=== PATIENT | female | born 1965 | race Caucasian/White ===

== ENCOUNTER 2019-06-21 19:02 | Emergency (ER) | payer OTHER ==
[~2019-06-21] VITALS: Ht 165.1 cm; Wt 200.9 kg
[~2019-06-21 19:02] MED LIST: FLUC150T PO; HYDR-3164 PO
[2019-06-21 19:21] VITALS: BP 140/71
[2019-06-21] MEDS ORDERED: ORPH100T PO (19:30)
[2019-06-21] MEDS ORDERED: METH4TAB2 PO (19:30)
--- NOTE | 2019-06-21 19:31 | PHYS DOC ---
Past Medical History Past Medical History: Anxiety, Depression, GERD, High Cholesterol Additional Past Medical Histor: kidney stone chronic knee pain Past Surgical History: Other Additional Past Surgical Histo: eye sx Smoking Status: Never Smoker Alcohol Use: None Drug Use: None Adult General Chief Complaint Chief Complaint: LOWER EXT PAIN [facility] HPI Patient is a 53 year old female who presents with right hip pain that radiates down the right leg. The patient states that she has had no trauma. The patient states that it is okay when she is walking and standing but when she reclines is when it hurts. She states her pain right now is 1 out of 10 in severity. Denies additional symptoms. Complete ROS were reviewed and found to be within normal limits, except as documented in the HPI Allergies Allergies Allergies Coded Allergies Type Severity Reaction Last Updated Verified amitriptyline HCl Adverse Reaction Intermediate Unknown 02/04/15 Yes Uncoded Allergies Type Severity Reaction Last Updated Verified red meat Adverse Reaction Mild GI upset 02/04/15 Physical Exam Physical Exam Constitutional: Well developed, well nourished, no acute distress, non-toxic appearance. [] HENT: Normocephalic, atraumatic Back: R lower back tenderness that radiates down the R leg. Neurologic: Alert and oriented X 3 Psychologic: Affect normal, judgement normal, mood normal. [] EKG EKG [] Radiology/Procedures Radiology/Procedures [] Course & Med Decision Making Course & Med Decision Making Pertinent Labs and Imaging studies reviewed. (See chart for details) Patient appears to be having sciatic leg pain. Will prescribe Medrol Dosepak, and prescribe muscle relaxer. Dragon Disclaimer Dragon Disclaimer This electronic medical record was generated, in whole or in part, using a voice recognition dictation system. Departure Departure Impression: Primary Impression: Sciatica Disposition: HOME, SELF-CARE Condition: STABLE Referrals: MARITA JJ MD (PCP) Patient Instructions: Sciatica Additional Instructions: Thank you for visiting [facility]. We appreciate you trusting us with your care. If any additional problems come up don't hesitate to return to visit us. Please follow up with your primary care provider so they can plan additional care if needed and know about the problem that you had. If symptoms worsen come back to the Emergency Department. Any concerning symptoms that start such as chest pain, shortness of air, weakness or numbness on one side of the body, running high fevers or any other concerning symptoms return to the ER. Please fill your medications at any pharmacy and follow the prescription instructions. Scripts Orphenadrine Citrate (ORPHENADRINE CITRATE) 100 Mg Tablet.er 100 MG PO BID PRN for MUSCLE PAIN for 5 Days, #10 TAB.SR Prov: MARITA CHAVEZ APRN 06/21/19 Methylprednisolone (MEDROL) 4 Mg Tab.ds.pk 1 PKG PO UD, #1 PKG Prov: MARITA CHAVEZ APRN 06/21/19 Problem Qualifiers Primary Impression: Sciatica Laterality: right Qualified Codes: M54.31 - Sciatica, right side MARITA CHAVEZ APRN Jun 21, 2019 19:31
== END 2019-06-21 20:16 | disposition home or self-care (01) ==
LOC: ER 19:02
DX: M54.31 Sciatica, right side (principal); R07.81 Pleurodynia; F41.9 Anxiety disorder, unspecified; F32.9 Major depressive disorder, single episode, unspecified; K21.9 Gastro-esophageal reflux disease without esophagitis; E78.00 Pure hypercholesterolemia, unspecified; G89.29 Other chronic pain; Z87.442 Personal history of urinary calculi; Z98.890 Other specified postprocedural states; Z91.018 Allergy to other foods; Z88.8 Allergy status to other drugs, medicaments and biological substances
CPT/HCPCS: 99284

== ENCOUNTER → 2019-08-24 | Outpatient (CLI) | payer OTHER ==
[~2019-08-24] MED LIST changes: +METH4TAB2 PO; +ORPH100T PO
--- NOTE | 2019-08-24 08:23 | RAD ---
ABDOMEN COMPLETE History: Reason: ABDOMINAL PAIN / Spl. Instructions: / History: Comparison: None. Technique: Sonographic examination of the abdomen was performed and multiple grayscale and color Doppler static images were obtained. Findings: Liver demonstrates increased echogenicity. The liver measures 17.5 cm. Portal flow is patent. Common bile duct measures 3 mm in diameter. Cholelithiasis. No gallbladder wall thickening. Positive sonographic Meraz sign. No pericholecystic fluid. Visualized pancreas is not well seen due to overlying bowel gas. The right kidney measures 12.3 x 5.1 x 3.9 cm. No hydronephrosis. The left kidney measures 13.1 x 5.3 x 4.7 cm. No hydronephrosis. The spleen measures 12 cm. Aorta and IVC not well seen due to overlying bowel gas. IMPRESSION: 1. Cholelithiasis with positive sonographic Meraz sign. No gallbladder wall thickening or pericholecystic fluid. HIDA scan can further evaluate gallbladder function as clinically warranted. 2. Hepatomegaly with increased echotexture, may indicate steatosis. Electronically signed by: Yayo Solis DO (08/24/2019 8:20 AM) [facility]
== END ==
LOC: US 06:52
PROVIDERS: ATTEND Family Medicine
DX: K80.20 Calculus of gallbladder without cholecystitis without obstruction (principal); R16.0 Hepatomegaly, not elsewhere classified
CPT/HCPCS: 76700

== ENCOUNTER 2019-10-23 16:14 | Inpatient (IN) | payer OTHER ==
[~2019-10-23] VITALS: Ht 167.6 cm; Wt 206.4 kg
[2019-10-23 16:30] VITALS: BP 122/65
--- NOTE | 2019-10-23 16:35 | NUR ---
Spoke with STEPAN Rolle nursing supervisor drying and softening re: obtaining bariatric bed, stated she would get one to pt later this evening.
[2019-10-23] MEDS ORDERED: ROSU20TA28 PO (16:36)
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
[2019-10-23] MEDS ORDERED: DOCUSATE SODIUM 100 MG CAPSULE. PO PRN (17:30)
[2019-10-23] MEDS ORDERED: ACETAMINOPHEN 325 MG TABLET. PO PRN (17:30)
--- NOTE | 2019-10-23 17:45 | NUR ---
[facility] stated they would fax list. Dr. Simmons on the unit, notified of list to be faxed by pharmacy.
--- NOTE | 2019-10-23 18:19 | NUR ---
Unable to visualize IV site per this RN and STEPAN Dorantes. SariahRn nursing supervisor contact lens stated she would come to attempt.
[2019-10-23] MEDS ORDERED: VANCOMYCIN 2 GM in IV NORMAL SALINE 500ML BAG 500 ML IV ONE (18:30)
[2019-10-23] MEDS ORDERED: HYDROcodone/APAP 5/325MG 1 TAB TABLET PO PRN (18:45)
[2019-10-23 19:30] LABS: ALBUMIN/GLOBULIN RATIO 0.7 (1.0-1.7); C-REACTIVE PROTEIN 55.8 mg/L (0-3.3); CALCIUM 8.8 mg/dL (8.5-10.1); CREATININE 0.8 mg/dL (0.6-1.0); GFR 75.6; POTASSIUM 3.8 mmol/L (3.5-5.1); TOTAL BILIRUBIN 0.5 mg/dL (0.2-1.0); TOTAL PROTEIN 7.4 g/dL (6.4-8.2)
[2019-10-23 19:47] VITALS: BP 120/56
[2019-10-23 20:25] LABS: BASO % 0 % (0-3); EOS # 0.4 x10^3/uL (0.0-0.7); EOS % 5 % (0-3); HEMATOCRIT 25.2 % (36.0-47.0); HEMOGLOBIN 8.2 g/dL (12.0-15.5); LYMPH # 1.5 x10^3/uL (1.0-4.8); LYMPH % 18 % (24-48); MEAN CORPUSCULAR HEMOGLOBIN 28 pg (25-35); MEAN CORPUSCULAR HGB CONC 33 g/dL (31-37); MEAN CORPUSCULAR VOLUME 87 fL (79-100); MONO # 0.6 x10^3/uL (0.0-1.1); MONO % 8 % (0-9); NEUT # 5.7 x10^3/uL (1.8-7.7); NEUT % 69 % (31-73); PLATELET COUNT 412 x10^3/uL (140-400); RED CELL DISTRIBUTION WIDTH 16.4 % (11.5-14.5); WHITE BLOOD COUNT 8.3 x10^3/uL (4.0-11.0)
[2019-10-23] MEDS: VANCOMYCIN PER PHARMACY MC PRN (20:55)
--- NOTE | 2019-10-23 20:59 | NUR ---
Pharmacy Vancomycin Dosing Note S:Consulted to monitor and dose vancomycin started 10/23/19. O:PAULINA CRISTINA is a 53 year old F with Cellulitis Possible abscess . Height: 5 feet, 6 inches Weight: 204.7 kg Hudson Body Weight: 59.30 Adjusted Body Weight: 117.46 Dosing Weight: Actual Other Antibiotics: Cefazolin 2gm IVPB Q8HRS LABS: Last BUN: 8 Last Creatinine: 0.8 Creatinine Clearance: 154 mL/min Last WBC: 8.3 Last Procalcitonin: Tmax (past 24 hours): 98.0 Microbiology: I/O: Drug Levels: Last level: on at Last dose given 10/23/19 at 2004 Vancomycin Dosing: Loading Dose: 2000 mg x1 Dosing Weight: Actual Target Trough: 10-20 A: Based on weight and est. CrCl of 154: P: 1. Vancomycin 2000mg once, followed by Vancomycin 1500 mg IV q8h. 2. Follow up Trough level on 10/24/19 at 1930. 3. Pharmacy will continue to monitor, follow and adjust therapy as needed. Tru Montes De Oca [facility], 10/23/19 2100
[2019-10-23 22:04] VITALS: BP 126/57
[2019-10-23] MEDS: GABAPENTIN 100 MG CAPSULE. PO SCH (22:19)
[2019-10-23] MEDS: ATORVASTATIN CALCIUM 40 MG TABLET. PO SCH (22:19)
[2019-10-23] MEDS: NYSTATIN TOPICAL POWDER 15GM BOTTLE. TP SCH (22:20)
--- NOTE | 2019-10-23 22:55 | RAD ---
Left lower extremity venous duplex study 10/23/2019 Clinical History: Left leg swelling. Technique: Using a combination of real time ultrasound imaging and color-flow and pulse Doppler imaging techniques along with graded compression and augmentation, duplex evaluation of the deep venous system of the the left lower extremity was performed. Multiple images were obtained. Findings: There is no sonographic evidence of deep venous thrombosis involving the visualized deep venous structures of the left lower extremity. Impression: Negative study. Electronically signed by: Keegan Mercado MD (10/23/2019 10:52 PM) [id number]
[2019-10-23] MEDS: HYDROcodone/APAP 7.5/325MG 1 TAB TABLET PO PRN (23:18)
[2019-10-24 03:52] VITALS: BP 114/46
[2019-10-24] MEDS: VANCOMYCIN 1.5 GM in IV NORMAL SALINE 500ML BAG 500 ML IV SCH ×3 (04:23→21:51)
[2019-10-24] MEDS: HYDROcodone/APAP 7.5/325MG 1 TAB TABLET PO PRN ×4 (05:39→21:52)
[2019-10-24 06:15] LABS: BASO % 0 % (0-3); EOS # 0.4 x10^3/uL (0.0-0.7); EOS % 6 % (0-3); HEMATOCRIT 23.7 % (36.0-47.0); HEMOGLOBIN 7.8 g/dL (12.0-15.5); LYMPH # 1.8 x10^3/uL (1.0-4.8); LYMPH % 28 % (24-48); MEAN CORPUSCULAR HEMOGLOBIN 28 pg (25-35); MEAN CORPUSCULAR HGB CONC 33 g/dL (31-37); MEAN CORPUSCULAR VOLUME 87 fL (79-100); MONO # 0.5 x10^3/uL (0.0-1.1); MONO % 8 % (0-9); NEUT # 3.8 x10^3/uL (1.8-7.7); NEUT % 58 % (31-73); PLATELET COUNT 369 x10^3/uL (140-400); RED BLOOD COUNT 2.74 x10^6/uL (3.50-5.40); RED CELL DISTRIBUTION WIDTH 16.1 % (11.5-14.5); WHITE BLOOD COUNT 6.5 x10^3/uL (4.0-11.0)
[2019-10-24 06:17] LABS: CALCIUM 8.2 mg/dL (8.5-10.1); CREATININE 0.7 mg/dL (0.6-1.0); GFR 88.2; POTASSIUM 3.7 mmol/L (3.5-5.1)
[2019-10-24 07:00] VITALS: BP 128/66
--- NOTE | 2019-10-24 08:43 | PDOC ---
Infectious Disease Note Vital Sign Vital Signs Vital Signs Date Time Temp Pulse Resp B/P (MAP) Pulse Ox O2 Delivery O2 Flow Rate FiO2 10/24/19 07:00 97.9 77 16 128/66 (86) 95 Room Air 97.9 Labs Lab Laboratory Tests Test 10/23/19 18:50 10/23/19 19:48 10/24/19 04:15 Sodium Level 140 mmol/L (136-145) 143 mmol/L (136-145) Potassium Level 3.8 mmol/L (3.5-5.1) 3.7 mmol/L (3.5-5.1) Chloride Level 103 mmol/L (98-107) 107 mmol/L (98-107) Carbon Dioxide Level 29 mmol/L (21-32) 29 mmol/L (21-32) Anion Gap 8 (6-14) 7 (6-14) Blood Urea Nitrogen 8 mg/dL (7-20) 7 mg/dL (7-20) Creatinine 0.8 mg/dL (0.6-1.0) 0.7 mg/dL (0.6-1.0) Estimated GFR (Cockcroft-Gault) 75.6 88.2 BUN/Creatinine Ratio 10 (6-20) Glucose Level 118 mg/dL (70-99) 92 mg/dL (70-99) Calcium Level 8.8 mg/dL (8.5-10.1) 8.2 mg/dL (8.5-10.1) Iron Level 23 ug/dL (50-170) Total Iron Binding Capacity 260 ug/dL (250-450) Iron Saturation 9 % (15-34) Total Bilirubin 0.5 mg/dL (0.2-1.0) Aspartate Amino Transf (AST/SGOT) 18 U/L (15-37) Alanine Aminotransferase (ALT/SGPT) 17 U/L (14-59) Alkaline Phosphatase 123 U/L (46-116) C-Reactive Protein, Quantitative 55.8 mg/L (0-3.3) Total Protein 7.4 g/dL (6.4-8.2) Albumin 3.0 g/dL (3.4-5.0) Albumin/Globulin Ratio 0.7 (1.0-1.7) White Blood Count 8.3 x10^3/uL (4.0-11.0) 6.5 x10^3/uL (4.0-11.0) Red Blood Count 2.90 x10^6/uL (3.50-5.40) 2.74 x10^6/uL (3.50-5.40) Hemoglobin 8.2 g/dL (12.0-15.5) 7.8 g/dL (12.0-15.5) Hematocrit 25.2 % (36.0-47.0) 23.7 % (36.0-47.0) Mean Corpuscular Volume 87 fL (79-100) 87 fL (79-100) Mean Corpuscular Hemoglobin 28 pg (25-35) 28 pg (25-35) Mean Corpuscular Hemoglobin Concent 33 g/dL (31-37) 33 g/dL (31-37) Red Cell Distribution Width 16.4 % (11.5-14.5) 16.1 % (11.5-14.5) Platelet Count 412 x10^3/uL (140-400) 369 x10^3/uL (140-400) Neutrophils (%) (Auto) 69 % (31-73) 58 % (31-73) Lymphocytes (%) (Auto) 18 % (24-48) 28 % (24-48) Monocytes (%) (Auto) 8 % (0-9) 8 % (0-9) Eosinophils (%) (Auto) 5 % (0-3) 6 % (0-3) Basophils (%) (Auto) 0 % (0-3) 0 % (0-3) Neutrophils # (Auto) 5.7 x10^3/uL (1.8-7.7) 3.8 x10^3/uL (1.8-7.7) Lymphocytes # (Auto) 1.5 x10^3/uL (1.0-4.8) 1.8 x10^3/uL (1.0-4.8) Monocytes # (Auto) 0.6 x10^3/uL (0.0-1.1) 0.5 x10^3/uL (0.0-1.1) Eosinophils # (Auto) 0.4 x10^3/uL (0.0-0.7) 0.4 x10^3/uL (0.0-0.7) Basophils # (Auto) 0.0 x10^3/uL (0.0-0.2) 0.0 x10^3/uL (0.0-0.2) Objective Assessment pt seen, consult dictated Plan Plan of Care / LEV JASMINE MD Oct 24, 2019 08:43
[2019-10-24] MEDS: NYSTATIN TOPICAL POWDER 15GM BOTTLE. TP SCH ×2 (09:02→21:52)
[2019-10-24] MEDS: GABAPENTIN 100 MG CAPSULE. PO SCH ×3 (09:02→21:51)
--- NOTE | 2019-10-24 09:11 | NUR ---
Spoke with [facility] re: pt's med list. They stated they would have someone fax the list.
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
--- NOTE | 2019-10-24 10:06 | NUR ---
Pt. sitting in chair, speaking with therapy. Very large pool of blood noted to be dripping from pt's L leg wound. Pt. states she has not moved. Abd's, Kerlix and chux placed around leg. Page sent to Dr. Clarke.
--- NOTE | 2019-10-24 10:20 | NUR ---
SW following. 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 Pt on IV vanc, cefazolin, wound care following. PT/OT ordered. SW will continue to follow.
--- NOTE | 2019-10-24 10:25 | NUR ---
Dr. Clarke on the unit and to see pt, notified of large amount of drainage from leg wound.
--- NOTE | 2019-10-24 10:27 | NUR ---
[facility] contacted again re: pt's med list. The pharmacy was sending to the incorrect fax number. Stated they would attempt again.
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
[2019-10-24 11:00] VITALS: BP 136/54
[2019-10-24] MEDS ORDERED: TRIA1TAB3 PO (11:06)
[2019-10-24] MEDS ORDERED: ERGO500027 PO (11:06)
[2019-10-24] MEDS ORDERED: CITA40TA5 PO (11:06)
[2019-10-24] MEDS ORDERED: IBUP800T19 PO (11:06)
[2019-10-24] MEDS ORDERED: SENN1TAB62 PO (11:06)
[2019-10-24] MEDS ORDERED: HYDR-2763 PO ×2 (11:06)
[2019-10-24] MEDS ORDERED: LEVO25TA4 PO (11:06)
[2019-10-24] MEDS ORDERED: FAMO20TA5 PO (11:06)
[2019-10-24] MEDS ORDERED: FLUC150T2 NS (11:06)
[2019-10-24] MEDS ORDERED: OXYC1TAB15 PO (11:06)
[2019-10-24] MEDS ORDERED: NORT25CA PO (11:06)
[2019-10-24] MEDS ORDERED: CRESTOR40 MG PO (11:06)
[2019-10-24] MEDS: PIPERACILLIN/TAZOBACTAM 4.5 GM in IV NORMAL SALINE 100ML 100 ML IV SCH ×2 (12:06→17:37)
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
[2019-10-24] MEDS ORDERED: BISACODYL 5 MG TABLET.DR. PO PRN (12:45)
[2019-10-24] MEDS ORDERED: POLYETHYLENE GLYCOL 3350 17 GM PACKET. PO PRN (12:45)
[2019-10-24] MEDS: FERROUS SULFATE 325 MG TABLET. PO SCH (13:43)
[2019-10-24] MEDS: PANTOPRAZOLE 40 MG TABLET.DR. PO SCH (13:43)
[2019-10-24] MEDS: LACTOBACILLUS RHAMNOSUS GG 1 CAPSULE. PO SCH ×2 (13:43→21:51)
[2019-10-24 15:00] VITALS: BP 130/63
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
[2019-10-24] MEDS ORDERED: CYANOCOBALAMIN (VITAMIN B-12) 1,000 MCG/ML VIAL IM ONE (16:15)
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
[2019-10-24] MEDS: CYANOCOBALAMIN (VITAMIN B-12) 1,000 MCG/ML VIAL IM SCH (17:15)
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
[2019-10-24 19:00] VITALS: BP 129/57
[2019-10-24 20:49] LABS: FECAL OB PT NEGATIVE (NEG)
[2019-10-24 21:04] LABS: VANC TR 19.6 mcg/mL (10.0-20.0)
[2019-10-24] MEDS: VANCOMYCIN PER PHARMACY MC PRN (21:24)
--- NOTE | 2019-10-24 21:25 | NUR ---
Pharmacy Vancomycin Dosing Note S: Consulted to monitor and dose vancomycin started 10/23/19. O: PAULINA CRISTINA is a 53 year old F with Cellulitis, Possible abscess . Other Antibiotics: Cefazolin 2gm IVPB Q8HRS LABS: Last BUN: 7 Last Creatinine: 0.7 Creatinine Clearance: 177 mL/min Last WBC: 6.5 Last Procalcitonin: Tmax (past 24 hours): 99.7 Microbiology: I/O: 200/- 1VOID Drug Levels: Last Trough level: 19.6 on 10/24/19 at 2035 Last dose given 10/24/19 at 1338 Vancomycin Dosing: Dosing Weight: Actual Target Trough: 10-20 A: Based on: Trough,Actual Wt and CrCl P: 1. 10/24/19 Continue Vancomycin 1500 mg IV q8h 2. Follow up Trough level in 5 to 7 days as needed 3. Pharmacy will continue to monitor, follow and adjust therapy as needed. BRANDEN LANGLEY RPH, 10/24/[id number] Signed: 10/24/19 at 2125 by BRANDEN LANGLEY RPH PHA
[2019-10-24] MEDS: ATORVASTATIN CALCIUM 40 MG TABLET. PO SCH (21:51)
[2019-10-24 23:00] VITALS: BP 123/52
[2019-10-25] MEDS: PIPERACILLIN/TAZOBACTAM 4.5 GM in IV NORMAL SALINE 100ML 100 ML IV SCH ×5 (00:10→23:57)
[2019-10-25 02:09] LABS: HEMOGLOBIN A1C 5.5 % (4.8-5.6)
[2019-10-25 03:00] VITALS: BP 135/61
[2019-10-25] MEDS: VANCOMYCIN 1.5 GM in IV NORMAL SALINE 500ML BAG 500 ML IV SCH ×3 (04:37→20:12)
[2019-10-25] MEDS: HYDROcodone/APAP 7.5/325MG 1 TAB TABLET PO PRN ×3 (06:52→22:09)
[2019-10-25 07:00] VITALS: BP_SYST 104; BP_SYST 117; BP_DIAS 46; BP_DIAS 49
[2019-10-25 07:59] LABS: BASO % 0 % (0-3); EOS # 0.4 x10^3/uL (0.0-0.7); EOS % 5 % (0-3); HEMATOCRIT 23.8 % (36.0-47.0); HEMOGLOBIN 7.8 g/dL (12.0-15.5); LYMPH # 1.2 x10^3/uL (1.0-4.8); LYMPH % 15 % (24-48); MEAN CORPUSCULAR HEMOGLOBIN 28 pg (25-35); MEAN CORPUSCULAR HGB CONC 33 g/dL (31-37); MEAN CORPUSCULAR VOLUME 86 fL (79-100); MONO # 0.5 x10^3/uL (0.0-1.1); MONO % 7 % (0-9); NEUT # 5.6 x10^3/uL (1.8-7.7); NEUT % 73 % (31-73); PLATELET COUNT 348 x10^3/uL (140-400); RED BLOOD COUNT 2.79 x10^6/uL (3.50-5.40); RED CELL DISTRIBUTION WIDTH 16.9 % (11.5-14.5); WHITE BLOOD COUNT 7.7 x10^3/uL (4.0-11.0)
[2019-10-25 08:03] LABS: CALCIUM 8.1 mg/dL (8.5-10.1); CREATININE 0.8 mg/dL (0.6-1.0); GFR 75.6; POTASSIUM 3.8 mmol/L (3.5-5.1)
[2019-10-25] MEDS: PANTOPRAZOLE 40 MG TABLET.DR. PO SCH (08:43)
[2019-10-25] MEDS: CYANOCOBALAMIN (VITAMIN B-12) 1,000 MCG/ML VIAL IM SCH (08:43)
[2019-10-25] MEDS: GABAPENTIN 100 MG CAPSULE. PO SCH ×3 (08:43→20:12)
[2019-10-25] MEDS: FERROUS SULFATE 325 MG TABLET. PO SCH (08:43)
[2019-10-25] MEDS: FOLIC ACID 1 MG TABLET. PO SCH (08:43)
[2019-10-25] MEDS: LACTOBACILLUS RHAMNOSUS GG 1 CAPSULE. PO SCH ×2 (08:43→20:12)
[2019-10-25] MEDS: NYSTATIN TOPICAL POWDER 15GM BOTTLE. TP SCH ×2 (08:44→20:12)
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
[2019-10-25] MEDS ORDERED: IOHEXOL 300 MG/ML 100ML VIAL. IV ONE (09:30)
--- NOTE | 2019-10-25 09:48 | NUR ---
SW following. Discussed with RN, PT/OT ordered, IV abx - pending cultures. SW will continue to follow.
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
--- NOTE | 2019-10-25 10:51 | PDOC ---
Date of Service: DATE: 10/25/19 TIME: 10:48 Subjective: Subjective: Sleepy. Had some nausea earlier but tolerating diet. No bleeding except oozing from leg. Objective: Objective: Started on B12 yesterday. Vital Signs: Vital Signs Date Time Temp Pulse Resp B/P (MAP) Pulse Ox O2 Delivery O2 Flow Rate FiO2 10/25/19 08:48 16 Room Air 10/25/19 07:00 97.8 82 117/49 (71) 92 97.8 Labs: Laboratory Tests Test 10/24/19 20:05 10/24/19 20:35 10/25/19 07:15 Stool Occult Blood Negative Vancomycin Level Trough 19.6 mcg/mL Vancomycin Last Dose Date Unk Vancomycin Last Dose Time Unk White Blood Count 7.7 x10^3/uL Red Blood Count 2.79 x10^6/uL Hemoglobin 7.8 g/dL Hematocrit 23.8 % Mean Corpuscular Volume 86 fL Mean Corpuscular Hemoglobin 28 pg Mean Corpuscular Hemoglobin Concent 33 g/dL Red Cell Distribution Width 16.9 % Platelet Count 348 x10^3/uL Neutrophils (%) (Auto) 73 % Lymphocytes (%) (Auto) 15 % Monocytes (%) (Auto) 7 % Eosinophils (%) (Auto) 5 % Basophils (%) (Auto) 0 % Neutrophils # (Auto) 5.6 x10^3/uL Lymphocytes # (Auto) 1.2 x10^3/uL Monocytes # (Auto) 0.5 x10^3/uL Eosinophils # (Auto) 0.4 x10^3/uL Basophils # (Auto) 0.0 x10^3/uL Sodium Level 140 mmol/L Potassium Level 3.8 mmol/L Chloride Level 105 mmol/L Carbon Dioxide Level 27 mmol/L Anion Gap 8 Blood Urea Nitrogen 8 mg/dL Creatinine 0.8 mg/dL Estimated GFR (Cockcroft-Gault) 75.6 Glucose Level 121 mg/dL Calcium Level 8.1 mg/dL Imaging: LE CT pending PE: GEN: NAD LUNGS: CTAB HEART: RRR ABD: NABS, S/ND/NT NEURO/PSYCH: A & O 3 A/P: LLE cellulitis Anemia - iron and B12 deficient BMI 73 -- Continue iron and B12 replacement, cellulitis treatment. Justicifation of Admission Dx: Justifications for Admission: Justification of Admission Dx: Yes Cellulitis: Cellulitis MALCOM MCKINNEY Oct 25, 2019 10:51
[2019-10-25 11:00] VITALS: BP 97/55
--- NOTE | 2019-10-25 13:55 | RAD ---
CT left tibia-fibula with contrast dated 10/25/2019. No comparison available. Clinical data indication: Swelling left calf. Possible cellulitis. TECHNIQUE: Contiguous axial imaging the left tibia-fibula performed following the intravenous demonstration of 75 cc Omnipaque 300. One or more of the following individualized dose reduction techniques were utilized for this examination: 1. Automated exposure control 2. Adjustment of the mA and/or kV according to patient size 3. Use of iterative reconstruction technique. FINDINGS: There is extensive edema within the subcutaneous tissues of the lower calf with associated skin thickening. Pockets of fluid are noted dependently along the anterior and posterior compartment musculature, without enhancement. No soft tissue gas. Fluid extends superiorly to the level of the knee joint. There is also some edema dependently within the subcutaneous tissues of the lower thigh. Moderate tricompartmental degenerative change at the knee joint with lateral patellar subluxation. Mild degenerative change at the ankle joint. No periostitis or bone destruction. No evidence of fracture. IMPRESSION: 1. Consistent edema throughout the subcutaneous tissues of the calf with associated skin thickening. Findings are nonspecific and could be related to given history of cellulitis. Neurogenic or vasogenic causes of edema are also possible. There is no evidence of drainable abscess. 2. No acute bony abnormality. 3. Degenerative changes as described. Electronically signed by: Skyler Ponce MD (10/25/2019 1:52 PM) [facility]
[2019-10-25 15:00] VITALS: BP 138/62
[2019-10-25] MEDS: ONDANSETRON PF 4 MG/2 ML VIAL. IV PRN (17:40)
[2019-10-25 19:00] VITALS: BP 132/69
--- NOTE | 2019-10-25 19:04 | PDOC ---
PROGRESS NOTES Date of Service DATE: 10/25/19 TIME: 19:01 Subjective Subjective I discussed the CT scan findings with her. There is no drainable abscess. She is happy that she will not require surgery. Objective Vital Signs Vital Signs Date Time Temp Pulse Resp B/P (MAP) Pulse Ox O2 Delivery O2 Flow Rate FiO2 10/25/19 18:36 16 Room Air 10/25/19 15:00 98.0 75 138/62 (87) 98 98.0 Physical Exam Dressings intact left calf. Labs Laboratory Tests Test 10/23/19 19:48 10/24/19 04:15 10/24/19 20:05 10/24/19 20:35 White Blood Count 8.3 x10^3/uL (4.0-11.0) 6.5 x10^3/uL (4.0-11.0) Red Blood Count 2.90 x10^6/uL (3.50-5.40) 2.81 x10^6/uL (3.50-5.70) Hemoglobin 8.2 g/dL (12.0-15.5) 7.8 g/dL (12.0-15.5) Hematocrit 25.2 % (36.0-47.0) 23.7 % (36.0-47.0) Mean Corpuscular Volume 87 fL (79-100) 87 fL (79-100) Mean Corpuscular Hemoglobin 28 pg (25-35) 28 pg (25-35) Mean Corpuscular Hemoglobin Concent 33 g/dL (31-37) 33 g/dL (31-37) Red Cell Distribution Width 16.4 % (11.5-14.5) 16.1 % (11.5-14.5) Platelet Count 412 x10^3/uL (140-400) 369 x10^3/uL (140-400) Neutrophils (%) (Auto) 69 % (31-73) 58 % (31-73) Lymphocytes (%) (Auto) 18 % (24-48) 28 % (24-48) Monocytes (%) (Auto) 8 % (0-9) 8 % (0-9) Eosinophils (%) (Auto) 5 % (0-3) 6 % (0-3) Basophils (%) (Auto) 0 % (0-3) 0 % (0-3) Neutrophils # (Auto) 5.7 x10^3/uL (1.8-7.7) 3.8 x10^3/uL (1.8-7.7) Lymphocytes # (Auto) 1.5 x10^3/uL (1.0-4.8) 1.8 x10^3/uL (1.0-4.8) Monocytes # (Auto) 0.6 x10^3/uL (0.0-1.1) 0.5 x10^3/uL (0.0-1.1) Eosinophils # (Auto) 0.4 x10^3/uL (0.0-0.7) 0.4 x10^3/uL (0.0-0.7) Basophils # (Auto) 0.0 x10^3/uL (0.0-0.2) 0.0 x10^3/uL (0.0-0.2) Absolute Reticulocyte Count 0.101 x10^6/uL (0.020-0.120) Percent Reticulocyte Count 3.6 % (0.5-2.3) Immature Reticulocyte Fraction 0.51 (0.20-0.60) Sodium Level 143 mmol/L (136-145) Potassium Level 3.7 mmol/L (3.5-5.1) Chloride Level 107 mmol/L (98-107) Carbon Dioxide Level 29 mmol/L (21-32) Anion Gap 7 (6-14) Blood Urea Nitrogen 7 mg/dL (7-20) Creatinine 0.7 mg/dL (0.6-1.0) Estimated GFR (Cockcroft-Gault) 88.2 Glucose Level 92 mg/dL (70-99) Calcium Level 8.2 mg/dL (8.5-10.1) Iron Level 20 ug/dL (50-170) Total Iron Binding Capacity 206 ug/dL (250-450) Iron Saturation 10 % (15-34) Ferritin 218 ng/mL (8-252) Vitamin B12 Level 197 pg/mL (247-911) Stool Occult Blood Negative (NEG) Vancomycin Level Trough 19.6 mcg/mL (10.0-20.0) Vancomycin Last Dose Date Unk Vancomycin Last Dose Time Unk Test 10/25/19 07:15 White Blood Count 7.7 x10^3/uL (4.0-11.0) Red Blood Count 2.79 x10^6/uL (3.50-5.40) Hemoglobin 7.8 g/dL (12.0-15.5) Hematocrit 23.8 % (36.0-47.0) Mean Corpuscular Volume 86 fL (79-100) Mean Corpuscular Hemoglobin 28 pg (25-35) Mean Corpuscular Hemoglobin Concent 33 g/dL (31-37) Red Cell Distribution Width 16.9 % (11.5-14.5) Platelet Count 348 x10^3/uL (140-400) Neutrophils (%) (Auto) 73 % (31-73) Lymphocytes (%) (Auto) 15 % (24-48) Monocytes (%) (Auto) 7 % (0-9) Eosinophils (%) (Auto) 5 % (0-3) Basophils (%) (Auto) 0 % (0-3) Neutrophils # (Auto) 5.6 x10^3/uL (1.8-7.7) Lymphocytes # (Auto) 1.2 x10^3/uL (1.0-4.8) Monocytes # (Auto) 0.5 x10^3/uL (0.0-1.1) Eosinophils # (Auto) 0.4 x10^3/uL (0.0-0.7) Basophils # (Auto) 0.0 x10^3/uL (0.0-0.2) Sodium Level 140 mmol/L (136-145) Potassium Level 3.8 mmol/L (3.5-5.1) Chloride Level 105 mmol/L (98-107) Carbon Dioxide Level 27 mmol/L (21-32) Anion Gap 8 (6-14) Blood Urea Nitrogen 8 mg/dL (7-20) Creatinine 0.8 mg/dL (0.6-1.0) Estimated GFR (Cockcroft-Gault) 75.6 Glucose Level 121 mg/dL (70-99) Calcium Level 8.1 mg/dL (8.5-10.1) Laboratory Tests Test 10/24/19 20:05 10/24/19 20:35 10/25/19 07:15 Stool Occult Blood Negative (NEG) Vancomycin Level Trough 19.6 mcg/mL (10.0-20.0) Vancomycin Last Dose Date Unk Vancomycin Last Dose Time Unk White Blood Count 7.7 x10^3/uL (4.0-11.0) Red Blood Count 2.79 x10^6/uL (3.50-5.40) Hemoglobin 7.8 g/dL (12.0-15.5) Hematocrit 23.8 % (36.0-47.0) Mean Corpuscular Volume 86 fL (79-100) Mean Corpuscular Hemoglobin 28 pg (25-35) Mean Corpuscular Hemoglobin Concent 33 g/dL (31-37) Red Cell Distribution Width 16.9 % (11.5-14.5) Platelet Count 348 x10^3/uL (140-400) Neutrophils (%) (Auto) 73 % (31-73) Lymphocytes (%) (Auto) 15 % (24-48) Monocytes (%) (Auto) 7 % (0-9) Eosinophils (%) (Auto) 5 % (0-3) Basophils (%) (Auto) 0 % (0-3) Neutrophils # (Auto) 5.6 x10^3/uL (1.8-7.7) Lymphocytes # (Auto) 1.2 x10^3/uL (1.0-4.8) Monocytes # (Auto) 0.5 x10^3/uL (0.0-1.1) Eosinophils # (Auto) 0.4 x10^3/uL (0.0-0.7) Basophils # (Auto) 0.0 x10^3/uL (0.0-0.2) Sodium Level 140 mmol/L (136-145) Potassium Level 3.8 mmol/L (3.5-5.1) Chloride Level 105 mmol/L (98-107) Carbon Dioxide Level 27 mmol/L (21-32) Anion Gap 8 (6-14) Blood Urea Nitrogen 8 mg/dL (7-20) Creatinine 0.8 mg/dL (0.6-1.0) Estimated GFR (Cockcroft-Gault) 75.6 Glucose Level 121 mg/dL (70-99) Calcium Level 8.1 mg/dL (8.5-10.1) Imaging Report reviewed and images independently reviewed. Extensive soft tissue edema but no focal or drainable abscess. The circumference of her leg just above the ankle joint is approximately 22 inches. [facility] [address] [place] [address] IMAGING REPORT Signed PATIENT: PAULINA CRISTINA ACCOUNT: [id number] : 1965 LOCATION: [address] [place] [address] AGE: 53 SEX: F EXAM STATUS: ADM IN ORD. PHYSICIAN: FRANCHESKA VILLALPANDO MD REASON: cellulitis of LEFT calf PROCEDURE: CT LOW EXTREMITY W/CONTRAST LT CT left tibia-fibula with contrast dated 10/25/2019. No comparison available. Clinical data indication: Swelling left calf. Possible cellulitis. TECHNIQUE: Contiguous axial imaging the left tibia-fibula performed following the intravenous demonstration of 75 cc Omnipaque 300. One or more of the following individualized dose reduction techniques were utilized for this examination: 1. Automated exposure control 2. Adjustment of the mA and/or kV according to patient size 3. Use of iterative reconstruction technique. FINDINGS: There is extensive edema within the subcutaneous tissues of the lower calf with associated skin thickening. Pockets of fluid are noted dependently along the anterior and posterior compartment musculature, without enhancement. No soft tissue gas. Fluid extends superiorly to the level of the knee joint. There is also some edema dependently within the subcutaneous tissues of the lower thigh. Moderate tricompartmental degenerative change at the knee joint with lateral patellar subluxation. Mild degenerative change at the ankle joint. No periostitis or bone destruction. No evidence of fracture. IMPRESSION: 1. Consistent edema throughout the subcutaneous tissues of the calf with associated skin thickening. Findings are nonspecific and could be related to given history of cellulitis. Neurogenic or vasogenic causes of edema are also possible. There is no evidence of drainable abscess. 2. No acute bony abnormality. 3. Degenerative changes as described. Electronically signed by: Marita Ponce MD (10/25/2019 1:52 PM) [facility] [place] and SIGNED BY: MARITA PONCE MD DATE: 10/25/19 4502 Assessment Assessment Left leg cellulitis. No drainable abscess. Plan Plan of Care Continue nonoperative care with antibiotics, wound care, elevation, rest. Justicifation of Admission Dx: Justifications for Admission: Justification of Admission Dx: Yes Cellulitis: Cellulitis FRANCHESKA VILLALPANDO MD Oct 25, 2019 19:03
[2019-10-25] MEDS: ATORVASTATIN CALCIUM 40 MG TABLET. PO SCH (20:12)
[2019-10-25 23:00] VITALS: BP 123/58
[2019-10-26] VITALS (7 sets, daily range): BP systolic 115–125; BP diastolic 47–83
[2019-10-26] MEDS: VANCOMYCIN 1.5 GM in IV NORMAL SALINE 500ML BAG 500 ML IV SCH (04:10)
[2019-10-26] MEDS: PANTOPRAZOLE 40 MG TABLET.DR. PO SCH (06:08)
[2019-10-26] MEDS: PIPERACILLIN/TAZOBACTAM 4.5 GM in IV NORMAL SALINE 100ML 100 ML IV SCH ×4 (06:08→23:52)
[2019-10-26] MEDS: HYDROcodone/APAP 7.5/325MG 1 TAB TABLET PO PRN ×5 (06:11→23:53)
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
--- NOTE | 2019-10-26 10:05 | PDOC ---
Date of Service: DATE: 10/26/19 TIME: 10:03 Subjective: Subjective: No GI complaints. No nausea, no diarrhea. Objective: Vital Signs: Vital Signs Date Time Temp Pulse Resp B/P (MAP) Pulse Ox O2 Delivery O2 Flow Rate FiO2 10/26/19 07:23 16 Room Air 10/26/19 07:00 98.3 82 115/47 (69) 91 98.3 Labs: ORDERED: ANAER/AEROB/GS COMMENTS: LEG WOUND GRAM STAIN Final Final GRAM NEGATIVE RODS:MANY GRAM POSITIVE COCCI:RARE SQUAMOUS EPI CELL:RARE PMN (WBCs):FEW Unless otherwise specified, Testing Performed by: [address] [address] For Inquires, the Physician may contact the Microbiology department at [phone] ANAEROBIC-AEROBIC CULTURE Preliminary Preliminary MIXED AEROBIC DEREJE on 10/25/19 at 1443 INCLUDING: MODERATE [PSEUDOMONAS AERUGINOSA] MANY [ENTEROBACTER CLOACAE COMPLEX] MODERATE [STAPHYLOCOCCUS EPIDERMIDIS] MODERATE [CORYNEBACTERIUM AMYCOLATUM] PSEUDOMONAS AERUGINOSA ENTEROBACTER CLOACAE COMPLEX STAPHYLOCOCCUS EPIDERMIDIS CORYNEBACTERIUM AMYCOLATUM BLOOD CULTURE Preliminary NO GROWTH AFTER 2 DAYS PE: GEN: morbidly obese LUNGS: CTAB HEART: RRR ABD: non-tender NEURO/PSYCH: A & O 3 A/P: LLE cellulitis - atbx per ID Anemia - on iron and B12 replacement BMI 73 -- Stable GI-rogers. Justicifation of Admission Dx: Justifications for Admission: Justification of Admission Dx: Yes Cellulitis: Cellulitis MALCOM MCKINNEY Oct 26, 2019 10:05
[2019-10-26] MEDS: FERROUS SULFATE 325 MG TABLET. PO SCH (10:31)
[2019-10-26] MEDS: LACTOBACILLUS RHAMNOSUS GG 1 CAPSULE. PO SCH ×2 (10:31→21:19)
[2019-10-26] MEDS: GABAPENTIN 100 MG CAPSULE. PO SCH ×3 (10:31→21:19)
[2019-10-26] MEDS: FOLIC ACID 1 MG TABLET. PO SCH (10:31)
[2019-10-26] MEDS: NYSTATIN TOPICAL POWDER 15GM BOTTLE. TP SCH ×2 (10:32→21:20)
[2019-10-26] MEDS: CYANOCOBALAMIN (VITAMIN B-12) 1,000 MCG/ML VIAL IM SCH (10:33)
--- NOTE | 2019-10-26 16:02 | NUR ---
Wound care Pt seen with Dr Martins, see consult. Recommend general surgery consult for debridement and vac placement. Packed wound with 1/2" iodoform gauze packing and covered with absorbant pad and kerlix. Recommend to change packing daily and pads PRN for drainage. Copious brown drainage noted with packing. Discussed POC with pt, will follow up on Tuesday.
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
[2019-10-26] MEDS: ATORVASTATIN CALCIUM 40 MG TABLET. PO SCH (21:19)
[2019-10-27 03:00] VITALS: BP 126/57
[2019-10-27] MEDS: PANTOPRAZOLE 40 MG TABLET.DR. PO SCH (06:16)
[2019-10-27] MEDS: PIPERACILLIN/TAZOBACTAM 4.5 GM in IV NORMAL SALINE 100ML 100 ML IV SCH (06:16)
[2019-10-27] MEDS: HYDROcodone/APAP 7.5/325MG 1 TAB TABLET PO PRN ×4 (06:16→22:18)
[2019-10-27 07:59] VITALS: BP 105/82
[2019-10-27] MEDS: GABAPENTIN 100 MG CAPSULE. PO SCH ×3 (08:35→21:07)
[2019-10-27] MEDS: LACTOBACILLUS RHAMNOSUS GG 1 CAPSULE. PO SCH ×2 (08:35→21:07)
[2019-10-27] MEDS: FERROUS SULFATE 325 MG TABLET. PO SCH (08:36)
[2019-10-27] MEDS: CYANOCOBALAMIN (VITAMIN B-12) 1,000 MCG/ML VIAL IM SCH (08:36)
[2019-10-27] MEDS: FOLIC ACID 1 MG TABLET. PO SCH (08:36)
[2019-10-27] MEDS: NYSTATIN TOPICAL POWDER 15GM BOTTLE. TP SCH ×2 (08:37→21:15)
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
[2019-10-27 11:56] VITALS: BP 118/52
[2019-10-27] MEDS: MEROPENEM 500 MG in IV NORMAL SALINE 50ML 50 ML IV SCH ×3 (12:09→23:35)
[2019-10-27 15:59] VITALS: BP 111/58
[2019-10-27 19:00] VITALS: BP 100/61
[2019-10-27] MEDS: ATORVASTATIN CALCIUM 40 MG TABLET. PO SCH (21:07)
[2019-10-27 22:57] VITALS: BP 102/51
[2019-10-27] MEDS ORDERED: diphenhydrAMINE HCL 25 MG CAPSULE PO PRN (23:45)
[2019-10-28 03:50] VITALS: BP 114/56
[2019-10-28] MEDS: MEROPENEM 500 MG in IV NORMAL SALINE 50ML 50 ML IV SCH ×3 (05:50→18:34)
[2019-10-28] MEDS: PANTOPRAZOLE 40 MG TABLET.DR. PO SCH (05:50)
[2019-10-28] MEDS: HYDROcodone/APAP 7.5/325MG 1 TAB TABLET PO PRN ×4 (05:54→21:41)
[2019-10-28 07:00] VITALS: BP 116/50
[2019-10-28] MEDS: LACTOBACILLUS RHAMNOSUS GG 1 CAPSULE. PO SCH ×2 (08:10→21:42)
[2019-10-28] MEDS: FERROUS SULFATE 325 MG TABLET. PO SCH (08:10)
[2019-10-28] MEDS: FOLIC ACID 1 MG TABLET. PO SCH (08:10)
[2019-10-28] MEDS: CYANOCOBALAMIN (VITAMIN B-12) 1,000 MCG/ML VIAL IM SCH (08:10)
[2019-10-28] MEDS: GABAPENTIN 100 MG CAPSULE. PO SCH ×3 (08:11→21:41)
[2019-10-28] MEDS: NYSTATIN TOPICAL POWDER 15GM BOTTLE. TP SCH ×2 (08:12→21:44)
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
[2019-10-28 11:00] VITALS: BP 121/50
[2019-10-28 15:00] VITALS: BP 122/61
[2019-10-28 19:00] VITALS: BP 125/60
[2019-10-28] MEDS: ATORVASTATIN CALCIUM 40 MG TABLET. PO SCH (21:42)
[2019-10-28 23:00] VITALS: BP 135/54
[2019-10-29] MEDS: MEROPENEM 500 MG in IV NORMAL SALINE 50ML 50 ML IV SCH ×4 (00:11→17:51)
[2019-10-29 03:00] VITALS: BP 156/91
[2019-10-29] MEDS: HYDROcodone/APAP 7.5/325MG 1 TAB TABLET PO PRN ×5 (03:15→22:04)
[2019-10-29 07:00] VITALS: BP 128/59
[2019-10-29] MEDS: PANTOPRAZOLE 40 MG TABLET.DR. PO SCH (07:41)
--- NOTE | 2019-10-29 09:36 | PDOC ---
Infectious Disease Note Subjective: Subjective Pt says feels better pain is under control Denies F/C/N/V/D/SOA/cough/rash Vital Signs: Vital Signs Vital Signs Date Time Temp Pulse Resp B/P (MAP) Pulse Ox O2 Delivery O2 Flow Rate FiO2 10/29/19 07:00 98.0 74 18 128/59 (82) 93 Room Air 98.0 Physical Exam: PHYSICAL EXAM GENERAL: Propped up in bed, alert, in NAD HEENT: Oral cavity pink, moist. No thrush NECK: Supple, no JVP, no lymphadenopathy. LUNGS: Clear. HEART: S1, S2 regular. ABDOMEN: Obese, BS present, soft, nontender : No Sagastume EXTREMITIES: Wound on the left lateral leg is bandaged. Not taken down at this time The patient has massive legs with even the pannus is on the knee or the thigh. The right forearm area is very well healed. NEUROLOGIC: Alert, awake and appropriate. No focal neurologic deficit. PIV Medications: Inpatient Meds: Current Medications Medications (Trade) Dose Ordered Sig/Madeline Start Time Stop Time Status Last Admin Dose Admin Acetaminophen (Tylenol) 650 mg PRN Q4HRS PRN 10/23/19 17:30 10/27/19 21:10 650 MG Acetaminophen/ Hydrocodone Bitart (Lortab 5/325) 1 tab PRN Q6HRS PRN 10/23/19 18:45 10/23/19 22:57 DC 10/23/19 19:22 1 TAB Acetaminophen/ Hydrocodone Bitart (Lortab 7.5/325) 1 tab PRN Q4HRS PRN 10/24/19 11:45 10/29/19 03:15 1 TAB Atorvastatin Calcium (Lipitor) 80 mg QHS 10/23/19 23:00 10/28/19 21:42 80 MG Bisacodyl (Dulcolax Tab) 5 mg PRN DAILY PRN 10/24/19 12:45 Cefazolin Sodium/ Dextrose 50 ml @ 100 mls/hr Q8HRS 10/23/19 22:00 10/24/19 08:50 DC 10/24/19 05:41 100 MLS/HR Cyanocobalamin (Vitamin B-12) 1,000 mcg DAILY08 10/24/19 17:15 10/28/19 08:10 1,000 MCG Diphenhydramine HCl (Benadryl) 25 mg PRN Q6HRS PRN 10/27/19 23:45 10/27/19 23:50 25 MG Docusate Sodium (Colace) 100 mg PRN BID PRN 10/23/19 17:30 Enoxaparin Sodium (Lovenox 60mg Syringe) 60 mg Q12HR 10/23/19 21:00 10/28/19 21:43 60 MG Ferrous Sulfate (Feosol) 325 mg DAILYWBKFT 10/24/19 13:00 10/28/19 08:10 325 MG Folic Acid (Folic Acid) 1 mg DAILY 10/25/19 09:00 10/28/19 08:10 1 MG Gabapentin (Neurontin) 100 mg TID 10/23/19 21:00 10/28/19 21:41 100 MG Iohexol (Omnipaque 300 Mg/ml) 75 ml 1X ONCE 10/25/19 09:30 10/25/19 09:31 DC 10/25/19 09:30 75 ML Lactobacillus Rhamnosus (Culturelle) 1 cap BID 10/24/19 13:00 10/28/19 21:42 1 CAP Meropenem 500 mg/ Sodium Chloride 50 ml @ 100 mls/hr Q6HRS 10/27/19 12:00 10/29/19 06:00 100 MLS/HR Nystatin (Nystop) 1 aren BID 10/23/19 21:00 10/28/19 21:44 1 AREN Ondansetron HCl (Zofran) 4 mg PRN Q4HRS PRN 10/23/19 17:30 10/25/19 17:40 4 MG Pantoprazole Sodium (Protonix) 40 mg DAILYAC 10/24/19 13:00 10/29/19 07:41 40 MG Piperacillin Sod/ Tazobactam Sod 4.5 gm/Sodium Chloride 100 ml @ 200 mls/hr Q6HRS 10/24/19 12:00 10/27/19 10:08 DC 10/27/19 06:16 200 MLS/HR Polyethylene Glycol (miraLAX PACKET) 17 gm PRN DAILY PRN 10/24/19 12:45 Vancomycin HCl (Vanco Per Pharmacy) 1 each PRN DAILY PRN 10/23/19 17:30 10/26/19 09:43 DC 10/24/19 21:24 1 EACH Vancomycin HCl (Vancomycin Trough Level) 1 each 1X ONCE 10/24/19 19:30 10/24/19 19:31 DC 10/24/19 20:30 1 EACH Vancomycin HCl 1.5 gm/Sodium Chloride 500 ml @ 250 mls/hr Q8H 10/24/19 04:00 10/26/19 09:38 DC 10/26/19 04:10 250 MLS/HR Vancomycin HCl 2 gm/Sodium Chloride 500 ml @ 250 mls/hr 1X ONCE 10/23/19 18:30 10/23/19 20:29 DC 10/23/19 20:05 250 MLS/HR Labs: Micro RUN DATE: 10/27/19 [facility] *LIVE* PAGE 1 RUN TIME: 1217 Specimen Inquiry PATIENT: PAULINA CRISTINA ACCT: [id number] LOC: [address] [place] [address] U: [id number] AGE/SX: 53/F ROOM: 438 RE10/23/[address]: ROSLYN CARLOS MD : [id number] BED: 1 DIS: STATUS: ADM IN TLOC: SPEC #: [id number] MABLE: 10/23/19 STATUS: SHELBY JOSEPH #: [id number] RECD: 10/23/[address]: ROSLYN CARLOS MD SOURCE: ABSCESS ENTR: 10/23/[address] [facility] [address]: LEV JASMINE MD [facility]: MARITA JJ MD ORDERED: ANAER/AEROB/GS COMMENTS: LEG WOUND Procedure Result GRAM STAIN Final Final GRAM NEGATIVE RODS:MANY GRAM POSITIVE COCCI:RARE SQUAMOUS EPI CELL:RARE PMN (WBCs):FEW Unless otherwise specified, Testing Performed by: [address] [address] For Inquires, the Physician may contact the Microbiology department at [phone] ANAEROBIC-AEROBIC CULTURE Preliminary Preliminary MIXED AEROBIC DEREJE on 10/25/19 at 1443 INCLUDING: MODERATE [PSEUDOMONAS AERUGINOSA] MANY [ENTEROBACTER CLOACAE COMPLEX] MODERATE [STAPHYLOCOCCUS EPIDERMIDIS] MODERATE [CORYNEBACTERIUM AMYCOLATUM] MODERATE ANAEROBIC GRAM NEGATIVE RODS on 10/27/19 at 1213 FINAL ID= [BACTEROIDES OVATUS GROUP] PSEUDOMONAS AERUGINOSA ENTEROBACTER CLOACAE COMPLEX STAPHYLOCOCCUS EPIDERMIDIS CORYNEBACTERIUM AMYCOLATUM UNIDENTIFIED ORGANISM BACTEROIDES OVATUS GROUP ANTIMICROBIAL SUSCEPTIBILITY Preliminary Comment NEG JOSÉ ANTONIO 56 PSEUDOMONAS AERUGINOSA ANTIBIOTIC RESULT INTERPRETATION AMIKACIN <=16 S AZTREONAM <=4 S CEFTAZIDIME 4 S CIPROFLOXACIN <=0.25 S CEFEPIME <=2 S CONTINUED ON NEXT PAGE RUN DATE: 10/27/19 [facility] *LIVE* PAGE 2 RUN TIME: 1217 Specimen Inquiry SPEC: [id number] PATIENT: PAULINA CRISTINA [id number] (Continued) Procedure Result ANTIMICROBIAL SUSCEPTIBILITY Preliminary (continued) CEFTAZIDIME/AVIBACTAM <=4 S GENTAMICIN <=2 S LEVOFLOXACIN <=0.5 S MEROPENEM <=1 S PIPERACILLIN/TAZOBACTAM <=8 S TOBRAMYCIN <=2 S Unless otherwise specified, Testing Performed by: [facility] [address] [place] [address] For Inquires, the Physician may contact the Microbiology department at [phone] END OF REPORT Objective: Assessment: Left leg cellulitis Left leg wound + PSA, Enterobacter cloacae, Staph epi, corynebacterum, bacteroides and unidentified organism Super morbid obesity. Lymphedema. Hypothyroidism. Hyperlipidemia. Plan: Plan of Care Continue meropenem ( 10/26) Continue probiotics Nystatin powder to affected areas Pain management per primary Follow-up cultures/susceptibilities for enterobacter, still pending per d/w micro today.... Supportive care d/w AMAURY FLORES MD Oct 29, 2019 09:36
[2019-10-29] MEDS: FOLIC ACID 1 MG TABLET. PO SCH (09:56)
[2019-10-29] MEDS: LACTOBACILLUS RHAMNOSUS GG 1 CAPSULE. PO SCH ×2 (09:56→20:58)
[2019-10-29] MEDS: GABAPENTIN 100 MG CAPSULE. PO SCH ×3 (09:56→20:58)
[2019-10-29] MEDS: FERROUS SULFATE 325 MG TABLET. PO SCH (09:56)
[2019-10-29] MEDS: NYSTATIN TOPICAL POWDER 15GM BOTTLE. TP SCH ×2 (09:58→20:59)
[2019-10-29] MEDS: CYANOCOBALAMIN (VITAMIN B-12) 1,000 MCG/ML VIAL IM SCH (10:02)
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
--- NOTE | 2019-10-29 10:57 | PDOC ---
Date of Service: DATE: 10/29/19 TIME: 10:55 Subjective: Subjective: On the phone - indicates doing okay. Objective: Objective: 2 stools charted yesterday. Vital Signs: Vital Signs Date Time Temp Pulse Resp B/P (MAP) Pulse Ox O2 Delivery O2 Flow Rate FiO2 10/29/19 10:10 93 Room Air 10/29/19 07:00 98.0 74 18 128/59 (82) 98.0 PE: GEN: NAD, on the phone HEART: RRR ABD: obese EXTREM: LLE cellulitis, lymphedema NEURO/PSYCH: A & O 3 A/P: LLE cellulitis - atbx per ID Anemia - on iron and B12 replacement, Hgb checked 10/24 BMI 73 -- Remains stable GI-rogers. Justicifation of Admission Dx: Justifications for Admission: Justification of Admission Dx: Yes Cellulitis: Cellulitis MALCOM MCKINNEY Oct 29, 2019 10:57
--- NOTE | 2019-10-29 10:59 | NUR ---
SW following. Discussed with RN, pt has surgery consult, COVID-19 pending. Plan for discharge is [facility]. Currently on IV meropenem. BAYRON will continue to follow.
[2019-10-29 11:14] VITALS: BP 127/53
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
[2019-10-29 15:00] VITALS: BP 141/52
--- NOTE | 2019-10-29 16:52 | NUR ---
Wound Care Note Wound Type/Assessment: Patient has a left lateral leg wound. Wound is draining large amount of serous and rust colored fluid. Mouth of wound is small but with probing opens to a large, deep area of undermining. Lower leg is edematous and reddened. Treatment Recommendations/Plan: Packed wound with a small gauze roll. Taped tail securely to the leg. Covered area with and ABD for additional drainage collection. Patient was seen with me by Surgeon, Dr. Beck. Treatment plan is for Dr. Beck to take to surgery tomorrow and de-roof the undermining, copiously irrigate and apply a Veriflow wound vac. Education provided: Patient was educated on the nature of the wound, ongoing plan of care and usage of a wound vac. Offloading surface/device: N/A Recommended Referrals/Tests: N/A Discharge Recommendations for dressings: Patient most likely will be discharged with a wound vac for home use.
[2019-10-29 19:00] VITALS: BP 139/57
[2019-10-29] MEDS: ATORVASTATIN CALCIUM 40 MG TABLET. PO SCH (20:58)
[2019-10-29 23:10] VITALS: BP 129/63
[2019-10-30] VITALS (12 sets, daily range): BP systolic 113–150; BP diastolic 56–75
[2019-10-30] MEDS: MEROPENEM 500 MG in IV NORMAL SALINE 50ML 50 ML IV SCH ×5 (00:14→23:15)
[2019-10-30] MEDS: HYDROcodone/APAP 7.5/325MG 1 TAB TABLET PO PRN ×5 (02:06→23:14)
[2019-10-30] MEDS ORDERED: PROCHLORPERAZINE 10 MG/2 ML VIAL. IV PRN ×2 (07:00→15:00)
[2019-10-30] MEDS ORDERED: IV RINGERS,LACTATED 1000ML 1,000 ML IV SCH ×2 (07:00→14:59)
[2019-10-30] MEDS: PANTOPRAZOLE 40 MG TABLET.DR. PO SCH (07:30)
[2019-10-30] MEDS: FERROUS SULFATE 325 MG TABLET. PO SCH (08:00)
[2019-10-30] MEDS: GABAPENTIN 100 MG CAPSULE. PO SCH ×3 (08:04→20:43)
[2019-10-30] MEDS: FOLIC ACID 1 MG TABLET. PO SCH (08:06)
[2019-10-30] MEDS: NYSTATIN TOPICAL POWDER 15GM BOTTLE. TP SCH ×2 (08:06→20:44)
[2019-10-30] MEDS: LACTOBACILLUS RHAMNOSUS GG 1 CAPSULE. PO SCH ×2 (08:06→20:43)
[2019-10-30] MEDS: CYANOCOBALAMIN (VITAMIN B-12) 1,000 MCG/ML VIAL IM SCH (08:09)
--- NOTE | 2019-10-30 09:34 | PDOC ---
Infectious Disease Note Subjective: Subjective Pt says feels better pain is under control Denies F/C/N/V/D/SOA/cough/rash Vital Signs: Vital Signs Vital Signs Date Time Temp Pulse Resp B/P (MAP) Pulse Ox O2 Delivery O2 Flow Rate FiO2 10/30/19 07:43 97.9 74 18 116/64 (81) 96 Room Air 97.9 Physical Exam: PHYSICAL EXAM GENERAL: Propped up in bed, alert, in NAD HEENT: Oral cavity pink, moist. No thrush NECK: Supple, no JVP, no lymphadenopathy. LUNGS: Clear. HEART: S1, S2 regular. ABDOMEN: Obese, BS present, soft, nontender : No Sagastume EXTREMITIES: Wound on the left lateral leg is bandaged. Not taken down at this time The patient has massive legs with even the pannus is on the knee or the thigh. The right forearm area is very well healed. NEUROLOGIC: Alert, awake and appropriate. No focal neurologic deficit. PIV Medications: Inpatient Meds: Current Medications Medications (Trade) Dose Ordered Sig/Madeline Start Time Stop Time Status Last Admin Dose Admin Acetaminophen (Tylenol) 650 mg PRN Q4HRS PRN 10/23/19 17:30 10/27/19 21:10 650 MG Acetaminophen/ Hydrocodone Bitart (Lortab 5/325) 1 tab PRN Q6HRS PRN 10/23/19 18:45 10/23/19 22:57 DC 10/23/19 19:22 1 TAB Acetaminophen/ Hydrocodone Bitart (Lortab 7.5/325) 1 tab PRN Q4HRS PRN 10/24/19 11:45 10/30/19 06:09 1 TAB Atorvastatin Calcium (Lipitor) 80 mg QHS 10/23/19 23:00 10/29/19 20:58 80 MG Bisacodyl (Dulcolax Tab) 5 mg PRN DAILY PRN 10/24/19 12:45 Cefazolin Sodium/ Dextrose 50 ml @ 100 mls/hr Q8HRS 10/23/19 22:00 10/24/19 08:50 DC 10/24/19 05:41 100 MLS/HR Cyanocobalamin (Vitamin B-12) 1,000 mcg DAILY08 10/24/19 17:15 10/30/19 08:09 1,000 MCG Diphenhydramine HCl (Benadryl) 25 mg PRN Q6HRS PRN 10/27/19 23:45 10/27/19 23:50 25 MG Docusate Sodium (Colace) 100 mg PRN BID PRN 10/23/19 17:30 Enoxaparin Sodium (Lovenox 60mg Syringe) 60 mg Q12HR 10/23/19 21:00 10/29/19 23:00 DC 10/29/19 20:59 60 MG Ferrous Sulfate (Feosol) 325 mg DAILYWBKFT 10/24/19 13:00 10/29/19 09:56 325 MG Folic Acid (Folic Acid) 1 mg DAILY 10/25/19 09:00 10/29/19 09:56 1 MG Gabapentin (Neurontin) 100 mg TID 10/23/19 21:00 10/30/19 08:04 100 MG Iohexol (Omnipaque 300 Mg/ml) 75 ml 1X ONCE 10/25/19 09:30 10/25/19 09:31 DC 10/25/19 09:30 75 ML Lactobacillus Rhamnosus (Culturelle) 1 cap BID 10/24/19 13:00 10/29/19 20:58 1 CAP Meropenem 500 mg/ Sodium Chloride 50 ml @ 100 mls/hr Q6HRS 10/27/19 12:00 10/30/19 06:09 100 MLS/HR Nystatin (Nystop) 1 aren BID 10/23/19 21:00 10/29/19 20:59 1 AREN Ondansetron HCl (Zofran) 4 mg PRN Q4HRS PRN 10/23/19 17:30 10/25/19 17:40 4 MG Pantoprazole Sodium (Protonix) 40 mg DAILYAC 10/24/19 13:00 10/29/19 07:41 40 MG Piperacillin Sod/ Tazobactam Sod 4.5 gm/Sodium Chloride 100 ml @ 200 mls/hr Q6HRS 10/24/19 12:00 10/27/19 10:08 DC 10/27/19 06:16 200 MLS/HR Polyethylene Glycol (miraLAX PACKET) 17 gm PRN DAILY PRN 10/24/19 12:45 Prochlorperazine Edisylate (Compazine) 5 mg PACU PRN PRN 10/30/19 07:00 10/30/19 20:00 Ringer's Solution 1,000 ml @ 30 mls/hr Q24H 10/30/19 07:00 10/30/19 18:59 10/30/19 07:00 30 MLS/HR Vancomycin HCl (Vanco Per Pharmacy) 1 each PRN DAILY PRN 10/23/19 17:30 10/26/19 09:43 DC 10/24/19 21:24 1 EACH Vancomycin HCl (Vancomycin Trough Level) 1 each 1X ONCE 10/24/19 19:30 10/24/19 19:31 DC 10/24/19 20:30 1 EACH Vancomycin HCl 1.5 gm/Sodium Chloride 500 ml @ 250 mls/hr Q8H 10/24/19 04:00 10/26/19 09:38 DC 10/26/19 04:10 250 MLS/HR Vancomycin HCl 2 gm/Sodium Chloride 500 ml @ 250 mls/hr 1X ONCE 10/23/19 18:30 10/23/19 20:29 DC 10/23/19 20:05 250 MLS/HR Labs: Micro RUN DATE: 10/29/19 [facility] LAB *LIVE* PAGE 1 RUN TIME: 2724 Specimen Inquiry PATIENT: PAULINA CRISTINA ACCT: [id number] LOC: [address] [place] [address] U: [id number] AGE/SX: 53/F ROOM: [facility] RE10/23/[address]: ROSLYN CARLOS MD : 1965 BED: 1 DIS: STATUS: ADM IN TLOC: SPEC #: [id number] MABLE: 10/23/19 STATUS: COMP REQ #: [id number] RECD: 10/23/[address]: ROSLYN CARLOS MD SOURCE: ABSCESS ENTR: 10/23/[address]: LEV JASMINE MD [facility]: MARITA JJ MD ORDERED: ANNITA/USHA/RG COMMENTS: LEG WOUND Procedure Result GRAM STAIN Final Final GRAM NEGATIVE RODS:MANY GRAM POSITIVE COCCI:RARE SQUAMOUS EPI CELL:RARE PMN (WBCs):FEW Unless otherwise specified, Testing Performed by: [address] [address] For Inquires, the Physician may contact the Microbiology department at [phone] ANAEROBIC-AEROBIC CULTURE Final Final MIXED AEROBIC DEREJE on 10/25/19 at 1443 INCLUDING: MODERATE [PSEUDOMONAS AERUGINOSA] MANY [ENTEROBACTER CLOACAE COMPLEX] MODERATE [STAPHYLOCOCCUS EPIDERMIDIS] MODERATE [CORYNEBACTERIUM AMYCOLATUM] MODERATE ANAEROBIC GRAM NEGATIVE RODS on 10/27/19 at 1213 FINAL ID= [BACTEROIDES OVATUS GROUP] PSEUDOMONAS AERUGINOSA ENTEROBACTER CLOACAE COMPLEX STAPHYLOCOCCUS EPIDERMIDIS CORYNEBACTERIUM AMYCOLATUM UNIDENTIFIED ORGANISM BACTEROIDES OVATUS GROUP ANTIMICROBIAL SUSCEPTIBILITY Final Comment NEG JOSÉ ANTONIO 56 PSEUDOMONAS AERUGINOSA ANTIBIOTIC RESULT INTERPRETATION AMIKACIN <=16 S AZTREONAM <=4 S CEFTAZIDIME 4 S CIPROFLOXACIN <=0.25 S CEFEPIME <=2 S CONTINUED ON NEXT PAGE - RUN DATE: 10/29/19 [facility] LAB *LIVE* PAGE 2 RUN TIME: 1446 Specimen Inquiry SPEC: [id number] PATIENT: PAULINA CRISTINA [id number] (Continued) Procedure Result ANTIMICROBIAL SUSCEPTIBILITY Final (continued) CEFTAZIDIME/AVIBACTAM <=4 S GENTAMICIN <=2 S LEVOFLOXACIN <=0.5 S MEROPENEM <=1 S PIPERACILLIN/TAZOBACTAM <=8 S TOBRAMYCIN <=2 S Unless otherwise specified, Testing Performed by: [address] [address] For Inquires, the Physician may contact the Microbiology department at [phone] Objective: Assessment: Left leg cellulitis Left leg wound + PSA, Enterobacter cloacae, Staph epi, corynebacterum, bacteroides and unidentified organism Super morbid obesity. Lymphedema. Hypothyroidism. Hyperlipidemia. Plan: Plan of Care Continue meropenem ( 10/26) Continue probiotics Nystatin powder to affected areas Pain management per primary Discussed with micro lab, culture report is final as above Awaiting surgery later today Supportive care d/w AMAURY FLORES MD Oct 30, 2019 09:34
--- NOTE | 2019-10-30 09:53 | NUR ---
SW following. Discussed with RN, pt having surgery today - likely will have a wound vac placed. Plan is for [facility] at discharge. SW will continue to follow.
--- NOTE | 2019-10-30 10:18 | PDOC ---
Date of Service: DATE: 10/30/19 TIME: 10:15 Subjective: Subjective: On the phone again - says she's doing good. Objective: Objective: 2 stools charted. Vital Signs: Vital Signs Date Time Temp Pulse Resp B/P (MAP) Pulse Ox O2 Delivery O2 Flow Rate FiO2 10/30/19 08:00 Room Air 10/30/19 07:43 97.9 74 18 116/64 (43) 96 97.9 Labs: ORDERED: ANNITA/USHA/RG COMMENTS: LEG WOUND Procedure Result GRAM STAIN Final Final GRAM NEGATIVE RODS:MANY GRAM POSITIVE COCCI:RARE SQUAMOUS EPI CELL:RARE PMN (WBCs):FEW Unless otherwise specified, Testing Performed by: [address] [address] For Inquires, the Physician may contact the Microbiology department at [phone] ANAEROBIC-AEROBIC CULTURE Final Final MIXED AEROBIC DEREJE on 10/25/19 at 3788 INCLUDING: MODERATE [PSEUDOMONAS AERUGINOSA] MANY [ENTEROBACTER CLOACAE COMPLEX] MODERATE [STAPHYLOCOCCUS EPIDERMIDIS] MODERATE [CORYNEBACTERIUM AMYCOLATUM] MODERATE ANAEROBIC GRAM NEGATIVE RODS on 10/27/19 at 1717 FINAL ID= [BACTEROIDES OVATUS GROUP] PSEUDOMONAS AERUGINOSA ENTEROBACTER CLOACAE COMPLEX STAPHYLOCOCCUS EPIDERMIDIS CORYNEBACTERIUM AMYCOLATUM UNIDENTIFIED ORGANISM BACTEROIDES OVATUS GROUP ANTIMICROBIAL SUSCEPTIBILITY Final Comment NEG JOSÉ ANTONIO 56 PSEUDOMONAS AERUGINOSA ANTIBIOTIC RESULT INTERPRETATION AMIKACIN <=16 S AZTREONAM <=4 S CEFTAZIDIME 4 S CIPROFLOXACIN <=0.25 S CEFEPIME <=2 S ANTIMICROBIAL SUSCEPTIBILITY Final (continued) CEFTAZIDIME/AVIBACTAM <=4 S GENTAMICIN <=2 S LEVOFLOXACIN <=0.5 S MEROPENEM <=1 S PIPERACILLIN/TAZOBACTAM <=8 S TOBRAMYCIN <=2 S Unless otherwise specified, Testing Performed by: [address] [address] For Inquires, the Physician may contact the Microbiology department at [phone] PE: GEN: NAD, on phone HEART: RRR ABD: obese EXTREMITY: cellulitis, lymphedema NEURO/PSYCH: A & O 3 A/P: LLE cellulitis -to OR today for debridement/washout Anemia - on iron and B12 replacement BMI 73 R/o COVID -- Continue same per GI. Justicifation of Admission Dx: Justifications for Admission: Justification of Admission Dx: Yes Cellulitis: Cellulitis MALCOM MCKINNEY Oct 30, 2019 10:18
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
[2019-10-30] MEDS: DOXYCYCLINE HYCLATE 100 MG in IV DEXTROSE 5% 100ML 100 ML IV SCH ×2 (11:36→20:43)
[2019-10-30] MEDS ORDERED: ONDANSETRON PF 4 MG/2 ML VIAL. ONE (13:04)
[2019-10-30] MEDS ORDERED: LIDOCAINE 2% PF 5 ML VIAL. ONE (13:04)
[2019-10-30] MEDS ORDERED: PROPOFOL 10 MG/ML (20ML) VIAL. IV ONE (13:04)
[2019-10-30] MEDS ORDERED: ROCURONIUM 50 MG/5 ML VIAL. ONE (13:04)
[2019-10-30] MEDS ORDERED: DEXAMETHASONE SOD PHOS 20 MG/5 ML VIAL. ONE (13:04)
[2019-10-30] MEDS ORDERED: BUPIVACAINE-EPI 0.25%-1:200000 MPF 30 ML VIAL. ONE (13:25)
[2019-10-30] MEDS ORDERED: SUCCINYLCHOLINE 200 MG/10 ML VIAL. ONE (13:31)
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
--- NOTE | 2019-10-30 14:40 | NUR ---
Wound/Ostomy Care Wound Type/Assessment: left leg cellulits, hematoma. Assisted with Vac placement in OR. Treatment Recommendations/Plan: Wound pictured and measured. Skin prep to periwound, 3 black foams to wound bed, veraflo wound vac setting at -75mmhg instill 75cc of saline every 2 hours for 5 mins. Discharge Recommendations for dressings: will follow up on Tue for vac change. Addendum: 10/30/19 at 1557 by CAMMY WING RN Wound vac re-assessed in PACU, wound vac setting increased to -100mmhg.
[2019-10-30] MEDS ORDERED: fentaNYL PF VIAL 100 MCG/2 ML VIAL IV PRN (15:00)
[2019-10-30] MEDS ORDERED: fentaNYL PF VIAL 100 MCG/2 ML VIAL ONE (15:08)
[2019-10-30] MEDS ORDERED: MORPHINE SULFATE 2 MG/ML VIAL. ONE (15:15)
[2019-10-30] MEDS ORDERED: HYDROmorphone 2 MG/ML VIAL ONE (15:31)
[2019-10-30] MEDS ORDERED: PROCHLORPERAZINE 10 MG/2 ML VIAL. ONE (15:32)
[2019-10-30] MEDS: fentaNYL PF VIAL 100 MCG/2 ML VIAL IV PRN ×2 (15:38→15:57)
[2019-10-30] MEDS: MORPHINE SULFATE 2 MG/ML VIAL. IV PRN ×2 (15:39→15:58)
[2019-10-30] MEDS: HYDROmorphone 2 MG/ML VIAL IV PRN ×3 (15:40→20:43)
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
[2019-10-30] MEDS: ATORVASTATIN CALCIUM 40 MG TABLET. PO SCH (20:43)
[2019-10-30 22:38] LABS: BASO % 1 % (0-3); EOS % 0 % (0-3); HEMATOCRIT 27.3 % (36.0-47.0); HEMOGLOBIN 8.8 g/dL (12.0-15.5); LYMPH # 0.6 x10^3/uL (1.0-4.8); LYMPH % 8 % (24-48); MEAN CORPUSCULAR HEMOGLOBIN 28 pg (25-35); MEAN CORPUSCULAR HGB CONC 32 g/dL (31-37); MEAN CORPUSCULAR VOLUME 85 fL (79-100); MONO # 0.1 x10^3/uL (0.0-1.1); MONO % 2 % (0-9); NEUT # 6.8 x10^3/uL (1.8-7.7); NEUT % 90 % (31-73); PLATELET COUNT 354 x10^3/uL (140-400); RED CELL DISTRIBUTION WIDTH 17.1 % (11.5-14.5); WHITE BLOOD COUNT 7.5 x10^3/uL (4.0-11.0)
[2019-10-30 22:51] LABS: ALBUMIN 2.3 g/dL (3.4-5.0); ALBUMIN/GLOBULIN RATIO 0.6 (1.0-1.7); CALCIUM 8.3 mg/dL (8.5-10.1); CREATININE 0.8 mg/dL (0.6-1.0); GFR 75.6; POTASSIUM 4.6 mmol/L (3.5-5.1); TOTAL BILIRUBIN 0.4 mg/dL (0.2-1.0); TOTAL PROTEIN 6.2 g/dL (6.4-8.2)
--- NOTE | 2019-10-30 22:58 | RAD ---
Exam: Chest one view INDICATION: PICC placement TECHNIQUE: Frontal view of the chest Comparisons: None FINDINGS: Right-sided PICC with tip in the SVC. Heart is mildly enlarged. Pulmonary vessels are within normal limits. The lung and pleural spaces are clear. IMPRESSION: Right-sided PICC in appropriate position. Electronically signed by: Dorothea Vides MD (10/30/2019 10:55 PM) [id number]
[2019-10-30 23:05] LABS: % LYMPHS 10 % (24-48); % MONOS 4 % (0-10); % SEGS 86 % (35-66); ANISOCYTOSIS SLIGHT; HYPOCHROMIA SLIGHT; PLT ESTIMATE ADEQUATE (ADEQUATE); POLYCHROMASIA SLIGHT
[2019-10-31] MEDS: HYDROmorphone 2 MG/ML VIAL IV PRN ×3 (01:25→22:17)
[2019-10-31 03:00] VITALS: BP 118/55
[2019-10-31 05:33] LABS: CALCIUM 8.3 mg/dL (8.5-10.1); CREATININE 0.8 mg/dL (0.6-1.0); GFR 75.6; POTASSIUM 4.4 mmol/L (3.5-5.1)
[2019-10-31 05:39] LABS: BASO % 0 % (0-3); EOS % 0 % (0-3); HEMATOCRIT 24.3 % (36.0-47.0); HEMOGLOBIN 7.8 g/dL (12.0-15.5); LYMPH # 0.8 x10^3/uL (1.0-4.8); LYMPH % 10 % (24-48); MEAN CORPUSCULAR HEMOGLOBIN 27 pg (25-35); MEAN CORPUSCULAR HGB CONC 32 g/dL (31-37); MEAN CORPUSCULAR VOLUME 85 fL (79-100); MONO # 0.4 x10^3/uL (0.0-1.1); MONO % 4 % (0-9); NEUT % 85 % (31-73); PLATELET COUNT 384 x10^3/uL (140-400); RED BLOOD COUNT 2.86 x10^6/uL (3.50-5.40); RED CELL DISTRIBUTION WIDTH 16.8 % (11.5-14.5); WHITE BLOOD COUNT 8.2 x10^3/uL (4.0-11.0)
[2019-10-31] MEDS: MEROPENEM 500 MG in IV NORMAL SALINE 50ML 50 ML IV SCH ×3 (05:54→17:18)
[2019-10-31] MEDS: HYDROcodone/APAP 7.5/325MG 1 TAB TABLET PO PRN ×3 (05:55→19:04)
[2019-10-31 07:00] VITALS: BP 126/55
[2019-10-31] MEDS: LACTOBACILLUS RHAMNOSUS GG 1 CAPSULE. PO SCH ×2 (09:30→20:23)
[2019-10-31] MEDS: FERROUS SULFATE 325 MG TABLET. PO SCH (09:31)
[2019-10-31] MEDS: CYANOCOBALAMIN (VITAMIN B-12) 1,000 MCG/ML VIAL IM SCH (09:31)
[2019-10-31] MEDS: FOLIC ACID 1 MG TABLET. PO SCH (09:31)
[2019-10-31] MEDS: PANTOPRAZOLE 40 MG TABLET.DR. PO SCH (09:31)
[2019-10-31] MEDS: GABAPENTIN 100 MG CAPSULE. PO SCH ×3 (09:31→20:23)
[2019-10-31] MEDS: NYSTATIN TOPICAL POWDER 15GM BOTTLE. TP SCH ×2 (09:32→20:28)
--- NOTE | 2019-10-31 09:33 | PDOC ---
Infectious Disease Note Subjective: Subjective Pt says feels better Postop site pain is under control this morning Denies F/C/N/V/D/SOA/cough/rash Vital Signs: Vital Signs Vital Signs Date Time Temp Pulse Resp B/P (MAP) Pulse Ox O2 Delivery O2 Flow Rate FiO2 10/31/19 08:01 Room Air 10/31/19 07:00 97.4 81 16 126/55 (78) 95 97.4 10/30/19 16:31 2 Physical Exam: PHYSICAL EXAM GENERAL: Propped up in bed, alert, in NAD HEENT: Oral cavity pink, moist. No thrush NECK: Supple, no JVP, no lymphadenopathy. LUNGS: Clear. HEART: S1, S2 regular. ABDOMEN: Obese, BS present, soft, nontender : No Sagastume EXTREMITIES: Wound on the left lateral leg is bandaged. Not taken down at this time The patient has massive legs with even the pannus is on the knee or the thigh. The right forearm area is very well healed. NEUROLOGIC: Alert, awake and appropriate. No focal neurologic deficit. PIV Medications: Inpatient Meds: Current Medications Medications (Trade) Dose Ordered Sig/Madeline Start Time Stop Time Status Last Admin Dose Admin Acetaminophen (Tylenol) 650 mg PRN Q4HRS PRN 10/23/19 17:30 10/27/19 21:10 650 MG Acetaminophen/ Hydrocodone Bitart (Lortab 5/325) 1 tab PRN Q6HRS PRN 10/23/19 18:45 10/23/19 22:57 DC 10/23/19 19:22 1 TAB Acetaminophen/ Hydrocodone Bitart (Lortab 7.5/325) 1 tab PRN Q4HRS PRN 10/24/19 11:45 10/31/19 05:55 1 TAB Atorvastatin Calcium (Lipitor) 80 mg QHS 10/23/19 23:00 10/30/19 20:43 80 MG Bisacodyl (Dulcolax Tab) 5 mg PRN DAILY PRN 10/24/19 12:45 Bupivacaine HCl/ Epinephrine Bitart (Sensorcaine-Epi 0.25%-1:[id number] Mpf) 30 ml STK-MED ONCE 10/30/19 13:25 10/30/19 13:26 DC Cefazolin Sodium/ Dextrose 50 ml @ 100 mls/hr Q8HRS 10/23/19 22:00 10/24/19 08:50 DC 10/24/19 05:41 100 MLS/HR Cyanocobalamin (Vitamin B-12) 1,000 mcg DAILY08 10/24/19 17:15 10/30/19 08:09 1,000 MCG Dexamethasone Sodium Phosphate (Decadron) 20 mg STK-MED ONCE 10/30/19 13:04 10/30/19 13:04 DC Diphenhydramine HCl (Benadryl) 25 mg PRN Q6HRS PRN 10/27/19 23:45 10/27/19 23:50 25 MG Docusate Sodium (Colace) 100 mg PRN BID PRN 10/23/19 17:30 Doxycycline Hyclate 100 mg/ Dextrose 100 ml @ 50 mls/hr Q12HR 10/30/19 11:00 10/30/19 20:43 50 MLS/HR Enoxaparin Sodium (Lovenox 60mg Syringe) 60 mg Q12HR 10/23/19 21:00 10/29/19 23:00 DC 10/29/19 20:59 60 MG Fentanyl Citrate (Fentanyl 2ml Vial) 100 mcg STK-MED ONCE 10/30/19 15:08 10/30/19 15:08 DC Ferrous Sulfate (Feosol) 325 mg DAILYWBKFT 10/24/19 13:00 10/29/19 09:56 325 MG Folic Acid (Folic Acid) 1 mg DAILY 10/25/19 09:00 10/29/19 09:56 1 MG Gabapentin (Neurontin) 100 mg TID 10/23/19 21:00 10/30/19 20:43 100 MG Hydromorphone HCl (Dilaudid) 1 mg PRN Q4HRS PRN 10/30/19 16:15 10/31/19 01:25 1 MG Iohexol (Omnipaque 300 Mg/ml) 75 ml 1X ONCE 10/25/19 09:30 10/25/19 09:31 DC 10/25/19 09:30 75 ML Lactobacillus Rhamnosus (Culturelle) 1 cap BID 10/24/19 13:00 10/30/19 20:43 1 CAP Lidocaine HCl (Lidocaine Pf 2% Vial) 5 ml STK-MED ONCE 10/30/19 13:04 10/30/19 13:04 DC Meropenem 500 mg/ Sodium Chloride 50 ml @ 100 mls/hr Q6HRS 10/27/19 12:00 10/31/19 05:54 100 MLS/HR Morphine Sulfate (Morphine Sulfate) 2 mg STK-MED ONCE 10/30/19 15:15 10/30/19 15:15 DC Nystatin (Nystop) 1 aren BID 10/23/19 21:00 10/30/19 20:44 1 AREN Ondansetron HCl (Zofran) 4 mg STK-MED ONCE 10/30/19 13:04 10/30/19 13:04 DC Pantoprazole Sodium (Protonix) 40 mg DAILYAC 10/24/19 13:00 10/29/19 07:41 40 MG Piperacillin Sod/ Tazobactam Sod 4.5 gm/Sodium Chloride 100 ml @ 200 mls/hr Q6HRS 10/24/19 12:00 10/27/19 10:08 DC 10/27/19 06:16 200 MLS/HR Polyethylene Glycol (miraLAX PACKET) 17 gm PRN DAILY PRN 10/24/19 12:45 Prochlorperazine Edisylate (Compazine) 10 mg STK-MED ONCE 10/30/19 15:32 10/30/19 15:32 DC Propofol (Diprivan) 200 mg STK-MED ONCE 10/30/19 13:04 10/30/19 13:04 DC Ringer's Solution 1,000 ml @ 30 mls/hr Q24H 10/30/19 14:59 10/31/19 02:58 DC Rocuronium [place] (Zemuron) 50 mg STK-MED ONCE 10/30/19 13:04 10/30/19 13:05 DC Succinylcholine Chloride (Anectine) 200 mg STK-MED ONCE 10/30/19 13:31 10/30/19 13:31 DC Vancomycin HCl (Vanco Per Pharmacy) 1 each PRN DAILY PRN 10/23/19 17:30 10/26/19 09:43 DC 10/24/19 21:24 1 EACH Vancomycin HCl (Vancomycin Trough Level) 1 each 1X ONCE 10/24/19 19:30 10/24/19 19:31 DC 10/24/19 20:30 1 EACH Vancomycin HCl 1.5 gm/Sodium Chloride 500 ml @ 250 mls/hr Q8H 10/24/19 04:00 10/26/19 09:38 DC 10/26/19 04:10 250 MLS/HR Vancomycin HCl 2 gm/Sodium Chloride 500 ml @ 250 mls/hr 1X ONCE 10/23/19 18:30 10/23/19 20:29 DC 10/23/19 20:05 250 MLS/HR Labs: Lab Laboratory Tests Test 10/30/19 10:23 10/30/19 22:25 10/31/19 05:10 SARS-CoV-2 Antigen (Rapid) Negative (NEGATIVE) White Blood Count 7.5 x10^3/uL (4.0-11.0) 8.2 x10^3/uL (4.0-11.0) Red Blood Count 3.20 x10^6/uL (3.50-5.40) 2.86 x10^6/uL (3.50-5.40) Hemoglobin 8.8 g/dL (12.0-15.5) 7.8 g/dL (12.0-15.5) Hematocrit 27.3 % (36.0-47.0) 24.3 % (36.0-47.0) Mean Corpuscular Volume 85 fL (79-100) 85 fL (79-100) Mean Corpuscular Hemoglobin 28 pg (25-35) 27 pg (25-35) Mean Corpuscular Hemoglobin Concent 32 g/dL (31-37) 32 g/dL (31-37) Red Cell Distribution Width 17.1 % (11.5-14.5) 16.8 % (11.5-14.5) Platelet Count 354 x10^3/uL (140-400) 384 x10^3/uL (140-400) Neutrophils (%) (Auto) 90 % (31-73) 85 % (31-73) Lymphocytes (%) (Auto) 8 % (24-48) 10 % (24-48) Monocytes (%) (Auto) 2 % (0-9) 4 % (0-9) Eosinophils (%) (Auto) 0 % (0-3) 0 % (0-3) Basophils (%) (Auto) 1 % (0-3) 0 % (0-3) Neutrophils # (Auto) 6.8 x10^3/uL (1.8-7.7) 7.0 x10^3/uL (1.8-7.7) Lymphocytes # (Auto) 0.6 x10^3/uL (1.0-4.8) 0.8 x10^3/uL (1.0-4.8) Monocytes # (Auto) 0.1 x10^3/uL (0.0-1.1) 0.4 x10^3/uL (0.0-1.1) Eosinophils # (Auto) 0.0 x10^3/uL (0.0-0.7) 0.0 x10^3/uL (0.0-0.7) Basophils # (Auto) 0.0 x10^3/uL (0.0-0.2) 0.0 x10^3/uL (0.0-0.2) Segmented Neutrophils % 86 % (35-66) Lymphocytes % 10 % (24-48) Monocytes % 4 % (0-10) Platelet Estimate Adequate (ADEQUATE) Polychromasia Slight Hypochromasia Slight Anisocytosis Slight Sodium Level 138 mmol/L (136-145) 140 mmol/L (136-145) Potassium Level 4.6 mmol/L (3.5-5.1) 4.4 mmol/L (3.5-5.1) Chloride Level 103 mmol/L (98-107) 104 mmol/L (98-107) Carbon Dioxide Level 31 mmol/L (21-32) 30 mmol/L (21-32) Anion Gap 4 (6-14) 6 (6-14) Blood Urea Nitrogen 8 mg/dL (7-20) 9 mg/dL (7-20) Creatinine 0.8 mg/dL (0.6-1.0) 0.8 mg/dL (0.6-1.0) Estimated GFR (Cockcroft-Gault) 75.6 75.6 BUN/Creatinine Ratio 10 (6-20) Glucose Level 147 mg/dL (70-99) 146 mg/dL (70-99) Calcium Level 8.3 mg/dL (8.5-10.1) 8.3 mg/dL (8.5-10.1) Total Bilirubin 0.4 mg/dL (0.2-1.0) Aspartate Amino Transf (AST/SGOT) 25 U/L (15-37) Alanine Aminotransferase (ALT/SGPT) 19 U/L (14-59) Alkaline Phosphatase 95 U/L (46-116) Total Protein 6.2 g/dL (6.4-8.2) Albumin 2.3 g/dL (3.4-5.0) Albumin/Globulin Ratio 0.6 (1.0-1.7) Micro RUN DATE: 10/29/19 [facility] LAB *LIVE* PAGE 1 RUN TIME: 1447 Specimen Inquiry PATIENT: PAULINA CRISTINA ACCT: [id number] LOC: [address] [place] [address] U: [id number] AGE/SX: 53/F ROOM: 438 RE10/23/[address]: ROSLYN CARLOS MD : [id number] BED: 1 DIS: STATUS: ADM IN TLOC: SPEC #: [id number] MABLE: 10/23/19 STATUS: CLAUDIA REQ #: [id number] RECD: 10/23/[address] [facility] [address]: ROSLYN CARLOS MD SOURCE: ABSCESS ENTR: 10/23/[address] [facility] [address]: LEV JASMINE MD [facility]: MARITA JJ MD ORDERED: ANAER/AEROB/GS COMMENTS: LEG WOUND Procedure Result GRAM STAIN Final Final GRAM NEGATIVE RODS:MANY GRAM POSITIVE COCCI:RARE SQUAMOUS EPI CELL:RARE PMN (WBCs):FEW Unless otherwise specified, Testing Performed by: [place] [address] For Inquires, the Physician may contact the Microbiology department at [phone] ANAEROBIC-AEROBIC CULTURE Final Final MIXED AEROBIC DEREJE on 10/25/19 at 1443 INCLUDING: MODERATE [PSEUDOMONAS AERUGINOSA] MANY [ENTEROBACTER CLOACAE COMPLEX] MODERATE [STAPHYLOCOCCUS EPIDERMIDIS] MODERATE [CORYNEBACTERIUM AMYCOLATUM] MODERATE ANAEROBIC GRAM NEGATIVE RODS on 10/27/19 at 1213 FINAL ID= [BACTEROIDES OVATUS GROUP] PSEUDOMONAS AERUGINOSA ENTEROBACTER CLOACAE COMPLEX STAPHYLOCOCCUS EPIDERMIDIS CORYNEBACTERIUM AMYCOLATUM UNIDENTIFIED ORGANISM BACTEROIDES OVATUS GROUP ANTIMICROBIAL SUSCEPTIBILITY Final Comment NEG JOSÉ ANTONIO 56 PSEUDOMONAS AERUGINOSA ANTIBIOTIC RESULT INTERPRETATION AMIKACIN <=16 S AZTREONAM <=4 S CEFTAZIDIME 4 S CIPROFLOXACIN <=0.25 S CEFEPIME <=2 S CONTINUED ON NEXT PAGE RUN DATE: 10/29/19 [facility] *LIVE* PAGE 2 RUN TIME: 1447 Specimen Inquiry SPEC: [id number] PATIENT: PAULINA CRISTINA [id number] (Continued) --- --------- Procedure Result ANTIMICROBIAL SUSCEPTIBILITY Final (continued) CEFTAZIDIME/AVIBACTAM <=4 S GENTAMICIN <=2 S LEVOFLOXACIN <=0.5 S MEROPENEM <=1 S PIPERACILLIN/TAZOBACTAM <=8 S TOBRAMYCIN <=2 S Unless otherwise specified, Testing Performed by: [facility] [address] [place] [address] For Inquires, the Physician may contact the Microbiology department at [phone] Objective: Assessment: Left leg wound + PSA, Enterobacter cloacae, Staph epi, corynebacterum, bacteroides and unidentified organism Status post incision and debridement with placement of wound VAC October 30, 2019 Left leg cellulitis improving Super morbid obesity. Lymphedema. Hypothyroidism. Hyperlipidemia. Plan: Plan of Care Continue meropenem ( 10/26) Continue probiotics Nystatin powder to affected areas Pain management per primary Discussed with micro lab, culture report is final as above Wound /VAC care as direct Supportive care d/w AMAURY FLORES MD Oct 31, 2019 09:33
[2019-10-31] MEDS: DOXYCYCLINE HYCLATE 100 MG in IV DEXTROSE 5% 100ML 100 ML IV SCH ×2 (09:38→20:23)
--- NOTE | 2019-10-31 10:14 | NUR ---
SW following. Discussed with RN, pt from home, pt had surgery 10/29. PT/OT to work with pt today. Previously recommending home health, will wait to determine if recommendation is the same. Pt on IV abx, cultures pending. [facility] will continue to follow. Addendum: 10/31/19 at 1326 by ELTON VERMA Pt wanting to go to [facility]. PT now recommending SNU, wound vac, IV abx. [facility] faxed referral to [facility] (delonte OT note). [facility] will continue to follow.
--- NOTE | 2019-10-31 10:17 | PDOC ---
Date of Service: DATE: 10/31/19 TIME: 10:15 Subjective: Subjective: No GI complaints. Objective: Vital Signs: Vital Signs Date Time Temp Pulse Resp B/P (MAP) Pulse Ox O2 Delivery O2 Flow Rate FiO2 10/31/19 08:01 Room Air 10/31/19 07:00 97.4 81 16 126/55 (78) 95 97.4 10/30/19 16:31 2 Labs: Laboratory Tests Test 10/30/19 10:23 10/30/19 22:25 10/31/19 05:10 SARS-CoV-2 Antigen (Rapid) Negative White Blood Count 7.5 x10^3/uL 8.2 x10^3/uL Red Blood Count 3.20 x10^6/uL 2.86 x10^6/uL Hemoglobin 8.8 g/dL 7.8 g/dL Hematocrit 27.3 % 24.3 % Mean Corpuscular Volume 85 fL 85 fL Mean Corpuscular Hemoglobin 28 pg 27 pg Mean Corpuscular Hemoglobin Concent 32 g/dL 32 g/dL Red Cell Distribution Width 17.1 % 16.8 % Platelet Count 354 x10^3/uL 384 x10^3/uL Neutrophils (%) (Auto) 90 % 85 % Lymphocytes (%) (Auto) 8 % 10 % Monocytes (%) (Auto) 2 % 4 % Eosinophils (%) (Auto) 0 % 0 % Basophils (%) (Auto) 1 % 0 % Neutrophils # (Auto) 6.8 x10^3/uL 7.0 x10^3/uL Lymphocytes # (Auto) 0.6 x10^3/uL 0.8 x10^3/uL Monocytes # (Auto) 0.1 x10^3/uL 0.4 x10^3/uL Eosinophils # (Auto) 0.0 x10^3/uL 0.0 x10^3/uL Basophils # (Auto) 0.0 x10^3/uL 0.0 x10^3/uL Segmented Neutrophils % 86 % Lymphocytes % 10 % Monocytes % 4 % Platelet Estimate Adequate Polychromasia Slight Hypochromasia Slight Anisocytosis Slight Sodium Level 138 mmol/L 140 mmol/L Potassium Level 4.6 mmol/L 4.4 mmol/L Chloride Level 103 mmol/L 104 mmol/L Carbon Dioxide Level 31 mmol/L 30 mmol/L Anion Gap 4 6 Blood Urea Nitrogen 8 mg/dL 9 mg/dL Creatinine 0.8 mg/dL 0.8 mg/dL Estimated GFR (Cockcroft-Gault) 75.6 75.6 BUN/Creatinine Ratio 10 Glucose Level 147 mg/dL 146 mg/dL Calcium Level 8.3 mg/dL 8.3 mg/dL Total Bilirubin 0.4 mg/dL Aspartate Amino Transf (AST/SGOT) 25 U/L Alanine Aminotransferase (ALT/SGPT) 19 U/L Alkaline Phosphatase 95 U/L Total Protein 6.2 g/dL Albumin 2.3 g/dL Albumin/Globulin Ratio 0.6 Imaging: CXR 10/29 IMPRESSION: Right-sided PICC in appropriate position. PE: GEN: NAD LUNGS: CTAB HEART: RRR ABD: obese NEURO/PSYCH: A & O 3 A/P: S/p LLE wound debridement w/ placement of wound VAC 10/30/19 Anemia - on iron and B12 replacement BMI 73 -- Continue same per GI. Justicifation of Admission Dx: Justifications for Admission: Justification of Admission Dx: Yes Cellulitis: Cellulitis MALCOM MCKINNEY Oct 31, 2019 10:17
[2019-10-31 11:00] VITALS: BP 127/52
--- NOTE | 2019-10-31 12:14 | NUR ---
WV cannister full with 500cc fluid, Cannister changed. STEPAN Jaimes WCN at bedside.
--- NOTE | 2019-10-31 13:20 | PDOC ---
SURGICAL PROGRESS NOTE DATE: 10/31/19 TIME: 13:19 Subjective Patient doing well this morning pain better control of them from last night. Vital Signs Vital Signs Date Time Temp Pulse Resp B/P (MAP) Pulse Ox O2 Delivery O2 Flow Rate FiO2 10/31/19 13:11 Room Air 10/31/19 11:00 98.1 81 16 127/52 (77) 94 98.1 10/30/19 16:31 2 I&O Intake and Output 10/31/19 07:00 Intake Total 1590 ml Output Total 376 ml Balance 1214 ml Intake Oral 440 ml IV Total 1150 ml Output Urine Total 300 ml Urine/Stool Mix 1 ml Estimated Blood Loss 75 ml PATIENT HAS A HERNANDEZ: No General: Alert, Oriented X3, Cooperative, mild distress Extremities: Other (Wound VAC in place left lower extremity minimal blood loss) Labs Laboratory Tests Test 10/30/19 10:23 10/30/19 22:25 10/31/19 05:10 SARS-CoV-2 Antigen (Rapid) Negative (NEGATIVE) White Blood Count 7.5 x10^3/uL (4.0-11.0) 8.2 x10^3/uL (4.0-11.0) Red Blood Count 3.20 x10^6/uL (3.50-5.40) 2.86 x10^6/uL (3.50-5.40) Hemoglobin 8.8 g/dL (12.0-15.5) 7.8 g/dL (12.0-15.5) Hematocrit 27.3 % (36.0-47.0) 24.3 % (36.0-47.0) Mean Corpuscular Volume 85 fL (79-100) 85 fL (79-100) Mean Corpuscular Hemoglobin 28 pg (25-35) 27 pg (25-35) Mean Corpuscular Hemoglobin Concent 32 g/dL (31-37) 32 g/dL (31-37) Red Cell Distribution Width 17.1 % (11.5-14.5) 16.8 % (11.5-14.5) Platelet Count 354 x10^3/uL (140-400) 384 x10^3/uL (140-400) Neutrophils (%) (Auto) 90 % (31-73) 85 % (31-73) Lymphocytes (%) (Auto) 8 % (24-48) 10 % (24-48) Monocytes (%) (Auto) 2 % (0-9) 4 % (0-9) Eosinophils (%) (Auto) 0 % (0-3) 0 % (0-3) Basophils (%) (Auto) 1 % (0-3) 0 % (0-3) Neutrophils # (Auto) 6.8 x10^3/uL (1.8-7.7) 7.0 x10^3/uL (1.8-7.7) Lymphocytes # (Auto) 0.6 x10^3/uL (1.0-4.8) 0.8 x10^3/uL (1.0-4.8) Monocytes # (Auto) 0.1 x10^3/uL (0.0-1.1) 0.4 x10^3/uL (0.0-1.1) Eosinophils # (Auto) 0.0 x10^3/uL (0.0-0.7) 0.0 x10^3/uL (0.0-0.7) Basophils # (Auto) 0.0 x10^3/uL (0.0-0.2) 0.0 x10^3/uL (0.0-0.2) Segmented Neutrophils % 86 % (35-66) Lymphocytes % 10 % (24-48) Monocytes % 4 % (0-10) Platelet Estimate Adequate (ADEQUATE) Polychromasia Slight Hypochromasia Slight Anisocytosis Slight Sodium Level 138 mmol/L (136-145) 140 mmol/L (136-145) Potassium Level 4.6 mmol/L (3.5-5.1) 4.4 mmol/L (3.5-5.1) Chloride Level 103 mmol/L (98-107) 104 mmol/L (98-107) Carbon Dioxide Level 31 mmol/L (21-32) 30 mmol/L (21-32) Anion Gap 4 (6-14) 6 (6-14) Blood Urea Nitrogen 8 mg/dL (7-20) 9 mg/dL (7-20) Creatinine 0.8 mg/dL (0.6-1.0) 0.8 mg/dL (0.6-1.0) Estimated GFR (Cockcroft-Gault) 75.6 75.6 BUN/Creatinine Ratio 10 (6-20) Glucose Level 147 mg/dL (70-99) 146 mg/dL (70-99) Calcium Level 8.3 mg/dL (8.5-10.1) 8.3 mg/dL (8.5-10.1) Total Bilirubin 0.4 mg/dL (0.2-1.0) Aspartate Amino Transf (AST/SGOT) 25 U/L (15-37) Alanine Aminotransferase (ALT/SGPT) 19 U/L (14-59) Alkaline Phosphatase 95 U/L (46-116) Total Protein 6.2 g/dL (6.4-8.2) Albumin 2.3 g/dL (3.4-5.0) Albumin/Globulin Ratio 0.6 (1.0-1.7) Laboratory Tests Test 10/30/19 22:25 10/31/19 05:10 White Blood Count 7.5 x10^3/uL (4.0-11.0) 8.2 x10^3/uL (4.0-11.0) Red Blood Count 3.20 x10^6/uL (3.50-5.40) 2.86 x10^6/uL (3.50-5.40) Hemoglobin 8.8 g/dL (12.0-15.5) 7.8 g/dL (12.0-15.5) Hematocrit 27.3 % (36.0-47.0) 24.3 % (36.0-47.0) Mean Corpuscular Volume 85 fL (79-100) 85 fL (79-100) Mean Corpuscular Hemoglobin 28 pg (25-35) 27 pg (25-35) Mean Corpuscular Hemoglobin Concent 32 g/dL (31-37) 32 g/dL (31-37) Red Cell Distribution Width 17.1 % (11.5-14.5) 16.8 % (11.5-14.5) Platelet Count 354 x10^3/uL (140-400) 384 x10^3/uL (140-400) Neutrophils (%) (Auto) 90 % (31-73) 85 % (31-73) Lymphocytes (%) (Auto) 8 % (24-48) 10 % (24-48) Monocytes (%) (Auto) 2 % (0-9) 4 % (0-9) Eosinophils (%) (Auto) 0 % (0-3) 0 % (0-3) Basophils (%) (Auto) 1 % (0-3) 0 % (0-3) Neutrophils # (Auto) 6.8 x10^3/uL (1.8-7.7) 7.0 x10^3/uL (1.8-7.7) Lymphocytes # (Auto) 0.6 x10^3/uL (1.0-4.8) 0.8 x10^3/uL (1.0-4.8) Monocytes # (Auto) 0.1 x10^3/uL (0.0-1.1) 0.4 x10^3/uL (0.0-1.1) Eosinophils # (Auto) 0.0 x10^3/uL (0.0-0.7) 0.0 x10^3/uL (0.0-0.7) Basophils # (Auto) 0.0 x10^3/uL (0.0-0.2) 0.0 x10^3/uL (0.0-0.2) Segmented Neutrophils % 86 % (35-66) Lymphocytes % 10 % (24-48) Monocytes % 4 % (0-10) Platelet Estimate Adequate (ADEQUATE) Polychromasia Slight Hypochromasia Slight Anisocytosis Slight Sodium Level 138 mmol/L (136-145) 140 mmol/L (136-145) Potassium Level 4.6 mmol/L (3.5-5.1) 4.4 mmol/L (3.5-5.1) Chloride Level 103 mmol/L (98-107) 104 mmol/L (98-107) Carbon Dioxide Level 31 mmol/L (21-32) 30 mmol/L (21-32) Anion Gap 4 (6-14) 6 (6-14) Blood Urea Nitrogen 8 mg/dL (7-20) 9 mg/dL (7-20) Creatinine 0.8 mg/dL (0.6-1.0) 0.8 mg/dL (0.6-1.0) Estimated GFR (Cockcroft-Gault) 75.6 75.6 BUN/Creatinine Ratio 10 (6-20) Glucose Level 147 mg/dL (70-99) 146 mg/dL (70-99) Calcium Level 8.3 mg/dL (8.5-10.1) 8.3 mg/dL (8.5-10.1) Total Bilirubin 0.4 mg/dL (0.2-1.0) Aspartate Amino Transf (AST/SGOT) 25 U/L (15-37) Alanine Aminotransferase (ALT/SGPT) 19 U/L (14-59) Alkaline Phosphatase 95 U/L (46-116) Total Protein 6.2 g/dL (6.4-8.2) Albumin 2.3 g/dL (3.4-5.0) Albumin/Globulin Ratio 0.6 (1.0-1.7) Assessment/Plan Status post debridement of left lower extremity wound VAC placement Continue local wound care Justicifation of Admission Dx: Justifications for Admission: Justification of Admission Dx: Yes Cellulitis: Cellulitis BLAINE MONTIEL MD Oct 31, 2019 13:20
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
--- NOTE | 2019-10-31 13:52 | NUR ---
This SW asked to notarize a limited power of insurance defense attorney. SW spoke with pt who is a/o x4 and able to make needs known. Pt stated she wants to sign the limited POA for HC for her insurance defense attorney Zachary Murray to access her safety deposit box. [facility] notarized document with pt, pt's witness and pt's insurance defense attorney Zachary ([phone]). [facility]RON Sara following this pt.
[2019-10-31 15:09] VITALS: BP 100/51
[2019-10-31 19:00] VITALS: BP 103/55
[2019-10-31] MEDS: ATORVASTATIN CALCIUM 40 MG TABLET. PO SCH (20:24)
[2019-10-31 23:00] VITALS: BP 105/44
[2019-11-01] MEDS: MEROPENEM 500 MG in IV NORMAL SALINE 50ML 50 ML IV SCH ×4 (00:02→17:46)
[2019-11-01 03:00] VITALS: BP 127/64
[2019-11-01] MEDS: PANTOPRAZOLE 40 MG TABLET.DR. PO SCH (04:05)
[2019-11-01] MEDS: HYDROcodone/APAP 7.5/325MG 1 TAB TABLET PO PRN ×4 (04:05→19:14)
[2019-11-01] MEDS: HYDROmorphone 2 MG/ML VIAL IV PRN ×4 (05:52→21:27)
[2019-11-01 07:00] VITALS: BP 135/59
[2019-11-01] MEDS: LACTOBACILLUS RHAMNOSUS GG 1 CAPSULE. PO SCH ×2 (09:19→21:24)
[2019-11-01] MEDS: FOLIC ACID 1 MG TABLET. PO SCH (09:19)
[2019-11-01] MEDS: DOXYCYCLINE HYCLATE 100 MG in IV DEXTROSE 5% 100ML 100 ML IV SCH ×2 (09:19→21:24)
[2019-11-01] MEDS: FERROUS SULFATE 325 MG TABLET. PO SCH (09:19)
[2019-11-01] MEDS: VITAMIN B12,B9,B6 COMPLEX 1 TABLET. PO SCH (09:19)
[2019-11-01] MEDS: GABAPENTIN 100 MG CAPSULE. PO SCH ×3 (09:19→21:25)
[2019-11-01] MEDS: NYSTATIN TOPICAL POWDER 15GM BOTTLE. TP SCH ×2 (09:20→22:07)
--- NOTE | 2019-11-01 09:38 | PDOC ---
[facility] [employer]CH[employer] 11/01/19 0938: SURGICAL PROGRESS NOTE DATE: 11/01/19 TIME: 09:38 Subjective vac is painful on the phone Vital Signs Vital Signs Date Time Temp Pulse Resp B/P (MAP) Pulse Ox O2 Delivery O2 Flow Rate FiO2 11/01/19 09:20 Room Air 11/01/19 07:00 98.4 70 18 135/59 (84) 98 98.4 11/01/19 06:22 2.0 I&O Intake and Output 11/01/19 07:00 Intake Total 940 ml Output Total 401 ml Balance 539 ml Intake Oral 940 ml Output Urine Total 400 ml Urine/Stool Mix 1 ml General: Alert, Oriented X3, Cooperative Extremities: Other (vac in place) Labs Laboratory Tests Test 10/30/19 10:23 10/30/19 22:25 10/31/19 05:10 SARS-CoV-2 Antigen (Rapid) Negative (NEGATIVE) White Blood Count 7.5 x10^3/uL (4.0-11.0) 8.2 x10^3/uL (4.0-11.0) Red Blood Count 3.20 x10^6/uL (3.50-5.40) 2.86 x10^6/uL (3.50-5.40) Hemoglobin 8.8 g/dL (12.0-15.5) 7.8 g/dL (12.0-15.5) Hematocrit 27.3 % (36.0-47.0) 24.3 % (36.0-47.0) Mean Corpuscular Volume 85 fL (79-100) 85 fL (79-100) Mean Corpuscular Hemoglobin 28 pg (25-35) 27 pg (25-35) Mean Corpuscular Hemoglobin Concent 32 g/dL (31-37) 32 g/dL (31-37) Red Cell Distribution Width 17.1 % (11.5-14.5) 16.8 % (11.5-14.5) Platelet Count 354 x10^3/uL (140-400) 384 x10^3/uL (140-400) Neutrophils (%) (Auto) 90 % (31-73) 85 % (31-73) Lymphocytes (%) (Auto) 8 % (24-48) 10 % (24-48) Monocytes (%) (Auto) 2 % (0-9) 4 % (0-9) Eosinophils (%) (Auto) 0 % (0-3) 0 % (0-3) Basophils (%) (Auto) 1 % (0-3) 0 % (0-3) Neutrophils # (Auto) 6.8 x10^3/uL (1.8-7.7) 7.0 x10^3/uL (1.8-7.7) Lymphocytes # (Auto) 0.6 x10^3/uL (1.0-4.8) 0.8 x10^3/uL (1.0-4.8) Monocytes # (Auto) 0.1 x10^3/uL (0.0-1.1) 0.4 x10^3/uL (0.0-1.1) Eosinophils # (Auto) 0.0 x10^3/uL (0.0-0.7) 0.0 x10^3/uL (0.0-0.7) Basophils # (Auto) 0.0 x10^3/uL (0.0-0.2) 0.0 x10^3/uL (0.0-0.2) Segmented Neutrophils % 86 % (35-66) Lymphocytes % 10 % (24-48) Monocytes % 4 % (0-10) Platelet Estimate Adequate (ADEQUATE) Polychromasia Slight Hypochromasia Slight Anisocytosis Slight Sodium Level 138 mmol/L (136-145) 140 mmol/L (136-145) Potassium Level 4.6 mmol/L (3.5-5.1) 4.4 mmol/L (3.5-5.1) Chloride Level 103 mmol/L (98-107) 104 mmol/L (98-107) Carbon Dioxide Level 31 mmol/L (21-32) 30 mmol/L (21-32) Anion Gap 4 (6-14) 6 (6-14) Blood Urea Nitrogen 8 mg/dL (7-20) 9 mg/dL (7-20) Creatinine 0.8 mg/dL (0.6-1.0) 0.8 mg/dL (0.6-1.0) Estimated GFR (Cockcroft-Gault) 75.6 75.6 BUN/Creatinine Ratio 10 (6-20) Glucose Level 147 mg/dL (70-99) 146 mg/dL (70-99) Calcium Level 8.3 mg/dL (8.5-10.1) 8.3 mg/dL (8.5-10.1) Total Bilirubin 0.4 mg/dL (0.2-1.0) Aspartate Amino Transf (AST/SGOT) 25 U/L (15-37) Alanine Aminotransferase (ALT/SGPT) 19 U/L (14-59) Alkaline Phosphatase 95 U/L (46-116) Total Protein 6.2 g/dL (6.4-8.2) Albumin 2.3 g/dL (3.4-5.0) Albumin/Globulin Ratio 0.6 (1.0-1.7) Assessment/Plan continue wound care Justicifation of Admission Dx: Justifications for Admission: Justification of Admission Dx: Yes Cellulitis: Cellulitis BLAINE MONTIEL MD 11/01/19 1739: SURGICAL PROGRESS NOTE Assessment/Plan Agree with Ila's assessment and plan OG ART APRN Nov 01, 2019 09:38 BLAINE MONTIEL MD Nov 01, 2019 17:39
--- NOTE | 2019-11-01 10:07 | NUR ---
SW following. Discussed with RN, [facility] checked with [facility] this morning RE acceptance - [facility] reported they never received the faxed referral. Graciela from [facility] can collect packet, as potential problem with fax machine. Awaiting acceptance decision. [facility] will continue to follow. Addendum: 11/01/19 at 1239 by ELTON VERMA Pt accepted at [facility], pending insurance auth. [facility] will continue to follow. RN notified.
--- NOTE | 2019-11-01 10:25 | PDOC ---
Date of Service: DATE: 11/01/19 TIME: 10:24 Subjective: Subjective: Leg pain. No GI complaints. Many questions about anemia treatment as outpt. Objective: Vital Signs: Vital Signs Date Time Temp Pulse Resp B/P (MAP) Pulse Ox O2 Delivery O2 Flow Rate FiO2 11/01/19 09:20 Room Air 11/01/19 07:00 98.4 70 18 135/59 (84) 98 98.4 11/01/19 06:22 2.0 PE: GEN: NAD LUNGS: CTAB HEART: RRR ABD: obese EXTREM: LLE wound vac NEURO/PSYCH: A & O 3 A/P: S/p LLE wound debridement w/ wound vac Anemia - on iron and B12 replacement BMI 73 -- No labs today, recheck Hgb. Justicifation of Admission Dx: Justifications for Admission: Justification of Admission Dx: Yes Cellulitis: Cellulitis MALCOM MCKINNEY Nov 01, 2019 10:25
[2019-11-01 11:00] VITALS: BP 128/60
--- NOTE | 2019-11-01 11:39 | PDOC ---
Infectious Disease Note Subjective: Subjective Pt continues to have Postop site pain, but is under control this morning Denies F/C/N/V/D/SOA/cough/rash Vital Signs: Vital Signs Vital Signs Date Time Temp Pulse Resp B/P (MAP) Pulse Ox O2 Delivery O2 Flow Rate FiO2 11/01/19 11:00 98.8 78 16 128/60 (82) 96 Room Air 98.8 11/01/19 06:22 2.0 Physical Exam: PHYSICAL EXAM GENERAL: Propped up in bed, alert, in NAD HEENT: Oral cavity pink, moist. No thrush NECK: Supple, no JVP, no lymphadenopathy. LUNGS: Clear. HEART: S1, S2 regular. ABDOMEN: Obese, BS present, soft, nontender : No Sagastume EXTREMITIES: Wound on the left lateral leg is bandaged. Not taken down at this time The patient has massive legs with even the pannus is on the knee or the thigh. The right forearm area is very well healed. NEUROLOGIC: Alert, awake and appropriate. No focal neurologic deficit. PIV Medications: Inpatient Meds: Current Medications Medications (Trade) Dose Ordered Sig/Madeline Start Time Stop Time Status Last Admin Dose Admin Acetaminophen (Tylenol) 650 mg PRN Q4HRS PRN 10/23/19 17:30 10/27/19 21:10 650 MG Acetaminophen/ Hydrocodone Bitart (Lortab 5/325) 1 tab PRN Q6HRS PRN 10/23/19 18:45 10/23/19 22:57 DC 10/23/19 19:22 1 TAB Acetaminophen/ Hydrocodone Bitart (Lortab 7.5/325) 1 tab PRN Q4HRS PRN 10/24/19 11:45 11/01/19 09:20 1 TAB Atorvastatin Calcium (Lipitor) 80 mg QHS 10/23/19 23:00 10/31/19 20:24 80 MG Bisacodyl (Dulcolax Tab) 5 mg PRN DAILY PRN 10/24/19 12:45 Bupivacaine HCl/ Epinephrine Bitart (Sensorcaine-Epi 0.25%-1:568517 Mpf) 30 ml STK-MED ONCE 10/30/19 13:25 10/30/19 13:26 DC Cefazolin Sodium/ Dextrose 50 ml @ 100 mls/hr Q8HRS 10/23/19 22:00 10/24/19 08:50 DC 10/24/19 05:41 100 MLS/HR Cyanocobalamin (Vitamin B-12) 1,000 mcg DAILY08 10/24/19 17:15 10/31/19 13:45 DC 10/31/19 09:31 1,000 MCG Dexamethasone Sodium Phosphate (Decadron) 20 mg STK-MED ONCE 10/30/19 13:04 10/30/19 13:04 DC Diphenhydramine HCl (Benadryl) 25 mg PRN Q6HRS PRN 10/27/19 23:45 10/27/19 23:50 25 MG Docusate Sodium (Colace) 100 mg PRN BID PRN 10/23/19 17:30 Doxycycline Hyclate 100 mg/ Dextrose 100 ml @ 50 mls/hr Q12HR 10/30/19 11:00 11/01/19 09:19 50 MLS/HR Enoxaparin Sodium (Lovenox 60mg Syringe) 60 mg Q12HR 10/23/19 21:00 10/29/19 23:00 DC 10/29/19 20:59 60 MG Fentanyl Citrate (Fentanyl 2ml Vial) 100 mcg STK-MED ONCE 10/30/19 15:08 10/30/19 15:08 DC Ferrous Sulfate (Feosol) 325 mg DAILYWBKFT 10/24/19 13:00 11/01/19 09:19 325 MG Folic Acid (Folic Acid) 1 mg DAILY 10/25/19 09:00 11/01/19 09:19 1 MG Gabapentin (Neurontin) 100 mg TID 10/23/19 21:00 11/01/19 09:19 100 MG Hydromorphone HCl (Dilaudid) 1 mg PRN Q4HRS PRN 10/30/19 16:15 11/01/19 10:46 1 MG Iohexol (Omnipaque 300 Mg/ml) 75 ml 1X ONCE 10/25/19 09:30 10/25/19 09:31 DC 10/25/19 09:30 75 ML Lactobacillus Rhamnosus (Culturelle) 1 cap BID 10/24/19 13:00 11/01/19 09:19 1 CAP Lidocaine HCl (Lidocaine Pf 2% Vial) 5 ml STK-MED ONCE 10/30/19 13:04 10/30/19 13:04 DC Meropenem 500 mg/ Sodium Chloride 50 ml @ 100 mls/hr Q6HRS 10/27/19 12:00 11/01/19 05:39 100 MLS/HR Morphine Sulfate (Morphine Sulfate) 2 mg STK-MED ONCE 10/30/19 15:15 10/30/19 15:15 DC Nystatin (Nystop) 1 aren BID 10/23/19 21:00 11/01/19 09:20 1 AREN Ondansetron HCl (Zofran) 4 mg STK-MED ONCE 10/30/19 13:04 10/30/19 13:04 DC Pantoprazole Sodium (Protonix) 40 mg DAILYAC 10/24/19 13:00 11/01/19 04:05 40 MG Piperacillin Sod/ Tazobactam Sod 4.5 gm/Sodium Chloride 100 ml @ 200 mls/hr Q6HRS 10/24/19 12:00 10/27/19 10:08 DC 10/27/19 06:16 200 MLS/HR Polyethylene Glycol (miraLAX PACKET) 17 gm PRN DAILY PRN 10/24/19 12:45 Prochlorperazine Edisylate (Compazine) 10 mg STK-MED ONCE 10/30/19 15:32 10/30/19 15:32 DC Propofol (Diprivan) 200 mg STK-MED ONCE 10/30/19 13:04 10/30/19 13:04 DC Ringer's Solution 1,000 ml @ 30 mls/hr Q24H 10/30/19 14:59 10/31/19 02:58 DC Rocuronium Walnut (Zemuron) 50 mg STK-MED ONCE 10/30/19 13:04 10/30/19 13:05 DC Succinylcholine Chloride (Anectine) 200 mg STK-MED ONCE 10/30/19 13:31 10/30/19 13:31 DC Vancomycin HCl (Vanco Per Pharmacy) 1 each PRN DAILY PRN 10/23/19 17:30 10/26/19 09:43 DC 10/24/19 21:24 1 EACH Vancomycin HCl (Vancomycin Trough Level) 1 each 1X ONCE 10/24/19 19:30 10/24/19 19:31 DC 10/24/19 20:30 1 EACH Vancomycin HCl 1.5 gm/Sodium Chloride 500 ml @ 250 mls/hr Q8H 10/24/19 04:00 10/26/19 09:38 DC 10/26/19 04:10 250 MLS/HR Vancomycin HCl 2 gm/Sodium Chloride 500 ml @ 250 mls/hr 1X ONCE 10/23/19 18:30 10/23/19 20:29 DC 10/23/19 20:05 250 MLS/HR Vitamin B Complex (Folbic Tablet) 1 tab DAILY 11/01/19 09:00 11/01/19 09:19 1 TAB Labs: Micro RUN DATE: 10/29/19 [facility] *LIVE* PAGE 1 RUN TIME: 1447 Specimen Inquiry PATIENT: PAULINA CRISTINA ACCT: [id number] LOC: [address] [place] [address] U: [id number] AGE/SX: 53/F ROOM: 438 RE10/23/[address]: ROSLYN CARLOS MD : 1965 BED: 1 DIS: STATUS: ADM IN TLOC: SPEC #: [id number] MABLE: 10/23/19 STATUS: [facility] #: [id number] RECD: 10/23/[address] [facility] [address]: ROSLYN CARLOS MD SOURCE: ABSCESS ENTR: 10/23/[address] [facility] [address]: LEV JASMINE MD [facility]: MARITA JJ MD ORDERED: ANAER/AEROB/GS COMMENTS: LEG WOUND Procedure Result - GRAM STAIN Final Final GRAM NEGATIVE RODS:MANY GRAM POSITIVE COCCI:RARE SQUAMOUS EPI CELL:RARE PMN (WBCs):FEW Unless otherwise specified, Testing Performed by: [address] [address] For Inquires, the Physician may contact the Microbiology department at [phone] ANAEROBIC-AEROBIC CULTURE Final Final MIXED AEROBIC DEREJE on 10/25/19 at 144 INCLUDING: MODERATE [PSEUDOMONAS AERUGINOSA] MANY [ENTEROBACTER CLOACAE COMPLEX] MODERATE [STAPHYLOCOCCUS EPIDERMIDIS] MODERATE [CORYNEBACTERIUM AMYCOLATUM] MODERATE ANAEROBIC GRAM NEGATIVE RODS on 10/27/19 at 1213 FINAL ID= [BACTEROIDES OVATUS GROUP] PSEUDOMONAS AERUGINOSA ENTEROBACTER CLOACAE COMPLEX STAPHYLOCOCCUS EPIDERMIDIS CORYNEBACTERIUM AMYCOLATUM UNIDENTIFIED ORGANISM BACTEROIDES OVATUS GROUP ANTIMICROBIAL SUSCEPTIBILITY Final Comment NEG JOSÉ ANTONIO 56 PSEUDOMONAS AERUGINOSA ANTIBIOTIC RESULT INTERPRETATION AMIKACIN <=16 S AZTREONAM <=4 S CEFTAZIDIME 4 S CIPROFLOXACIN <=0.25 S CEFEPIME <=2 S CONTINUED ON NEXT PAGE RUN DATE: 10/29/19 [facility] *LIVE* PAGE 2 RUN TIME: 1447 Specimen Inquiry SPEC: [id number] PATIENT: PAULINA CRISTINA [id number] (Continued) Procedure Result ANTIMICROBIAL SUSCEPTIBILITY Final (continued) CEFTAZIDIME/AVIBACTAM <=4 S GENTAMICIN <=2 S LEVOFLOXACIN <=0.5 S MEROPENEM <=1 S PIPERACILLIN/TAZOBACTAM <=8 S TOBRAMYCIN <=2 S Unless otherwise specified, Testing Performed by: [facility] [address] [place] [address] For Inquires, the Physician may contact the Microbiology department at [phone] Objective: Assessment: Left leg wound + PSA, Enterobacter cloacae, Staph epi, corynebacterum, bacteroides and unidentified organism Status post incision and debridement with placement of wound VAC October 30, 2019 Left leg cellulitis improving Super morbid obesity. Lymphedema. Hypothyroidism. Hyperlipidemia. Plan: Plan of Care Continue meropenem ( 10/26) Continue probiotics Nystatin powder to affected areas Pain management per primary Discussed with micro lab, culture report is final as above Wound /VAC care as directed, plan is to evaluate wound tomorrow before discharge Supportive care d/w AMAURY FLORES MD Nov 01, 2019 11:39
--- NOTE | 2019-11-01 11:39 | NUR ---
Labs drawn from picc line and sent to lab. Mcmanus changed to MAXINE.
[2019-11-01 11:45] LABS: HEMATOCRIT 24.7 % (36.0-47.0); HEMOGLOBIN 7.8 g/dL (12.0-15.5)
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
[2019-11-01 15:00] VITALS: BP 118/45
[2019-11-01 19:00] VITALS: BP 113/39
[2019-11-01] MEDS: ATORVASTATIN CALCIUM 40 MG TABLET. PO SCH (21:24)
[2019-11-01 23:09] VITALS: BP 102/40
[2019-11-02] MEDS: MEROPENEM 500 MG in IV NORMAL SALINE 50ML 50 ML IV SCH ×3 (00:13→12:05)
[2019-11-02] MEDS: HYDROmorphone 2 MG/ML VIAL IV PRN ×3 (02:15→16:10)
[2019-11-02 03:00] VITALS: BP 114/52
[2019-11-02] MEDS: HYDROcodone/APAP 7.5/325MG 1 TAB TABLET PO PRN ×3 (05:12→17:27)
[2019-11-02 07:15] VITALS: BP 106/45
[2019-11-02] MEDS: FOLIC ACID 1 MG TABLET. PO SCH (09:40)
[2019-11-02] MEDS: LACTOBACILLUS RHAMNOSUS GG 1 CAPSULE. PO SCH (09:40)
[2019-11-02] MEDS: PANTOPRAZOLE 40 MG TABLET.DR. PO SCH (09:40)
[2019-11-02] MEDS: VITAMIN B12,B9,B6 COMPLEX 1 TABLET. PO SCH (09:40)
[2019-11-02] MEDS: FERROUS SULFATE 325 MG TABLET. PO SCH (09:40)
[2019-11-02] MEDS: GABAPENTIN 100 MG CAPSULE. PO SCH ×2 (09:40→14:59)
[2019-11-02] MEDS: DOXYCYCLINE HYCLATE 100 MG in IV DEXTROSE 5% 100ML 100 ML IV SCH (09:41)
[2019-11-02] MEDS: NYSTATIN TOPICAL POWDER 15GM BOTTLE. TP SCH (09:43)
--- NOTE | 2019-11-02 09:44 | NUR ---
[facility] following. Discussed with RN, and Theodore charge entry clerk, pt will need to come to [facility] for wound vac changes due to extensity of wounds. [facility] sent message to [facility] to determine if this is okay with them. [facility] received insurance auth this morning, awaiting confirmation of IV abx and wound vac changes. [facility] will continue to follow. RN notified. Addendum: 11/02/19 at 1537 by ELTON VERMA [facility] and Theodore with wound care came to an agreement/ understanding regarding patient needs. Pt will come to wound clinic at [facility] once a week and wound care will be done at [facility] once a week. IV abx switched to oral cipro. Discharge paperwork and scripts faxed to [facility], transportation arranged for 1729 by [facility]. RN notified. [facility] attempted to meet with pt, pt busy with wound care. [facility] to attempt again prior to 1729. Addendum: 11/02/19 at 1626 by ELTON VERMA SW met with pt, advised of transportation time. Pt in agreement. Pt signed choice of vendor form. RN notified. No further SW needs.
[2019-11-02] MEDS ORDERED: HYDROmorphone 2 MG/ML VIAL IVP ONE ×2 (09:45→15:00)
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
[2019-11-02] MEDS: ONDANSETRON PF 4 MG/2 ML VIAL. IV PRN (10:21)
[2019-11-02 10:51] VITALS: BP 106/64
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
--- NOTE | 2019-11-02 13:05 | RAD ---
INDICATION: Reason: recent PICC, now arm swollen, eval DVT / Spl. Instructions: / History: COMPARISON: None. TECHNIQUE: Grayscale, color and doppler ultrasound images were obtained of the right upper extremity venous vasculature. RIGHT: No thrombus identified in the internal jugular, subclavian, axillary, brachial, basilic, cephalic, radial or ulnar veins. PICC line is seen. IMPRESSION: 1. No thrombus identified in deep venous system of right upper extremity. Electronically signed by: Mike Reyes MD (11/02/2019 1:02 PM) [id number]
[2019-11-02] MEDS ORDERED: HYDR-3164 PO (14:48)
[2019-11-02] MEDS ORDERED: GABA-585 PO (14:48)
[2019-11-02] MEDS ORDERED: FERR325T72 PO (14:48)
[2019-11-02] MEDS ORDERED: CYAN1TAB19 PO (14:48)
--- NOTE | 2019-11-02 14:50 | SNU/HH DC ---
DISCHARGE ORDERS DISCHARGE INFORMATION: DISCHARGE DATE: Nov 02, 2019 FINAL DIAGNOSIS leg cellulitis and abcess, open wound morbid obesity, BMI 73 weakness htn anxiety CONDITION ON DISCHARGE: Stable CODE STATUS: Code Status: Full LONG-TERM: SNF STAY <30 DAYS: Yes POST DISCHARGE ORDERS: ACTIVITY ORDERS: Activity as tolerated WEIGHT BEARING STATUS: As tolerated DIET AFTER DISCHARGE: ADA FOLLOW-UP: PHYSICIAN FOLLOW-UP: wound care at [facility] 2x.week TREATMENT/EQUIPMENT ORDERS: Physical Therapy For: Evalulation/Treatment DISCHARGE MEDICATIONS: Home Meds Active Scripts Apixaban (ELIQUIS) 5 Mg Tablet, 5 MG PO BID for prevent DVT, #30 TAB Prov:MIREILLE HOPE MD 11/02/19 Hydrocodone Bit/Acetaminophen (HYDROCODONE-APAP 7.5-325 ) 1 Tab Tablet, 1 TAB PO PRN Q4HRS PRN for PAIN, #45 TAB Prov:MIREILLE HOPE MD 11/02/19 Ciprofloxacin Hcl (CIPRO) 500 Mg Tablet, 1 TAB PO BID for wound infection for 7 Days, #14 TAB 0 Refills Prov:MIREILLE HOPE MD 11/02/19 Morphine Sulfate Er (MS CONTIN) 15 Mg Tablet.er, 1 TAB PO HS for pain MDD 2 Tablet(s) for 15 Days, #15 TAB 0 Refills Prov:MIREILLE HOPE MD 11/02/19 Ferrous Sulfate (FEOSOL) 325 Mg Tablet, 325 MG PO DAILYWBKFT for anemia, #30 TAB Prov:MIREILLE HOPE MD 11/02/19 Cyanocobalamin/Fa/Pyridoxine (FOLBIC TABLET) 1 Each Tablet, 1 TAB PO DAILY for vitamin, #30 TAB Prov:MIREILLE HOPE MD 11/02/19 Gabapentin (GABAPENTIN ) 100 Mg Capsule, 200 MG PO TID for pain, #90 CAP Prov:MIREILLE HOPE MD 11/02/19 Orphenadrine Citrate (ORPHENADRINE CITRATE) 100 Mg Tablet.er, 100 MG PO BID PRN for MUSCLE PAIN for 5 Days, #10 TAB.SR Prov:MARITA CHAVEZ APRN 06/21/19 Fluconazole (DIFLUCAN) 150 Mg Tablet, 1 TAB PO ONCE, #2 TAB 0 Refills Please take one tablet today, and repeat one tablet in 48 hours if symptoms persist. Prov:ERNESTINA BENTON DO 03/04/16 Reported Medications Sennosides/Docusate Sodium (SENNA PLUS TABLET) 1 Each Tablet, 1 TAB PO DAILY for constipation for 20 Days, #20 TAB 0 Refills 10/24/19 Ergocalciferol (Vitamin D2) (Vitamin D2) 1,250 Mcg Capsule, 1250 MCG PO WEEKLY for vitamin, CAP 10/24/19 Famotidine (FAMOTIDINE) 20 Mg Tablet, 20 MG PO BID for gerd, TAB 10/24/19 Rosuvastatin Calcium (CRESTOR) 40 Mg Tablet, 20 MG PO HS for FOR CHOLESTEROL, #30 TAB 0 Refills 10/24/19 Levothyroxine Sodium (LEVOTHYROXINE SODIUM) 25 Mcg Tablet, 1 TAB PO DAILY for thyroid 10/24/19 Ibuprofen (Ibuprofen) 800 Mg Tablet, 1 TAB PO PRN Q8HRS PRN for PAIN 10/24/19 Fluconazole (FLUCONAZOLE) 150 Mg Tablet, 2 SPRAYS NS DAILY for allergies 10/24/19 Nortriptyline Hcl (NORTRIPTYLINE HCL) 25 Mg Capsule, 1 CAP PO DAILY for depression 10/24/19 Citalopram Hydrobromide (CITALOPRAM HBR) 40 Mg Tablet, 1 TAB PO DAILY for depression 10/24/19 Triamterene/Hydrochlorothiazid (TRIAMTERENE-HCTZ 37.5-25 MG TB) 1 Each Tablet, 1 TAB PO DAILY for bp 10/24/19 Rosuvastatin Calcium (Rosuvastatin Calcium) 20 Mg Tablet, 20 MG PO QHS for HLD for 30 Days, #30 2 Refills 10/23/19 Discontinued Reported Medications Hydrocodone/Acetaminophen (Hydrocodone-Acetamin 7.5-325) 1 Each Tablet, 1 EACH PO PRN Q4-6HRS PRN for PAIN, TAB 10/24/19 Oxycodone/Apap 5-325 (PERCOCET 5-325 MG TABLET ) 1 Each Tablet, 1 TAB PO PRN Q4HRS PRN for PAIN, TAB 0 Refills 10/24/19 Hydrocodone/Acetaminophen (Hydrocodone-Acetamin 7.5-325) 1 Each Tablet, 1-2 TAB PO Q6HRS for pain 10/24/19 Discontinued Scripts Hydrocodone/Apap 5-325 (NORCO 5-325 TABLET) 1 Each Tablet, 1 EACH PO Q4HRS PRN for PAIN, #30 TAB Prov:MIREILLE HOPE MD 11/02/19 Methylprednisolone (MEDROL) 4 Mg Tab.ds.pk, 1 PKG PO UD, #1 PKG Prov:MARITA CHAVEZ APRN 06/21/19 MIREILLE HOPE MD Nov 02, 2019 14:50
[2019-11-02] MEDS ORDERED: MORP15TA80 PO (14:57)
[2019-11-02] MEDS ORDERED: IRON SUCROSE COMPLEX 200 MG in IV NORMAL SALINE 100ML 100 ML IV ONE (15:00)
[2019-11-02] MEDS ORDERED: CIPR500T94 PO (15:01)
[2019-11-02] MEDS ORDERED: HYDR-2765 PO (15:03)
[2019-11-02] MEDS ORDERED: APIX5TAB PO (15:08)
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
[2019-11-02 15:15] VITALS: BP 122/60
--- NOTE | 2019-11-02 15:29 | NUR ---
Wound Care Wound care follow up for wound vac change and assessment for discharge. Cleansed, pictured and measured wound and reapplied wound vac with 5 pieces of black foam at 125 mmHg continuous pressure. Pt is discharging to [facility] today, Will leave with vac in place and Michael from [facility] will pickle maker vac from [facility] and return it to us. Pt will continue to follow with Wound clinic after discharge.
--- NOTE | 2019-11-02 17:08 | NUR ---
D/c photos of R armpit, R breast, r and L pannis taken and placed in chart.
--- NOTE | 2019-11-02 18:33 | NUR ---
Pt. discharged to [facility] via per transportation. LLE wound vac CDI.
== END 2019-11-02 19:13 | DRG 571 ==
LOC: 4 NORTH 16:14
PROVIDERS: ADMIT Internal Medicine; ATTEND Internal Medicine
PROC: 02HV33Z Insertion of Infusion Device into Superior Vena Cava, Percutaneous Approach (ICD-10-PCS; 2019-10-23)
PROC: 0JBR0ZZ Excision of Left Foot Subcutaneous Tissue and Fascia, Open Approach (ICD-10-PCS; principal; 2019-10-30 13:15)
DX: L02.416 Cutaneous abscess of left lower limb (principal); Z68.45 Body mass index [BMI] 70 or greater, adult; L03.116 Cellulitis of left lower limb; D51.0 Vitamin B12 deficiency anemia due to intrinsic factor deficiency; E03.9 Hypothyroidism, unspecified; E66.01 Morbid (severe) obesity due to excess calories; E78.5 Hyperlipidemia, unspecified; F32.9 Major depressive disorder, single episode, unspecified; F41.9 Anxiety disorder, unspecified; G89.29 Other chronic pain; I89.0 Lymphedema, not elsewhere classified; K21.9 Gastro-esophageal reflux disease without esophagitis; K80.20 Calculus of gallbladder without cholecystitis without obstruction; L30.4 Erythema intertrigo; S80.12XA Contusion of left lower leg, initial encounter; V89.2XXA Person injured in unspecified motor-vehicle accident, traffic, initial encounter; Y92.410 Unspecified street and highway as the place of occurrence of the external cause; Z20.828 Contact with and (suspected) exposure to other viral communicable diseases; Z80.7 Family history of other malignant neoplasms of lymphoid, hematopoietic and related tissues; M19.90 Unspecified osteoarthritis, unspecified site
CPT/HCPCS: 36415; 36569; 71045; 73701; 80048; 80053; 80202; 82274; 82607; 82728; 83036; 83540; 83550; 85007; 85014; 85018; 85025; 85045; 86140; 87040; 87071; 87075; 87076; 87077; 87186; 87426; 93971; J0330; J0690; J0780; J1100; J1170; J1650; J2185; J2270; J2405; J2543; J2704; J3010; J3370; J3420; J3490; J7040; J7060; J7120; Q9967; 97110-GO; 97116-GP; 97140-GO; 97530-GP; 97535-GO; A4461; G0378; Q0163; U0003-CS

== ENCOUNTER 2019-12-03 07:27 | Inpatient (IN) | payer OTHER ==
[~2019-12-03] VITALS: Ht 167.6 cm; Wt 203.3 kg
[~2019-12-03 07:27] MED LIST changes: +APIX5TAB PO; +CIPR500T94 PO; +CITA40TA5 PO; +CRESTOR40 MG PO; +CYAN1TAB19 PO; +ERGO500027 PO; +FAMO20TA5 PO; +FERR325T72 PO; +FLUC150T2 NS; +GABA-585 PO; +HYDR-2763 PO; +HYDR-2765 PO; +IBUP800T19 PO; +LEVO25TA4 PO; +MORP15TA80 PO; +NORT25CA PO; +OXYC1TAB15 PO; +ROSU20TA28 PO; +SENN1TAB62 PO; +TRIA1TAB3 PO
[2019-12-03 08:30] LABS: BASO # 0.1 x10^3/uL (0.0-0.2); BASO % 1 % (0-3); EOS # 0.3 x10^3/uL (0.0-0.7); EOS % 3 % (0-3); HEMATOCRIT 21.5 % (36.0-47.0); LYMPH # 1.3 x10^3/uL (1.0-4.8); LYMPH % 11 % (24-48); MEAN CORPUSCULAR HEMOGLOBIN 26 pg (25-35); MEAN CORPUSCULAR HGB CONC 32 g/dL (31-37); MEAN CORPUSCULAR VOLUME 81 fL (79-100); MONO # 0.9 x10^3/uL (0.0-1.1); MONO % 8 % (0-9); NEUT # 9.4 x10^3/uL (1.8-7.7); NEUT % 78 % (31-73); PLATELET COUNT 581 x10^3/uL (140-400); RED BLOOD COUNT 2.68 x10^6/uL (3.50-5.40); RED CELL DISTRIBUTION WIDTH 18.4 % (11.5-14.5); WHITE BLOOD COUNT 12.1 x10^3/uL (4.0-11.0)
[2019-12-03] MEDS ORDERED: cefTRIAXone IV Push 1 GM VIAL. IVP ONE (08:30)
[2019-12-03 08:40] LABS: HEMOGLOBIN 6.8 g/dL (12.0-15.5)
[2019-12-03 08:41] LABS: CALCIUM 8.9 mg/dL (8.5-10.1); GFR 58.2; POTASSIUM 4.1 mmol/L (3.5-5.1)
[2019-12-03 08:48] LABS: ALBUMIN 1.9 g/dL (3.4-5.0); ALBUMIN/GLOBULIN RATIO 0.4 (1.0-1.7); TOTAL BILIRUBIN 0.4 mg/dL (0.2-1.0); TOTAL PROTEIN 7.2 g/dL (6.4-8.2)
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
[2019-12-03 11:48] VITALS: BP 103/51
[2019-12-03 12:06] VITALS: BP 103/50
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
--- NOTE | 2019-12-03 13:15 | PDOC2 ---
CONSULT Date of Consult Date of Consult DATE: 12/03/19 TIME: 13:14 Reason for Consult Reason for Consult: leg wound Referring Physician Referring Physician: er Identification/Chief Complaint Chief Complaint odor and bleeding leg wound Source Source: Chart review, Patient History of Present Illness Reason for Visit: Known from previous admission with LLE wound, required debridement. Wound vac was placed. Has been following with wound care. Vac last changed on , was to fu with Dr Ham this week Noted bleeding and odor from area with vac in place Past Medical History Past Medical History lymphedema , morbid obesity Cardiovascular: No pertinent hx Pulmonary: No pertinent hx Past Surgical History Past Surgical History: Other (debridement LLE) Family History Family History: High Cholestrol, Hypertension Social History ALCOHOL: none Drugs: None Current Problem List Problem List Problems Medical Problems: (1) Wound infection Status: Acute Current Medications Current Medications Current Medications Ceftriaxone Sodium (Rocephin) 1 gm 1X ONCE IVP Last administered on 12/03/19at 09:05; Start 12/03/19 at 08:30; Stop 12/03/19 at 08:31; Status DC Active Scripts Active Eliquis (Apixaban) 5 Mg Tablet 5 Mg PO BID Hydrocodone-Apap 7.5-325 (Hydrocodone Bit/Acetaminophen) 1 Tab Tablet 1 Tab PO PRN Q4HRS PRN Cipro (Ciprofloxacin Hcl) 500 Mg Tablet 1 Tab PO BID 7 Days Ms Contin (Morphine Sulfate) 15 Mg Tablet.er 1 Tab PO HS MDD 2 Tablet(s) 15 Days Feosol (Ferrous Sulfate) 325 Mg Tablet 325 Mg PO DAILYWBKFT Folbic Tablet (Cyanocobalamin/Fa/Pyridoxine) 1 Each Tablet 1 Tab PO DAILY Gabapentin (Gabapentin) 100 Mg Capsule 200 Mg PO TID Orphenadrine Citrate 100 Mg Tablet.er 100 Mg PO BID PRN 5 Days Diflucan (Fluconazole) 150 Mg Tablet 1 Tab PO ONCE Please take one tablet today, and repeat one tablet in 48 hours if symptoms persist. Reported Senna Plus Tablet (Sennosides/Docusate Sodium) 1 Each Tablet 1 Tab PO DAILY 20 Days Vitamin D2 (Ergocalciferol (Vitamin D2)) 1,250 Mcg Capsule 1,250 Mcg PO WEEKLY Famotidine 20 Mg Tablet 20 Mg PO BID Crestor (Rosuvastatin Calcium) 40 Mg Tablet 20 Mg PO HS Levothyroxine Sodium 25 Mcg Tablet 1 Tab PO DAILY Ibuprofen 800 Mg Tablet 1 Tab PO PRN Q8HRS PRN Fluconazole 150 Mg Tablet 2 Sprays NS DAILY Nortriptyline Hcl 25 Mg Capsule 1 Cap PO DAILY Citalopram Hbr (Citalopram Hydrobromide) 40 Mg Tablet 1 Tab PO DAILY Triamterene-Hctz 37.5-25 Mg Tb (Triamterene/Hydrochlorothiazid) 1 Each Tablet 1 Tab PO DAILY Rosuvastatin Calcium 20 Mg Tablet 20 Mg PO QHS 30 Days Allergies Allergies: Coded Allergies: I S O L A T I O N *CONTACT* (Verified Allergy, Unknown, 11/28/19) mrsa amitriptyline HCl (Verified Adverse Reaction, Intermediate, 10/30/19) FEELS SPACY WHEN TAKES Uncoded Allergies: red meat (Adverse Reaction, Mild, GI upset, 02/04/15) ROS General: YES: Fatigue, Other (no fevers ) PSYCHOLOGICAL ROS: No: Anxiety, Depression Eyes: No Blurry vision, No Double vision HEENT: No: Heacaches, Sore Throat Hematological and Lymphatic: YES: Bleeding Problems; No: Blood Clots Respiratory: No: Cough, Shortness of breath Cardiovascular: No Chest Pain, No Palpitations Gastrointestinal: No Nausea, No Vomiting Genitourinary: No Dysuria, No Hematuria Musculoskeletal: Yes Joint Pain, Yes Muscle Pain Neurological: Yes Impaired Coord/balance; No Confusion Skin: Yes Other (see hpi) Physical Exam General: Alert, Oriented X3, Cooperative HEENT: PERRLA, Mucous membr. moist/pink Lungs: Clear to auscultation, Normal air movement Heart: Regular rate, Normal S1, Normal S2 Abdomen: Soft, No tenderness Extremities: Other (wound to LLE with necrotic tissue surrounding edge of wound, some eschar noted in wound bed ) Neuro: Normal speech, Sensation intact Vitals VITALS Vital Signs Date Time Temp Pulse Resp B/P (MAP) Pulse Ox O2 Delivery O2 Flow Rate FiO2 12/03/19 12:06 97.9 83 20 103/50 97.9 12/03/19 07:33 95 Room Air Labs Labs Laboratory Tests Test 12/03/19 07:43 12/03/19 10:27 White Blood Count 12.1 x10^3/uL (4.0-11.0) Red Blood Count 2.68 x10^6/uL (3.50-5.40) Hemoglobin 6.8 g/dL (12.0-15.5) Hematocrit 21.5 % (36.0-47.0) Mean Corpuscular Volume 81 fL (79-100) Mean Corpuscular Hemoglobin 26 pg (25-35) Mean Corpuscular Hemoglobin Concent 32 g/dL (31-37) Red Cell Distribution Width 18.4 % (11.5-14.5) Platelet Count 581 x10^3/uL (140-400) Neutrophils (%) (Auto) 78 % (31-73) Lymphocytes (%) (Auto) 11 % (24-48) Monocytes (%) (Auto) 8 % (0-9) Eosinophils (%) (Auto) 3 % (0-3) Basophils (%) (Auto) 1 % (0-3) Neutrophils # (Auto) 9.4 x10^3/uL (1.8-7.7) Lymphocytes # (Auto) 1.3 x10^3/uL (1.0-4.8) Monocytes # (Auto) 0.9 x10^3/uL (0.0-1.1) Eosinophils # (Auto) 0.3 x10^3/uL (0.0-0.7) Basophils # (Auto) 0.1 x10^3/uL (0.0-0.2) Sodium Level 134 mmol/L (136-145) Potassium Level 4.1 mmol/L (3.5-5.1) Chloride Level 100 mmol/L (98-107) Carbon Dioxide Level 26 mmol/L (21-32) Anion Gap 8 (6-14) Blood Urea Nitrogen 13 mg/dL (7-20) Creatinine 1.0 mg/dL (0.6-1.0) Estimated GFR (Cockcroft-Gault) 58.2 BUN/Creatinine Ratio 13 (6-20) Glucose Level 141 mg/dL (70-99) Lactic Acid Level 2.1 mmol/L (0.4-2.0) 1.1 mmol/L (0.4-2.0) Calcium Level 8.9 mg/dL (8.5-10.1) Total Bilirubin 0.4 mg/dL (0.2-1.0) Aspartate Amino Transf (AST/SGOT) 23 U/L (15-37) Alanine Aminotransferase (ALT/SGPT) 22 U/L (14-59) Alkaline Phosphatase 172 U/L (46-116) Total Protein 7.2 g/dL (6.4-8.2) Albumin 1.9 g/dL (3.4-5.0) Albumin/Globulin Ratio 0.4 (1.0-1.7) Laboratory Tests Test 12/03/19 07:43 12/03/19 10:27 White Blood Count 12.1 x10^3/uL (4.0-11.0) Red Blood Count 2.68 x10^6/uL (3.50-5.40) Hemoglobin 6.8 g/dL (12.0-15.5) Hematocrit 21.5 % (36.0-47.0) Mean Corpuscular Volume 81 fL (79-100) Mean Corpuscular Hemoglobin 26 pg (25-35) Mean Corpuscular Hemoglobin Concent 32 g/dL (31-37) Red Cell Distribution Width 18.4 % (11.5-14.5) Platelet Count 581 x10^3/uL (140-400) Neutrophils (%) (Auto) 78 % (31-73) Lymphocytes (%) (Auto) 11 % (24-48) Monocytes (%) (Auto) 8 % (0-9) Eosinophils (%) (Auto) 3 % (0-3) Basophils (%) (Auto) 1 % (0-3) Neutrophils # (Auto) 9.4 x10^3/uL (1.8-7.7) Lymphocytes # (Auto) 1.3 x10^3/uL (1.0-4.8) Monocytes # (Auto) 0.9 x10^3/uL (0.0-1.1) Eosinophils # (Auto) 0.3 x10^3/uL (0.0-0.7) Basophils # (Auto) 0.1 x10^3/uL (0.0-0.2) Sodium Level 134 mmol/L (136-145) Potassium Level 4.1 mmol/L (3.5-5.1) Chloride Level 100 mmol/L (98-107) Carbon Dioxide Level 26 mmol/L (21-32) Anion Gap 8 (6-14) Blood Urea Nitrogen 13 mg/dL (7-20) Creatinine 1.0 mg/dL (0.6-1.0) Estimated GFR (Cockcroft-Gault) 58.2 BUN/Creatinine Ratio 13 (6-20) Glucose Level 141 mg/dL (70-99) Lactic Acid Level 2.1 mmol/L (0.4-2.0) 1.1 mmol/L (0.4-2.0) Calcium Level 8.9 mg/dL (8.5-10.1) Total Bilirubin 0.4 mg/dL (0.2-1.0) Aspartate Amino Transf (AST/SGOT) 23 U/L (15-37) Alanine Aminotransferase (ALT/SGPT) 22 U/L (14-59) Alkaline Phosphatase 172 U/L (46-116) Total Protein 7.2 g/dL (6.4-8.2) Albumin 1.9 g/dL (3.4-5.0) Albumin/Globulin Ratio 0.4 (1.0-1.7) Assessment/Plan Assessment/Plan LLE--will do wet to dry today, will have Dr Jitendra view tomorrow, may need additional debridement blood for anemia abx per OG [employer] Dec 03, 2019 13:15
[2019-12-03] MEDS ORDERED: MORPHINE SULFATE 10 MG/ML VIAL. IV ONE (13:45)
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
[2019-12-03 15:00] VITALS: BP 104/34
[2019-12-03] MEDS ORDERED: FERR325T14 PO (16:09)
[2019-12-03] MEDS ORDERED: ASCO500C PO (16:09)
[2019-12-03] MEDS ORDERED: CALC200T3 PO (16:09)
[2019-12-03] MEDS ORDERED: CLIN300C8 PO (16:11)
[2019-12-03] MEDS ORDERED: CAPS42.514 TP (16:11)
--- NOTE | 2019-12-03 16:35 | PDOC ---
Infectious Disease Note Vital Sign Vital Signs Vital Signs Date Time Temp Pulse Resp B/P (MAP) Pulse Ox O2 Delivery O2 Flow Rate FiO2 12/03/19 15:00 97.8 88 19 104/34 (57) 99 Room Air 97.8 Labs Lab Laboratory Tests Test 12/03/19 07:43 12/03/19 10:27 White Blood Count 12.1 x10^3/uL (4.0-11.0) Red Blood Count 2.68 x10^6/uL (3.50-5.40) Hemoglobin 6.8 g/dL (12.0-15.5) Hematocrit 21.5 % (36.0-47.0) Mean Corpuscular Volume 81 fL (79-100) Mean Corpuscular Hemoglobin 26 pg (25-35) Mean Corpuscular Hemoglobin Concent 32 g/dL (31-37) Red Cell Distribution Width 18.4 % (11.5-14.5) Platelet Count 581 x10^3/uL (140-400) Neutrophils (%) (Auto) 78 % (31-73) Lymphocytes (%) (Auto) 11 % (24-48) Monocytes (%) (Auto) 8 % (0-9) Eosinophils (%) (Auto) 3 % (0-3) Basophils (%) (Auto) 1 % (0-3) Neutrophils # (Auto) 9.4 x10^3/uL (1.8-7.7) Lymphocytes # (Auto) 1.3 x10^3/uL (1.0-4.8) Monocytes # (Auto) 0.9 x10^3/uL (0.0-1.1) Eosinophils # (Auto) 0.3 x10^3/uL (0.0-0.7) Basophils # (Auto) 0.1 x10^3/uL (0.0-0.2) Sodium Level 134 mmol/L (136-145) Potassium Level 4.1 mmol/L (3.5-5.1) Chloride Level 100 mmol/L (98-107) Carbon Dioxide Level 26 mmol/L (21-32) Anion Gap 8 (6-14) Blood Urea Nitrogen 13 mg/dL (7-20) Creatinine 1.0 mg/dL (0.6-1.0) Estimated GFR (Cockcroft-Gault) 58.2 BUN/Creatinine Ratio 13 (6-20) Glucose Level 141 mg/dL (70-99) Lactic Acid Level 2.1 mmol/L (0.4-2.0) 1.1 mmol/L (0.4-2.0) Calcium Level 8.9 mg/dL (8.5-10.1) Total Bilirubin 0.4 mg/dL (0.2-1.0) Aspartate Amino Transf (AST/SGOT) 23 U/L (15-37) Alanine Aminotransferase (ALT/SGPT) 22 U/L (14-59) Alkaline Phosphatase 172 U/L (46-116) Total Protein 7.2 g/dL (6.4-8.2) Albumin 1.9 g/dL (3.4-5.0) Albumin/Globulin Ratio 0.4 (1.0-1.7) Objective Assessment pt seen, consult dictated Plan Plan of Care / LEV JASMINE MD Dec 03, 2019 16:35
[2019-12-03] MEDS ORDERED: CALCIUM CARBONATE 500 MG TAB.CHEW PO PRN (16:45)
[2019-12-03] MEDS: MORPHINE SULFATE 4 MG/ML VIAL. IV PRN ×2 (17:26→21:31)
[2019-12-03] MEDS: FERROUS SULFATE 325 MG TABLET. PO SCH (17:26)
[2019-12-03] MEDS: GABAPENTIN 100 MG CAPSULE. PO SCH ×2 (17:26→21:31)
[2019-12-03] MEDS: HYDROcodone/APAP 7.5/325MG 1 TAB TABLET PO PRN ×2 (17:38→23:41)
[2019-12-03 19:00] VITALS: BP 95/44
[2019-12-03] MEDS: tiZANidine 4 MG TABLET. PO PRN (19:56)
[2019-12-03] MEDS: PIPERACILLIN/TAZOBACTAM 4.5 GM in IV NORMAL SALINE 100ML 100 ML IV SCH (19:56)
[2019-12-03] MEDS: ATORVASTATIN CALCIUM 40 MG TABLET. PO SCH (21:31)
[2019-12-03] MEDS: FAMOTIDINE 20 MG TABLET. PO SCH (21:31)
[2019-12-03] MEDS: ASCORBIC ACID 500 MG TABLET PO SCH (21:32)
[2019-12-03] MEDS: MORPHINE ER 15 MG TABLET.ER PO SCH (21:32)
[2019-12-03] MEDS: APIXABAN 5 MG TABLET. PO SCH (21:32)
[2019-12-03] MEDS: CAPSAICIN 0.025% TOPICAL CREAM 60GM TUBE. TP SCH (21:33)
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
[2019-12-03 23:00] VITALS: BP 97/38
[2019-12-04] VITALS (11 sets, daily range): BP systolic 98–137; BP diastolic 40–72
[2019-12-04] MEDS: PIPERACILLIN/TAZOBACTAM 4.5 GM in IV NORMAL SALINE 100ML 100 ML IV SCH ×4 (01:01→18:11)
[2019-12-04] MEDS: MORPHINE SULFATE 4 MG/ML VIAL. IV PRN ×4 (01:52→19:38)
[2019-12-04] MEDS: TRIAMTERENE/HCTZ 37.5/25MG TABLET. PO SCH (09:00)
[2019-12-04] MEDS: CAPSAICIN 0.025% TOPICAL CREAM 60GM TUBE. TP SCH ×3 (09:00→20:19)
[2019-12-04] MEDS: APIXABAN 5 MG TABLET. PO SCH ×2 (09:00→15:52)
--- NOTE | 2019-12-04 10:03 | PDOC ---
SURGICAL PROGRESS NOTE DATE: 12/04/19 TIME: 09:52 Subjective resting leg pain Vital Signs Vital Signs Date Time Temp Pulse Resp B/P (MAP) Pulse Ox O2 Delivery O2 Flow Rate FiO2 12/04/19 07:00 97.9 83 19 98/46 (63) 94 Room Air 97.9 I&O Intake and Output 12/04/19 07:00 Intake Total 1450 ml Output Total 0 ml Balance 1450 ml Intake Oral 300 ml IV Total 500 ml Blood Product IV Normal Saline Flush 650 ml Output Urine Total 0 ml # Voids 2 General: Alert, Oriented X3, Cooperative Extremities: Other (wound wrapped, some drainage noted ) Labs Laboratory Tests Test 12/03/19 07:43 12/03/19 10:27 White Blood Count 12.1 x10^3/uL (4.0-11.0) Red Blood Count 2.68 x10^6/uL (3.50-5.40) Hemoglobin 6.8 g/dL (12.0-15.5) Hematocrit 21.5 % (36.0-47.0) Mean Corpuscular Volume 81 fL (79-100) Mean Corpuscular Hemoglobin 26 pg (25-35) Mean Corpuscular Hemoglobin Concent 32 g/dL (31-37) Red Cell Distribution Width 18.4 % (11.5-14.5) Platelet Count 581 x10^3/uL (140-400) Neutrophils (%) (Auto) 78 % (31-73) Lymphocytes (%) (Auto) 11 % (24-48) Monocytes (%) (Auto) 8 % (0-9) Eosinophils (%) (Auto) 3 % (0-3) Basophils (%) (Auto) 1 % (0-3) Neutrophils # (Auto) 9.4 x10^3/uL (1.8-7.7) Lymphocytes # (Auto) 1.3 x10^3/uL (1.0-4.8) Monocytes # (Auto) 0.9 x10^3/uL (0.0-1.1) Eosinophils # (Auto) 0.3 x10^3/uL (0.0-0.7) Basophils # (Auto) 0.1 x10^3/uL (0.0-0.2) Sodium Level 134 mmol/L (136-145) Potassium Level 4.1 mmol/L (3.5-5.1) Chloride Level 100 mmol/L (98-107) Carbon Dioxide Level 26 mmol/L (21-32) Anion Gap 8 (6-14) Blood Urea Nitrogen 13 mg/dL (7-20) Creatinine 1.0 mg/dL (0.6-1.0) Estimated GFR (Cockcroft-Gault) 58.2 BUN/Creatinine Ratio 13 (6-20) Glucose Level 141 mg/dL (70-99) Lactic Acid Level 2.1 mmol/L (0.4-2.0) 1.1 mmol/L (0.4-2.0) Calcium Level 8.9 mg/dL (8.5-10.1) Total Bilirubin 0.4 mg/dL (0.2-1.0) Aspartate Amino Transf (AST/SGOT) 23 U/L (15-37) Alanine Aminotransferase (ALT/SGPT) 22 U/L (14-59) Alkaline Phosphatase 172 U/L (46-116) Total Protein 7.2 g/dL (6.4-8.2) Albumin 1.9 g/dL (3.4-5.0) Albumin/Globulin Ratio 0.4 (1.0-1.7) Laboratory Tests Test 12/03/19 10:27 Lactic Acid Level 1.1 mmol/L (0.4-2.0) Problem List Problems Medical Problems: (1) Wound infection Status: Acute Assessment/Plan will have Dr Ham review poor wound healing with co morbidities Justicifation of Admission Dx: Justifications for Admission: Justification of Admission Dx: Yes Cellulitis: Cellulitis OG ART CORRECTIONS SPECIALIST Dec 04, 2019 10:03
[2019-12-04 10:14] LABS: BASO % 0 % (0-3); EOS # 0.3 x10^3/uL (0.0-0.7); EOS % 3 % (0-3); LYMPH # 1.4 x10^3/uL (1.0-4.8); LYMPH % 14 % (24-48); MEAN CORPUSCULAR HEMOGLOBIN 26 pg (25-35); MEAN CORPUSCULAR HGB CONC 32 g/dL (31-37); MEAN CORPUSCULAR VOLUME 82 fL (79-100); MONO # 0.9 x10^3/uL (0.0-1.1); MONO % 9 % (0-9); NEUT # 7.7 x10^3/uL (1.8-7.7); NEUT % 74 % (31-73); PLATELET COUNT 530 x10^3/uL (140-400); RED BLOOD COUNT 2.55 x10^6/uL (3.50-5.40); RED CELL DISTRIBUTION WIDTH 19.1 % (11.5-14.5); WHITE BLOOD COUNT 10.3 x10^3/uL (4.0-11.0)
[2019-12-04 10:19] LABS: HEMATOCRIT 20.8 % (36.0-47.0); HEMOGLOBIN 6.7 g/dL (12.0-15.5)
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
[2019-12-04] MEDS: FAMOTIDINE 20 MG TABLET. PO SCH ×2 (11:56→20:19)
[2019-12-04] MEDS: GABAPENTIN 100 MG CAPSULE. PO SCH ×3 (11:56→20:20)
[2019-12-04] MEDS: SENNOSIDES/DOCUSATE 8.6/50MG TABLET. PO SCH (11:56)
[2019-12-04] MEDS: VITAMIN B12,B9,B6 COMPLEX 1 TABLET. PO SCH (11:57)
[2019-12-04] MEDS: CITALOPRAM 20 MG TABLET. PO SCH (11:57)
[2019-12-04] MEDS: NORTRIPTYLINE 25 MG CAPSULE PO SCH (11:57)
[2019-12-04] MEDS: LEVOTHYROXINE 25 MCG TABLET. PO SCH (11:57)
[2019-12-04] MEDS: ASCORBIC ACID 500 MG TABLET PO SCH ×2 (11:57→20:21)
[2019-12-04] MEDS: FERROUS SULFATE 325 MG TABLET. PO SCH ×2 (11:57→18:10)
[2019-12-04] MEDS: HYDROcodone/APAP 7.5/325MG 1 TAB TABLET PO PRN ×2 (11:58→18:10)
[2019-12-04] MEDS: tiZANidine 4 MG TABLET. PO PRN ×2 (12:08→19:38)
[2019-12-04] MEDS ORDERED: ANTI-COAG MONITOR BY PHARMACY. MC PRN (12:15)
--- NOTE | 2019-12-04 15:16 | PDOC ---
PROGRESS NOTES Date of Service: DATE: 12/04/19 TIME: 15:13 Chief Complaint Chief Complaint Leg wound History of Present Illness History of Present Illness Patient evaluated bedside. She is anxious for procedure tomorrow. Admits to left lower extremity pain, controlled with medication. Discussed hemoglobin levels and need for transfusion. Discussed with RN. Vitals Vitals Vital Signs Date Time Temp Pulse Resp B/P (MAP) Pulse Ox O2 Delivery O2 Flow Rate FiO2 12/04/19 14:50 97.8 83 19 99/48 (65) 93 Room Air 97.8 Physical Exam Physical Exam GENERAL: Alert, oriented female, not in distress. VITAL SIGNS: Stable and afebrile. HEENT: NAD. NECK: Supple, no JVP. No lymphadenopathy. LUNGS: Clear. HEART: S1 and S2 regular. ABDOMEN: Soft, nontender, no organomegaly. EXTREMITIES: No edema or cyanosis. SKIN: Unremarkable except left leg has erythema. The patient does have a large deep wound with about 70% of the tissue is healthy red granulation, but about 20-30% of the necrotic tissue with foul smell to it. There is no current active bleeding right now and the surrounding area is erythema, may have been chronic with stasis dermatitis. NEUROLOGIC: The patient is alert, awake, and appropriate. No focal neurologic deficit. General: Alert, Oriented X3, Cooperative Heart: Regular rate, Normal S1, Normal S2 Lungs: Clear Abdomen: Soft, No tenderness Extremities: Other (wound wrapped, some drainage noted ) Skin: No significant lesion Labs LABS Laboratory Tests Test 12/04/19 08:55 White Blood Count 10.3 x10^3/uL (4.0-11.0) Red Blood Count 2.55 x10^6/uL (3.50-5.40) Hemoglobin 6.7 g/dL (12.0-15.5) Hematocrit 20.8 % (36.0-47.0) Mean Corpuscular Volume 82 fL (79-100) Mean Corpuscular Hemoglobin 26 pg (25-35) Mean Corpuscular Hemoglobin Concent 32 g/dL (31-37) Red Cell Distribution Width 19.1 % (11.5-14.5) Platelet Count 530 x10^3/uL (140-400) Neutrophils (%) (Auto) 74 % (31-73) Lymphocytes (%) (Auto) 14 % (24-48) Monocytes (%) (Auto) 9 % (0-9) Eosinophils (%) (Auto) 3 % (0-3) Basophils (%) (Auto) 0 % (0-3) Neutrophils # (Auto) 7.7 x10^3/uL (1.8-7.7) Lymphocytes # (Auto) 1.4 x10^3/uL (1.0-4.8) Monocytes # (Auto) 0.9 x10^3/uL (0.0-1.1) Eosinophils # (Auto) 0.3 x10^3/uL (0.0-0.7) Basophils # (Auto) 0.0 x10^3/uL (0.0-0.2) Assessment and Plan Assessmemt and Plan Problems Medical Problems: (1) Wound infection Status: Acute Comment Review of Relevant I have reviewed the following items alejandro (where applicable) has been applied. Labs Laboratory Tests Test 12/03/19 07:43 12/03/19 10:27 12/04/19 08:55 White Blood Count 12.1 x10^3/uL (4.0-11.0) 10.3 x10^3/uL (4.0-11.0) Red Blood Count 2.68 x10^6/uL (3.50-5.40) 2.55 x10^6/uL (3.50-5.40) Hemoglobin 6.8 g/dL (12.0-15.5) 6.7 g/dL (12.0-15.5) Hematocrit 21.5 % (36.0-47.0) 20.8 % (36.0-47.0) Mean Corpuscular Volume 81 fL (79-100) 82 fL (79-100) Mean Corpuscular Hemoglobin 26 pg (25-35) 26 pg (25-35) Mean Corpuscular Hemoglobin Concent 32 g/dL (31-37) 32 g/dL (31-37) Red Cell Distribution Width 18.4 % (11.5-14.5) 19.1 % (11.5-14.5) Platelet Count 581 x10^3/uL (140-400) 530 x10^3/uL (140-400) Neutrophils (%) (Auto) 78 % (31-73) 74 % (31-73) Lymphocytes (%) (Auto) 11 % (24-48) 14 % (24-48) Monocytes (%) (Auto) 8 % (0-9) 9 % (0-9) Eosinophils (%) (Auto) 3 % (0-3) 3 % (0-3) Basophils (%) (Auto) 1 % (0-3) 0 % (0-3) Neutrophils # (Auto) 9.4 x10^3/uL (1.8-7.7) 7.7 x10^3/uL (1.8-7.7) Lymphocytes # (Auto) 1.3 x10^3/uL (1.0-4.8) 1.4 x10^3/uL (1.0-4.8) Monocytes # (Auto) 0.9 x10^3/uL (0.0-1.1) 0.9 x10^3/uL (0.0-1.1) Eosinophils # (Auto) 0.3 x10^3/uL (0.0-0.7) 0.3 x10^3/uL (0.0-0.7) Basophils # (Auto) 0.1 x10^3/uL (0.0-0.2) 0.0 x10^3/uL (0.0-0.2) Sodium Level 134 mmol/L (136-145) Potassium Level 4.1 mmol/L (3.5-5.1) Chloride Level 100 mmol/L (98-107) Carbon Dioxide Level 26 mmol/L (21-32) Anion Gap 8 (6-14) Blood Urea Nitrogen 13 mg/dL (7-20) Creatinine 1.0 mg/dL (0.6-1.0) Estimated GFR (Cockcroft-Gault) 58.2 BUN/Creatinine Ratio 13 (6-20) Glucose Level 141 mg/dL (70-99) Lactic Acid Level 2.1 mmol/L (0.4-2.0) 1.1 mmol/L (0.4-2.0) Calcium Level 8.9 mg/dL (8.5-10.1) Total Bilirubin 0.4 mg/dL (0.2-1.0) Aspartate Amino Transf (AST/SGOT) 23 U/L (15-37) Alanine Aminotransferase (ALT/SGPT) 22 U/L (14-59) Alkaline Phosphatase 172 U/L (46-116) Total Protein 7.2 g/dL (6.4-8.2) Albumin 1.9 g/dL (3.4-5.0) Albumin/Globulin Ratio 0.4 (1.0-1.7) Laboratory Tests Test 12/04/19 08:55 White Blood Count 10.3 x10^3/uL (4.0-11.0) Red Blood Count 2.55 x10^6/uL (3.50-5.40) Hemoglobin 6.7 g/dL (12.0-15.5) Hematocrit 20.8 % (36.0-47.0) Mean Corpuscular Volume 82 fL (79-100) Mean Corpuscular Hemoglobin 26 pg (25-35) Mean Corpuscular Hemoglobin Concent 32 g/dL (31-37) Red Cell Distribution Width 19.1 % (11.5-14.5) Platelet Count 530 x10^3/uL (140-400) Neutrophils (%) (Auto) 74 % (31-73) Lymphocytes (%) (Auto) 14 % (24-48) Monocytes (%) (Auto) 9 % (0-9) Eosinophils (%) (Auto) 3 % (0-3) Basophils (%) (Auto) 0 % (0-3) Neutrophils # (Auto) 7.7 x10^3/uL (1.8-7.7) Lymphocytes # (Auto) 1.4 x10^3/uL (1.0-4.8) Monocytes # (Auto) 0.9 x10^3/uL (0.0-1.1) Eosinophils # (Auto) 0.3 x10^3/uL (0.0-0.7) Basophils # (Auto) 0.0 x10^3/uL (0.0-0.2) Microbiology 12/03/19 Blood Culture - Preliminary, Resulted NO GROWTH AFTER 1 DAY Medications Current Medications Ceftriaxone Sodium (Rocephin) 1 gm 1X ONCE IVP Last administered on 12/03/19at 09:05; Start 12/03/19 at 08:30; Stop 12/03/19 at 08:31; Status DC Morphine Sulfate (Morphine Sulfate) 5 mg 1X ONCE IV Last administered on 12/03/19 13:51; Start 12/03/19 at 13:45; Stop 12/03/19 at 13:46; Status DC Piperacillin Sod/ Tazobactam Sod 4.5 gm/Sodium Chloride 100 ml @ 200 mls/hr Q6HRS IV Last administered on 12/04/19 11:56; Start 12/03/19 at 18:00 Linezolid/Dextrose 300 ml @ 300 mls/hr Q12HR IV Last administered on 12/04/19at 08:31; Start 12/03/19 at 18:00 Apixaban (Eliquis) 5 mg BID PO Last administered on 12/03/19 21:32; Start at 21:00 Calcium Carbonate/ Glycine (Tums) 200 mg PRN Q6HRS PRN PO HEARTBURN / GAS; Start 12/03/19 at 16:45 Vitamin B Complex (Folbic Tablet) 1 tab DAILY PO Last administered on 12/04/19 11:57; Start 12/04/19 at 09:00 Ergocalciferol (Vitamin D2) 50,000 unit WEEKLY PO ; Start 12/10/19 at 09:00 Famotidine (Pepcid) 20 mg BID PO Last administered on 12/04/19 11:56; Start at 21:00 Ferrous Sulfate (Feosol) 325 mg BIDWMEALS PO Last administered on 12/04/19 11:57; Start 12/03/19 at 17:00 Gabapentin (Neurontin) 200 mg TID PO Last administered on 12/04/19at 15:10; Start 12/03/19 at 17:00 Acetaminophen/ Hydrocodone Bitart (Lortab 7.5/325) 1 tab PRN Q4HRS PRN PO MODERATE TO SEVERE PAIN Last administered on 12/04/19 11:58; Start 12/03/19 at 16:45 Levothyroxine Sodium (Synthroid) 25 mcg DAILY06 PO Last administered on 12/04/19 11:57; Start 12/04/19 at 06:00 Morphine Sulfate (Ms Contin) 15 mg HS PO Last administered on 12/03/19at 21:32; Start 12/03/19 at 21:00 Nortriptyline HCl (Pamelor) 25 mg DAILY PO Last administered on 12/04/19at 11:57; Start 12/04/19 at 09:00 Senna/Docusate Sodium (Senna Plus) 1 tab DAILY PO Last administered on 12/04/19at 11:56; Start 12/04/19 at 09:00 Triamterene/HCTZ (Maxzide 37.5/ 25mg) 1 tab DAILY PO ; Start 12/04/19 at 09:00 Ascorbic Acid (Vitamin C) 500 mg BID PO Last administered on 12/04/19at 11:57; Start 12/03/19 at 21:00 Capsaicin (Zostrix) 1 aren TID TP Last administered on 12/03/19at 21:33; Start 12/03/19 at 21:00 Citalopram Hydrobromide (CeleXA) 40 mg DAILY PO Last administered on 12/04/19at 11:57; Start 12/04/19 at 09:00 Tizanidine HCl (Zanaflex) 1 mg PRN Q8HRS PRN PO MUSCLE SPASMS Last administered on 12/04/19at 12:08; Start 12/03/19 at 17:45 Atorvastatin Calcium (Lipitor) 80 mg QHS PO Last administered on 12/03/19at 21:31; Start 12/03/19 at 21:00 Morphine Sulfate (Morphine Sulfate) 4 mg PRN Q4HRS PRN IV MODERATE TO SEVERE PAIN Last administered on 12/04/19at 15:11; Start 12/03/19 at 17:15 Ringer's Solution 1,000 ml @ 30 mls/hr Q24H IV ; Start 12/05/19 at 07:00; Stop 12/05/19 at 18:59 Lidocaine HCl (Xylocaine-Mpf 1% 2ml Vial) 2 ml PRN 1X PRN ID PRIOR TO IV START; Start 12/05/19 at 07:00; Stop 12/06/19 at 06:59 Prochlorperazine Edisylate (Compazine) 5 mg PACU PRN PRN IV NAUSEA, MRX1; Start 12/05/19 at 07:00; Stop 12/06/19 at 06:59 Info (Anti-Coagulation Monitoring By Pharmacy) 1 each PRN DAILY PRN MC SEE COMMENTS Last administered on 12/04/19at 12:14; Start 12/04/19 at 12:15 Active Scripts Active Eliquis (Apixaban) 5 Mg Tablet 5 Mg PO BID Hydrocodone-Apap 7.5-325 (Hydrocodone Bit/Acetaminophen) 1 Tab Tablet 1 Tab PO PRN Q4HRS PRN Ms Contin (Morphine Sulfate) 15 Mg Tablet.er 1 Tab PO HS MDD 2 Tablet(s) 15 Days Folbic Tablet (Cyanocobalamin/Fa/Pyridoxine) 1 Each Tablet 1 Tab PO DAILY Gabapentin (Gabapentin) 100 Mg Capsule 200 Mg PO TID Orphenadrine Citrate 100 Mg Tablet.er 100 Mg PO BID PRN 5 Days Reported Capsaicin 42.5 Gm Cream..g. 42.5 Gm TP TID Clindamycin Hcl 300 Mg Capsule 300 Mg PO QID Tums (Calcium Carbonate) 200 Mg Tab.chew 200 Mg PO PRN Q6HRS PRN Vitamin C (Ascorbic Acid) 500 Mg Capsule.er 1 Cap PO BID 30 Days Ferrous Sulfate 325 Mg Tablet 1 Tab PO BID Senna Plus Tablet (Sennosides/Docusate Sodium) 1 Each Tablet 1 Tab PO DAILY 20 Days Vitamin D2 (Ergocalciferol (Vitamin D2)) 1,250 Mcg Capsule 1,250 Mcg PO WEEKLY Famotidine 20 Mg Tablet 20 Mg PO BID Crestor (Rosuvastatin Calcium) 40 Mg Tablet 20 Mg PO HS Levothyroxine Sodium 25 Mcg Tablet 1 Tab PO DAILY Nortriptyline Hcl 25 Mg Capsule 1 Cap PO DAILY Citalopram Hbr (Citalopram Hydrobromide) 40 Mg Tablet 1 Tab PO DAILY Triamterene-Hctz 37.5-25 Mg Tb (Triamterene/Hydrochlorothiazid) 1 Each Tablet 1 Tab PO DAILY Rosuvastatin Calcium 20 Mg Tablet 20 Mg PO QHS 30 Days Vitals/I & O Vital Sign - Last 24 Hours 12/03/19 12/03/19 12/03/19 12/03/19 16:00 19:00 20:10 21:31 Temp 98.4 98.4 Pulse 89 Resp 22 20 B/P (MAP) 95/44 (61) Pulse Ox 93 O2 Delivery Room Air Room Air Room Air Room Air 12/03/19 12/03/19 12/03/19 12/03/19 21:32 22:01 23:00 23:41 Temp 98.9 98.9 Pulse 80 Resp 18 B/P (MAP) 97/38 (57) Pulse Ox 97 93 O2 Delivery Room Air Nasal Cannula Room Air Room Air 12/04/19 12/04/19 12/04/19 12/04/19 00:41 01:52 02:52 07:00 Temp 98.5 97.9 98.5 97.9 Pulse 83 83 Resp 19 B/P (MAP) 106/40 (62) 98/46 (63) Pulse Ox 93 94 O2 Delivery Room Air Room Air Room Air Room Air 12/04/19 12/04/19 12/04/19 08:00 10:44 14:50 Temp 97.8 97.8 97.8 97.8 Pulse 80 83 Resp 19 B/P (MAP) 101/42 (61) 99/48 (65) Pulse Ox 94 93 O2 Delivery Room Air Room Air Room Air Intake and Output 12/03/19 12/03/19 12/04/19 15:00 23:00 07:00 Intake Total 650 ml 700 ml 100 ml Output Total 0 ml Balance 650 ml 700 ml 100 ml Justicifation of Admission Dx: Justifications for Admission: Justification of Admission Dx: Yes Cellulitis: Cellulitis GERARDO ESPARZA MD Dec 04, 2019 15:16
--- NOTE | 2019-12-04 16:37 | NUR ---
SW following. Spoke with RN and reviewed chart. Pt from home with Emily AGUIRRE. Pt was admitted at [facility] last month and discharged home with . Pt currently on room air as well as IV Zosyn and IV pain medication. Pt is being followed by wound care and will likely require a wound vac. Coordinated care with Mitzi from [facility]. [place] following.
[2019-12-04] MEDS: MORPHINE ER 15 MG TABLET.ER PO SCH (20:20)
[2019-12-04] MEDS: ATORVASTATIN CALCIUM 40 MG TABLET. PO SCH (20:21)
[2019-12-05] VITALS (12 sets, daily range): BP systolic 96–125; BP diastolic 48–76
[2019-12-05] MEDS: PIPERACILLIN/TAZOBACTAM 4.5 GM in IV NORMAL SALINE 100ML 100 ML IV SCH ×5 (00:23→23:58)
[2019-12-05 06:19] LABS: CALCIUM 7.8 mg/dL (8.5-10.1); CREATININE 0.8 mg/dL (0.6-1.0); GFR 75.3; POTASSIUM 4.5 mmol/L (3.5-5.1)
[2019-12-05] MEDS ORDERED: PROCHLORPERAZINE 10 MG/2 ML VIAL. IV PRN (07:00)
[2019-12-05] MEDS ORDERED: LIDOCAINE 1% PF 2 ML VIAL. ID PRN (07:00)
[2019-12-05] MEDS ORDERED: IV RINGERS,LACTATED 1000ML 1,000 ML IV SCH (07:00)
[2019-12-05] MEDS: MORPHINE SULFATE 4 MG/ML VIAL. IV PRN (07:20)
[2019-12-05 07:31] LABS: BASO # 0.1 x10^3/uL (0.0-0.2); BASO % 1 % (0-3); EOS # 0.3 x10^3/uL (0.0-0.7); EOS % 3 % (0-3); HEMATOCRIT 22.6 % (36.0-47.0); HEMOGLOBIN 7.2 g/dL (12.0-15.5); LYMPH # 1.1 x10^3/uL (1.0-4.8); LYMPH % 10 % (24-48); MEAN CORPUSCULAR HEMOGLOBIN 26 pg (25-35); MEAN CORPUSCULAR HGB CONC 32 g/dL (31-37); MEAN CORPUSCULAR VOLUME 82 fL (79-100); MONO # 0.9 x10^3/uL (0.0-1.1); MONO % 9 % (0-9); NEUT # 8.4 x10^3/uL (1.8-7.7); NEUT % 78 % (31-73); PLATELET COUNT 545 x10^3/uL (140-400); RED BLOOD COUNT 2.77 x10^6/uL (3.50-5.40); WHITE BLOOD COUNT 10.8 x10^3/uL (4.0-11.0)
[2019-12-05] MEDS: CAPSAICIN 0.025% TOPICAL CREAM 60GM TUBE. TP SCH ×3 (09:00→20:43)
[2019-12-05] MEDS: APIXABAN 5 MG TABLET. PO SCH ×2 (09:00→20:43)
[2019-12-05] MEDS: GABAPENTIN 100 MG CAPSULE. PO SCH ×3 (09:00→20:42)
[2019-12-05] MEDS: SENNOSIDES/DOCUSATE 8.6/50MG TABLET. PO SCH (09:00)
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
[2019-12-05] MEDS ORDERED: fentaNYL PF VIAL 100 MCG/2 ML VIAL ONE ×2 (09:59→11:18)
[2019-12-05] MEDS ORDERED: BUPIVACAINE-EPI 0.5%-1:200000 MPF 30 ML VIAL. ONE (10:02)
[2019-12-05] MEDS ORDERED: IV NORMAL SALINE 1000ML BAG 1,000 ML IV SCH (10:30)
[2019-12-05] MEDS ORDERED: PROPOFOL 10 MG/ML (20ML) VIAL. IV ONE (10:38)
[2019-12-05] MEDS ORDERED: SEVOFLURANE 31 TO 60 MINUTES. IH ONE (10:38)
[2019-12-05] MEDS ORDERED: KETOROLAC 30 MG/ML VIAL. ONE (10:38)
[2019-12-05] MEDS ORDERED: DEXAMETHASONE SOD PHOS 4 MG/ML VIAL ONE (10:38)
[2019-12-05] MEDS ORDERED: ONDANSETRON PF 4 MG/2 ML VIAL. ONE (10:38)
[2019-12-05] MEDS ORDERED: LIDOCAINE 2% PF 5 ML VIAL. ONE (10:38)
--- NOTE | 2019-12-05 11:04 | PDOC4 ---
Operative Note Operative Note Date: 2019 at 1102 Preoperative diagnosis: Left lower extremity wound with abscess Postoperative diagnosis: Same Procedure: Debridement of wound sharp and placement of wound VAC Surgeon: Jitendra Specimen: None Dictation: Patient is a 54-year-old female morbidly obese who had an abscess cellulitis of her left lower extremity approximately a month ago had undergone debridement and wound VAC placement she comes back today with foul-smelling wo und elevated white count concern for infection of the wound. Procedure of wound debridement and placement of wound VAC was explained to the patient detail risk- benefit were also discussed occluding bleeding infection alternatives to this procedure also discussed with patient who seemed to understand and gave both verbal and written consent to have the procedure performed. Patient was taken to the operating room placed in the supine position general anesthesia was initiated once patient was sleeping intubated her leg was prepped and draped usual sterile fashion using Betadine scrub and solution. Was noted that there was a fairly large area of necrotic subcutaneous tissue on the inferior aspect of the wound this was debrided sharply using electrocautery right hemostasis there was an area on the inferior portion of the wound which appeared to be a abscess that tunneled to the deeper portion of the wound this was fully excised through the skin and subcutaneous tissue to completely unroofed this pocket of fluid which was suctioned clean and debridement of the deep subcutaneous tissue also was completed electrocautery was used to provide hemostasis once this was done the wound was irrigated and packed until the wound care team came to the room and placed wound VAC. Patient was awakened extubated operating room taken to recovery in stable condition all sponge instrument needle counts listed as correct estimated blood loss 50 mL. BLAINE OMNTIEL MD Dec 05, 2019 11:04
[2019-12-05] MEDS ORDERED: SEVOFLURANE 61 TO 120 MINUTES. IH ONE (11:10)
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
[2019-12-05] MEDS: TRIAMTERENE/HCTZ 37.5/25MG TABLET. PO SCH (12:54)
[2019-12-05] MEDS: NORTRIPTYLINE 25 MG CAPSULE PO SCH (12:54)
[2019-12-05] MEDS: VITAMIN B12,B9,B6 COMPLEX 1 TABLET. PO SCH (12:54)
[2019-12-05] MEDS: FAMOTIDINE 20 MG TABLET. PO SCH ×2 (12:54→20:42)
[2019-12-05] MEDS: FERROUS SULFATE 325 MG TABLET. PO SCH ×2 (12:54→17:40)
[2019-12-05] MEDS: ASCORBIC ACID 500 MG TABLET PO SCH ×2 (12:55→20:42)
[2019-12-05] MEDS: LEVOTHYROXINE 25 MCG TABLET. PO SCH (12:55)
[2019-12-05] MEDS: CITALOPRAM 20 MG TABLET. PO SCH (12:55)
--- NOTE | 2019-12-05 14:12 | NUR ---
SW following. Spoke with RN and reviewed chart. Spoke with pt who decline SNU and will discharge home with resumption of HH from [facility] at discharge. Coordinated care with Mitzi from [facility] today. Spoke with Dr. Casey and cultures are pending. Pt currently on IV abx but might discharge or oral abx. Pt to have IND today and wound vac. Pt will likely discharge on Tuesday, 12/06 per wound care. SW following.
[2019-12-05] MEDS: HYDROcodone/APAP 7.5/325MG 1 TAB TABLET PO PRN ×2 (15:07→23:22)
--- NOTE | 2019-12-05 16:08 | NUR ---
Wound/Ostomy Care Wound Type/Assessment: Patient seen in OR for wound vac placement after surgical debridement with Dr. Ham of left lateral lower leg wound. Orders for Veraflo vac placement. See wound assessment. Patient is well known to us from the wound clinic. The wound is measured and photographed. Skin prepped for vac placement, an ostomy ring applied to the татьяна-wound, 5 pieces of vac foam placed to wound with the tunnels at 1200, 1800, and 2000 packed along with the undermining from [id number]. The vac is tracked to the anterior leg, with the vac settings placed at 26mL instilled for 5 minutes every 4 hours. Treatment Recommendations/Plan: Veraflo vac Education provided: Patient sedated in OR. Offloading surface/device: N/A Recommended Referrals/Tests: N/A Discharge Recommendations for dressings: Continue current treatment and discharge with home vac therapy and patient will follow up with us in the wound clinic.
[2019-12-05] MEDS: MORPHINE ER 15 MG TABLET.ER PO SCH (20:43)
[2019-12-05] MEDS: LACTOBACILLUS RHAMNOSUS GG 1 CAPSULE. PO SCH (20:43)
[2019-12-05] MEDS: ATORVASTATIN CALCIUM 40 MG TABLET. PO SCH (20:44)
[2019-12-06] VITALS (11 sets, daily range): BP systolic 107–118; BP diastolic 44–67
[2019-12-06] MEDS: HYDROcodone/APAP 7.5/325MG 1 TAB TABLET PO PRN ×2 (03:20→14:42)
[2019-12-06 06:23] LABS: BASO % 0 % (0-3); EOS % 0 % (0-3); HEMATOCRIT 21.9 % (36.0-47.0); LYMPH # 0.9 x10^3/uL (1.0-4.8); LYMPH % 9 % (24-48); MEAN CORPUSCULAR HEMOGLOBIN 26 pg (25-35); MEAN CORPUSCULAR HGB CONC 32 g/dL (31-37); MEAN CORPUSCULAR VOLUME 83 fL (79-100); MONO # 0.8 x10^3/uL (0.0-1.1); MONO % 7 % (0-9); NEUT # 9.2 x10^3/uL (1.8-7.7); NEUT % 84 % (31-73); PLATELET COUNT 534 x10^3/uL (140-400); RED BLOOD COUNT 2.65 x10^6/uL (3.50-5.40); RED CELL DISTRIBUTION WIDTH 18.7 % (11.5-14.5)
[2019-12-06] MEDS: PIPERACILLIN/TAZOBACTAM 4.5 GM in IV NORMAL SALINE 100ML 100 ML IV SCH ×4 (06:24→23:50)
[2019-12-06] MEDS: LEVOTHYROXINE 25 MCG TABLET. PO SCH (06:24)
[2019-12-06 06:46] LABS: CALCIUM 7.7 mg/dL (8.5-10.1); CREATININE 0.9 mg/dL (0.6-1.0); GFR 65.8; HEMOGLOBIN 6.9 g/dL (12.0-15.5); POTASSIUM 4.5 mmol/L (3.5-5.1)
[2019-12-06] MEDS: TRIAMTERENE/HCTZ 37.5/25MG TABLET. PO SCH (08:31)
[2019-12-06] MEDS: NORTRIPTYLINE 25 MG CAPSULE PO SCH (08:31)
[2019-12-06] MEDS: VITAMIN B12,B9,B6 COMPLEX 1 TABLET. PO SCH (08:31)
[2019-12-06] MEDS: SENNOSIDES/DOCUSATE 8.6/50MG TABLET. PO SCH (08:31)
[2019-12-06] MEDS: GABAPENTIN 100 MG CAPSULE. PO SCH ×3 (08:32→21:06)
[2019-12-06] MEDS: LACTOBACILLUS RHAMNOSUS GG 1 CAPSULE. PO SCH ×2 (08:32→21:06)
[2019-12-06] MEDS: CITALOPRAM 20 MG TABLET. PO SCH (08:32)
[2019-12-06] MEDS: ASCORBIC ACID 500 MG TABLET PO SCH ×2 (08:32→21:07)
[2019-12-06] MEDS: FERROUS SULFATE 325 MG TABLET. PO SCH ×2 (08:32→18:03)
[2019-12-06] MEDS: FAMOTIDINE 20 MG TABLET. PO SCH ×2 (08:32→21:06)
[2019-12-06] MEDS: CAPSAICIN 0.025% TOPICAL CREAM 60GM TUBE. TP SCH ×3 (08:34→22:13)
--- NOTE | 2019-12-06 08:44 | PDOC ---
SURGICAL PROGRESS NOTE DATE: 12/06/19 TIME: 08:44 Subjective resting wanting to go home Vital Signs Vital Signs Date Time Temp Pulse Resp B/P (MAP) Pulse Ox O2 Delivery O2 Flow Rate FiO2 12/06/19 07:37 Room Air 12/06/19 07:00 97.5 68 19 117/55 (75) 98 97.5 12/05/19 20:43 3.0 I&O Intake and Output 12/06/19 07:00 Intake Total 700 ml Output Total 50 ml Balance 650 ml IV Total 700 ml Output Urine Total 0 ml Estimated Blood Loss 50 ml # Voids 2 # Bowel Movements 2 General: Alert, Oriented X3, Cooperative Skin: Other (vac in place) Labs Laboratory Tests Test 12/04/19 08:55 12/04/19 14:45 12/05/19 04:32 12/05/19 07:15 White Blood Count 10.3 x10^3/uL (4.0-11.0) 10.8 x10^3/uL (4.0-11.0) Red Blood Count 2.55 x10^6/uL (3.50-5.40) 2.77 x10^6/uL (3.50-5.40) Hemoglobin 6.7 g/dL (12.0-15.5) 7.2 g/dL (12.0-15.5) Hematocrit 20.8 % (36.0-47.0) 22.6 % (36.0-47.0) Mean Corpuscular Volume 82 fL (79-100) 82 fL (79-100) Mean Corpuscular Hemoglobin 26 pg (25-35) 26 pg (25-35) Mean Corpuscular Hemoglobin Concent 32 g/dL (31-37) 32 g/dL (31-37) Red Cell Distribution Width 19.1 % (11.5-14.5) 19.0 % (11.5-14.5) Platelet Count 530 x10^3/uL (140-400) 545 x10^3/uL (140-400) Neutrophils (%) (Auto) 74 % (31-73) 78 % (31-73) Lymphocytes (%) (Auto) 14 % (24-48) 10 % (24-48) Monocytes (%) (Auto) 9 % (0-9) 9 % (0-9) Eosinophils (%) (Auto) 3 % (0-3) 3 % (0-3) Basophils (%) (Auto) 0 % (0-3) 1 % (0-3) Neutrophils # (Auto) 7.7 x10^3/uL (1.8-7.7) 8.4 x10^3/uL (1.8-7.7) Lymphocytes # (Auto) 1.4 x10^3/uL (1.0-4.8) 1.1 x10^3/uL (1.0-4.8) Monocytes # (Auto) 0.9 x10^3/uL (0.0-1.1) 0.9 x10^3/uL (0.0-1.1) Eosinophils # (Auto) 0.3 x10^3/uL (0.0-0.7) 0.3 x10^3/uL (0.0-0.7) Basophils # (Auto) 0.0 x10^3/uL (0.0-0.2) 0.1 x10^3/uL (0.0-0.2) Coronavirus (PCR) Not detected (Not Detected) SARS-CoV-2 Antigen (Rapid) Negative (NEGATIVE) Sodium Level 133 mmol/L (136-145) Potassium Level 4.5 mmol/L (3.5-5.1) Chloride Level 99 mmol/L (98-107) Carbon Dioxide Level 24 mmol/L (21-32) Anion Gap 10 (6-14) Blood Urea Nitrogen 9 mg/dL (7-20) Creatinine 0.8 mg/dL (0.6-1.0) Estimated GFR (Cockcroft-Gault) 75.3 Glucose Level 95 mg/dL (70-99) Calcium Level 7.8 mg/dL (8.5-10.1) Test 12/06/19 04:00 White Blood Count 11.0 x10^3/uL (4.0-11.0) Red Blood Count 2.65 x10^6/uL (3.50-5.40) Hemoglobin 6.9 g/dL (12.0-15.5) Hematocrit 21.9 % (36.0-47.0) Mean Corpuscular Volume 83 fL (79-100) Mean Corpuscular Hemoglobin 26 pg (25-35) Mean Corpuscular Hemoglobin Concent 32 g/dL (31-37) Red Cell Distribution Width 18.7 % (11.5-14.5) Platelet Count 534 x10^3/uL (140-400) Neutrophils (%) (Auto) 84 % (31-73) Lymphocytes (%) (Auto) 9 % (24-48) Monocytes (%) (Auto) 7 % (0-9) Eosinophils (%) (Auto) 0 % (0-3) Basophils (%) (Auto) 0 % (0-3) Neutrophils # (Auto) 9.2 x10^3/uL (1.8-7.7) Lymphocytes # (Auto) 0.9 x10^3/uL (1.0-4.8) Monocytes # (Auto) 0.8 x10^3/uL (0.0-1.1) Eosinophils # (Auto) 0.0 x10^3/uL (0.0-0.7) Basophils # (Auto) 0.0 x10^3/uL (0.0-0.2) Sodium Level 137 mmol/L (136-145) Potassium Level 4.5 mmol/L (3.5-5.1) Chloride Level 102 mmol/L (98-107) Carbon Dioxide Level 26 mmol/L (21-32) Anion Gap 9 (6-14) Blood Urea Nitrogen 11 mg/dL (7-20) Creatinine 0.9 mg/dL (0.6-1.0) Estimated GFR (Cockcroft-Gault) 65.8 Glucose Level 145 mg/dL (70-99) Calcium Level 7.7 mg/dL (8.5-10.1) Laboratory Tests Test 12/06/19 04:00 White Blood Count 11.0 x10^3/uL (4.0-11.0) Red Blood Count 2.65 x10^6/uL (3.50-5.40) Hemoglobin 6.9 g/dL (12.0-15.5) Hematocrit 21.9 % (36.0-47.0) Mean Corpuscular Volume 83 fL (79-100) Mean Corpuscular Hemoglobin 26 pg (25-35) Mean Corpuscular Hemoglobin Concent 32 g/dL (31-37) Red Cell Distribution Width 18.7 % (11.5-14.5) Platelet Count 534 x10^3/uL (140-400) Neutrophils (%) (Auto) 84 % (31-73) Lymphocytes (%) (Auto) 9 % (24-48) Monocytes (%) (Auto) 7 % (0-9) Eosinophils (%) (Auto) 0 % (0-3) Basophils (%) (Auto) 0 % (0-3) Neutrophils # (Auto) 9.2 x10^3/uL (1.8-7.7) Lymphocytes # (Auto) 0.9 x10^3/uL (1.0-4.8) Monocytes # (Auto) 0.8 x10^3/uL (0.0-1.1) Eosinophils # (Auto) 0.0 x10^3/uL (0.0-0.7) Basophils # (Auto) 0.0 x10^3/uL (0.0-0.2) Sodium Level 137 mmol/L (136-145) Potassium Level 4.5 mmol/L (3.5-5.1) Chloride Level 102 mmol/L (98-107) Carbon Dioxide Level 26 mmol/L (21-32) Anion Gap 9 (6-14) Blood Urea Nitrogen 11 mg/dL (7-20) Creatinine 0.9 mg/dL (0.6-1.0) Estimated GFR (Cockcroft-Gault) 65.8 Glucose Level 145 mg/dL (70-99) Calcium Level 7.7 mg/dL (8.5-10.1) Problem List Problems Medical Problems: (1) Wound infection Status: Acute Assessment/Plan continue wound care will be available as needed Justicifation of Admission Dx: Justifications for Admission: Justification of Admission Dx: Yes Cellulitis: Cellulitis 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
[2019-12-06] MEDS: APIXABAN 5 MG TABLET. PO SCH ×2 (09:07→21:07)
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
--- NOTE | 2019-12-06 13:03 | PDOC ---
[employer] PROGRESS NOTE Date of Service DOS: DATE: 12/06/19 TIME: 13:00 Chief Complaint Chief Complaint Leg wound History of Present Illness History of Present Illness 12/06/2019 Pt seen and examined. OSIEL RN and CM. Pt notes improvement with wound vac in place. 12/05/2019 Patient seen and examined Discussed with case management Discussed with RN Patient is scheduled for incision and drainage of the left lower extremity today She is also going get a wound VAC The plan is to continue Rocephin and Zyvox and get her to senior living possibly Vitals/I&O Vitals/I&O: Vital Signs Date Time Temp Pulse Resp B/P (MAP) Pulse Ox O2 Delivery O2 Flow Rate FiO2 12/06/19 11:50 97.6 69 17 118/58 97.6 12/06/19 10:42 96 Room Air 12/05/19 20:43 3.0 I & O 12/05/19 12/05/19 12/06/19 15:00 23:00 07:00 Intake Total 700 ml Output Total 50 ml 0 ml Balance 650 ml 0 ml Physical Exam General: Alert, Oriented X3, Cooperative Heart: Regular rate, Normal S1, Normal S2 Lungs: Clear Abdomen: Soft, No tenderness Extremities: Other (Lower extremity swelling noted. ) Skin: Other (Wound vac in place to lateral LLE. No erythema. ) Labs Labs: Laboratory Tests Test 12/06/19 04:00 White Blood Count 11.0 x10^3/uL (4.0-11.0) Red Blood Count 2.65 x10^6/uL (3.50-5.40) Hemoglobin 6.9 g/dL (12.0-15.5) Hematocrit 21.9 % (36.0-47.0) Mean Corpuscular Volume 83 fL (79-100) Mean Corpuscular Hemoglobin 26 pg (25-35) Mean Corpuscular Hemoglobin Concent 32 g/dL (31-37) Red Cell Distribution Width 18.7 % (11.5-14.5) Platelet Count 534 x10^3/uL (140-400) Neutrophils (%) (Auto) 84 % (31-73) Lymphocytes (%) (Auto) 9 % (24-48) Monocytes (%) (Auto) 7 % (0-9) Eosinophils (%) (Auto) 0 % (0-3) Basophils (%) (Auto) 0 % (0-3) Neutrophils # (Auto) 9.2 x10^3/uL (1.8-7.7) Lymphocytes # (Auto) 0.9 x10^3/uL (1.0-4.8) Monocytes # (Auto) 0.8 x10^3/uL (0.0-1.1) Eosinophils # (Auto) 0.0 x10^3/uL (0.0-0.7) Basophils # (Auto) 0.0 x10^3/uL (0.0-0.2) Sodium Level 137 mmol/L (136-145) Potassium Level 4.5 mmol/L (3.5-5.1) Chloride Level 102 mmol/L (98-107) Carbon Dioxide Level 26 mmol/L (21-32) Anion Gap 9 (6-14) Blood Urea Nitrogen 11 mg/dL (7-20) Creatinine 0.9 mg/dL (0.6-1.0) Estimated GFR (Cockcroft-Gault) 65.8 Glucose Level 145 mg/dL (70-99) Calcium Level 7.7 mg/dL (8.5-10.1) Assessment and Plan Assessmemt and Plan Problems Medical Problems: (1) Wound infection Status: Acute Assessment: Wound to left lower extremity. Morbid obesity. Hx MRSA. Plan: IV Abx. Wound Care. Home meds. DVT prophalysis. PT OT Transfusion. DC pending. Comment Review of Relevant I have reviewed the following items alejandro (where applicable) has been applied. Medications: Current Medications Medications (Trade) Dose Ordered Sig/Madeline Route PRN Reason Start Time Stop Time Status Last Admin Dose Admin Lactobacillus Rhamnosus (Culturelle) 1 cap BID PO 12/05/19 21:00 12/06/19 08:32 Justifications for Admission Other Justification CONRADO SMITH III DO Dec 06, 2019 13:03
--- NOTE | 2019-12-06 16:28 | NUR ---
BAYRON barrett. Spoke with RN and reviewed chart. Spoke with Dr. Casey and the plan is for pt to discharge on oral abx. Pt will have HH from [facility] on discharge. Update to [facility] with [facility]. Addendum: 12/07/19 at 0932 by REINA VERMA Pt transferred to Hilary Ruiz LMSW to follow.
[2019-12-06] MEDS: ATORVASTATIN CALCIUM 40 MG TABLET. PO SCH (21:06)
[2019-12-06] MEDS: MORPHINE ER 15 MG TABLET.ER PO SCH (21:07)
[2019-12-06] MEDS: MORPHINE SULFATE 4 MG/ML VIAL. IV PRN (23:47)
[2019-12-07 03:02] VITALS: BP 104/60
[2019-12-07] MEDS: MORPHINE SULFATE 4 MG/ML VIAL. IV PRN (04:50)
[2019-12-07] MEDS: LEVOTHYROXINE 25 MCG TABLET. PO SCH (05:35)
[2019-12-07] MEDS: PIPERACILLIN/TAZOBACTAM 4.5 GM in IV NORMAL SALINE 100ML 100 ML IV SCH ×2 (05:35→10:21)
[2019-12-07] MEDS: HYDROcodone/APAP 7.5/325MG 1 TAB TABLET PO PRN ×2 (05:40→12:16)
[2019-12-07 06:45] LABS: BASO # 0.1 x10^3/uL (0.0-0.2); BASO % 1 % (0-3); EOS # 0.4 x10^3/uL (0.0-0.7); EOS % 4 % (0-3); HEMATOCRIT 23.5 % (36.0-47.0); HEMOGLOBIN 7.4 g/dL (12.0-15.5); LYMPH # 1.7 x10^3/uL (1.0-4.8); LYMPH % 18 % (24-48); MEAN CORPUSCULAR HEMOGLOBIN 26 pg (25-35); MEAN CORPUSCULAR HGB CONC 31 g/dL (31-37); MEAN CORPUSCULAR VOLUME 84 fL (79-100); MONO # 0.6 x10^3/uL (0.0-1.1); MONO % 7 % (0-9); NEUT # 6.8 x10^3/uL (1.8-7.7); NEUT % 72 % (31-73); PLATELET COUNT 541 x10^3/uL (140-400); RED BLOOD COUNT 2.79 x10^6/uL (3.50-5.40); RED CELL DISTRIBUTION WIDTH 18.9 % (11.5-14.5); WHITE BLOOD COUNT 9.5 x10^3/uL (4.0-11.0)
[2019-12-07 06:48] LABS: CALCIUM 7.7 mg/dL (8.5-10.1); CREATININE 0.8 mg/dL (0.6-1.0); GFR 75.3; POTASSIUM 4.1 mmol/L (3.5-5.1)
[2019-12-07 07:00] VITALS: BP 105/47
[2019-12-07] MEDS: APIXABAN 5 MG TABLET. PO SCH (08:06)
[2019-12-07] MEDS: FAMOTIDINE 20 MG TABLET. PO SCH (08:06)
[2019-12-07] MEDS: GABAPENTIN 100 MG CAPSULE. PO SCH ×2 (08:06→12:15)
[2019-12-07] MEDS: ASCORBIC ACID 500 MG TABLET PO SCH (08:06)
[2019-12-07] MEDS: LACTOBACILLUS RHAMNOSUS GG 1 CAPSULE. PO SCH (08:06)
[2019-12-07] MEDS: FERROUS SULFATE 325 MG TABLET. PO SCH (08:06)
[2019-12-07] MEDS: VITAMIN B12,B9,B6 COMPLEX 1 TABLET. PO SCH (08:06)
[2019-12-07] MEDS: CITALOPRAM 20 MG TABLET. PO SCH (08:06)
[2019-12-07] MEDS: TRIAMTERENE/HCTZ 37.5/25MG TABLET. PO SCH (08:06)
[2019-12-07] MEDS: SENNOSIDES/DOCUSATE 8.6/50MG TABLET. PO SCH (08:06)
[2019-12-07] MEDS: NORTRIPTYLINE 25 MG CAPSULE PO SCH (08:06)
[2019-12-07] MEDS: CAPSAICIN 0.025% TOPICAL CREAM 60GM TUBE. TP SCH ×2 (08:08→12:16)
--- NOTE | 2019-12-07 09:55 | NUR ---
SW following. Discussed with RN, pt transferred from . Plan is for pt to discharge home with [facility]. Wound care to see pt today to swap wound vac. Dr. Capps anticipating discharge home today. SW will continue to follow.
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
[2019-12-07 11:00] VITALS: BP 100/58
--- NOTE | 2019-12-07 11:31 | PDOC ---
[employer] PROGRESS NOTE Date of Service DOS: DATE: 12/07/19 TIME: 11:28 Chief Complaint Chief Complaint Leg wound History of Present Illness History of Present Illness 12/07/2019 Patient seen, NAD. Discussed with RN. Discussed with case management. 12/06/2019 Pt seen and examined. OSIEL RN and CM. Pt notes improvement with wound vac in place. 12/05/2019 Patient seen and examined Discussed with case management Discussed with RN Patient is scheduled for incision and drainage of the left lower extremity today She is also going get a wound VAC The plan is to continue Rocephin and Zyvox and get her to residential possibly Vitals/I&O Vitals/I&O: Vital Signs Date Time Temp Pulse Resp B/P (MAP) Pulse Ox O2 Delivery O2 Flow Rate FiO2 12/07/19 11:00 97.9 89 16 100/58 (72) 95 Room Air 97.9 I & O 12/06/19 12/06/19 12/07/19 15:00 23:00 07:00 Intake Total 1325 ml 300 ml 240 ml Balance 1325 ml 300 ml 240 ml Physical Exam Physical Exam: GENERAL: Alert, oriented female, not in distress. VITAL SIGNS: Stable and afebrile. HEENT: NAD. NECK: Supple, no JVP. No lymphadenopathy. LUNGS: Clear. HEART: S1 and S2 regular. ABDOMEN: Soft, nontender, no organomegaly. EXTREMITIES: No edema or cyanosis. SKIN: Unremarkable except left leg has erythema. The patient does have a large deep wound with about 70% of the tissue is healthy red granulation, but about 20-30% of the necrotic tissue with foul smell to it. There is no current active bleeding right now and the surrounding area is erythema, may have been chronic with stasis dermatitis. NEUROLOGIC: The patient is alert, awake, and appropriate. No focal neurologic deficit. General: Alert, Oriented X3, Cooperative Heart: Regular rate, Normal S1, Normal S2 Lungs: Clear Abdomen: Soft, No tenderness Extremities: Other (Lower extremity swelling noted. ) Skin: Other (Wound vac in place to lateral LLE. No erythema. ) Labs Labs: Laboratory Tests Test 12/07/19 05:20 White Blood Count 9.5 x10^3/uL (4.0-11.0) Red Blood Count 2.79 x10^6/uL (3.50-5.40) Hemoglobin 7.4 g/dL (12.0-15.5) Hematocrit 23.5 % (36.0-47.0) Mean Corpuscular Volume 84 fL (79-100) Mean Corpuscular Hemoglobin 26 pg (25-35) Mean Corpuscular Hemoglobin Concent 31 g/dL (31-37) Red Cell Distribution Width 18.9 % (11.5-14.5) Platelet Count 541 x10^3/uL (140-400) Neutrophils (%) (Auto) 72 % (31-73) Lymphocytes (%) (Auto) 18 % (24-48) Monocytes (%) (Auto) 7 % (0-9) Eosinophils (%) (Auto) 4 % (0-3) Basophils (%) (Auto) 1 % (0-3) Neutrophils # (Auto) 6.8 x10^3/uL (1.8-7.7) Lymphocytes # (Auto) 1.7 x10^3/uL (1.0-4.8) Monocytes # (Auto) 0.6 x10^3/uL (0.0-1.1) Eosinophils # (Auto) 0.4 x10^3/uL (0.0-0.7) Basophils # (Auto) 0.1 x10^3/uL (0.0-0.2) Sodium Level 137 mmol/L (136-145) Potassium Level 4.1 mmol/L (3.5-5.1) Chloride Level 103 mmol/L (98-107) Carbon Dioxide Level 27 mmol/L (21-32) Anion Gap 7 (6-14) Blood Urea Nitrogen 16 mg/dL (7-20) Creatinine 0.8 mg/dL (0.6-1.0) Estimated GFR (Cockcroft-Gault) 75.3 Glucose Level 94 mg/dL (70-99) Calcium Level 7.7 mg/dL (8.5-10.1) Review of Systems Review of Systems: Denies SOB. Denies N/V. Assessment and Plan Assessmemt and Plan Problems Medical Problems: (1) Wound infection Status: Acute Assessment: 1) LLE wound 2) Morbid obesity 3) Hx MRSA Plan: Continue IV Abx. Continue wound Care. Continue Home meds. DVT prophalysis. PT, OT. D/C today with home health. Comment Review of Relevant I have reviewed the following items alejandro (where applicable) has been applied. Justifications for Admission Other Justification CONRADO SMITH III DO Dec 07, 2019 11:31
[2019-12-07] MEDS ORDERED: LACT1CAP19 PO (11:48)
--- NOTE | 2019-12-07 11:50 | SNU/HH DC ---
DISCHARGE WITH HOME HEALTH DISCHARGE INFORMATION: Final Diagnosis: Problems Medical Problems: (1) Wound infection Status: Acute Condition on Discharge: Stable CODE STATUS: Code Status: Full HOME HEALTH: Face to Face: I certify this patient is under my care and that I, or a nurse practitioner or physician's clinical trials assistant working with me, had a face to face encounter that meets the physician face to face encounter requirements with this patient on []. Medical Complications: Other (Recent leg wound with wound VAC) Snf For: Assess & Educate Safety RN For Eval/Treatment: Yes Physical Therapy For: Evalulation/Treatment Occupational Therapy For: Evaluation/Treatment Home Health Aide For: Self-care [employer]ING [employer] LEADER For: Community Resources Pt Meets Homebound Status: Unsteady balance w/ amb, POST DISCHARGE ORDERS: DIET AFTER DISCHARGE: Cardiac CERTIFICATION STATEMENT: Certification Statement: Certification Statement: Based on the above finding, I certify that this patient is confined to the home and needs intermittent nursing home care, physical therapy and/or speech therapy, or continues to need occupational therapy.~ This patient is under my care, and I have initiated the establishment of the plan of care.~ This patient will be followed by myself or a community physician who will periodically review the plan of care. Home Meds Active Scripts Lactobacillus Rhamnosus Gg (CULTURELLE) 1 Each Cap.sprink, 1 CAP PO BID for . for 30 Days, #60 CAP Prov:CONRADO SMITH III DO 12/07/19 Apixaban (ELIQUIS) 5 Mg Tablet, 5 MG PO BID for prevent DVT, #30 TAB Prov:MIREILLE HOPE MD 11/02/19 Hydrocodone Bit/Acetaminophen (HYDROCODONE-APAP 7.5-325 ) 1 Tab Tablet, 1 TAB PO PRN Q4HRS PRN for PAIN, #45 TAB Prov:MIREILLE HOPE MD 11/02/19 Morphine Sulfate Er (MS CONTIN) 15 Mg Tablet.er, 1 TAB PO HS for pain MDD 2 Tablet(s) for 15 Days, #15 TAB 0 Refills Prov:MIREILLE HOPE MD 11/02/19 Cyanocobalamin/Fa/Pyridoxine (FOLBIC TABLET) 1 Each Tablet, 1 TAB PO DAILY for vitamin, #30 TAB Prov:MIREILLE HOPE MD 11/02/19 Gabapentin (GABAPENTIN ) 100 Mg Capsule, 200 MG PO TID for pain, #90 CAP Prov:MIREILLE HOPE MD 11/02/19 Orphenadrine Citrate (ORPHENADRINE CITRATE) 100 Mg Tablet.er, 100 MG PO BID PRN for MUSCLE PAIN for 5 Days, #10 TAB.SR Prov:MARITA CHAVEZ APRN 06/21/19 Reported Medications Capsaicin (CAPSAICIN) 42.5 Gm Cream..g., 42.5 GM TP TID for wound, EACH 12/03/19 Calcium Carbonate (TUMS) 200 Mg Tab.chew, 200 MG PO PRN Q6HRS PRN for HEARTBURN / GAS, TAB.CHEW 12/03/19 Ascorbic Acid (VITAMIN C) 500 Mg Capsule.er, 1 CAP PO BID for supplement for 30 Days, #60 CAP 0 Refills 12/03/19 Ferrous Sulfate (FERROUS SULFATE) 325 Mg Tablet, 1 TAB PO BID for anemia, #60 TAB 3 Refills 12/03/19 Sennosides/Docusate Sodium (SENNA PLUS TABLET) 1 Each Tablet, 1 TAB PO DAILY for constipation for 20 Days, #20 TAB 0 Refills 10/24/19 Ergocalciferol (Vitamin D2) (Vitamin D2) 1,250 Mcg Capsule, 1250 MCG PO WEEKLY for vitamin, CAP 10/24/19 Famotidine (FAMOTIDINE) 20 Mg Tablet, 20 MG PO BID for gerd, TAB 10/24/19 Rosuvastatin Calcium (CRESTOR) 40 Mg Tablet, 20 MG PO HS for FOR CHOLESTEROL, #30 TAB 0 Refills 10/24/19 Levothyroxine Sodium (LEVOTHYROXINE SODIUM) 25 Mcg Tablet, 1 TAB PO DAILY for thyroid 10/24/19 Nortriptyline Hcl (NORTRIPTYLINE HCL) 25 Mg Capsule, 1 CAP PO DAILY for d epression 10/24/19 Citalopram Hydrobromide (CITALOPRAM HBR) 40 Mg Tablet, 1 TAB PO DAILY for depression 10/24/19 Triamterene/Hydrochlorothiazid (TRIAMTERENE-HCTZ 37.5-25 MG TB) 1 Each Tablet, 1 TAB PO DAILY for bp 10/24/19 Rosuvastatin Calcium (Rosuvastatin Calcium) 20 Mg Tablet, 20 MG PO QHS for HLD for 30 Days, #30 2 Refills 10/23/19 Discontinued Reported Medications Clindamycin Hcl (CLINDAMYCIN HCL) 300 Mg Capsule, 300 MG PO QID for wound, CAP 12/03/19 CONRADO SMITH III DO Dec 07, 2019 11:49
[2019-12-07 15:00] VITALS: BP 101/59
--- NOTE | 2019-12-07 15:44 | NUR ---
Wound/Ostomy Care Wound Type/Assessment: Patient seen per wound care for wound vac dressing change prior to discharge. See wound assessment. patient is well known to us from the clinic. Dressing removed with all 5 pieces of vac foam accounted for. Wound cleansed, assessed, measured, and photographed. Treatment Recommendations/Plan: Skin prepped for wound vac placement, and 9 pieces of vac foam placed into wound bed and undermining areas. A good seal maintained at 125mmHg continuous. The patient is going home with home vac and home health from last admission. Home vac attached to patient at this time since patient is discharging. Patient will follow up with us in the wound clinic. Education provided: Dressing changes and vac therapy. Offloading surface/device: Bariatric bed Recommended Referrals/Tests: N/A Discharge Recommendations for dressings: Continue with current treatment plan. Patient will follow up with us in the wound clinic next week. Patient also has a healing Stage III to coccyx which was there from last admission, calazime applied. Bed lowered and call light in reach.
--- NOTE | 2019-12-07 17:25 | NUR ---
Discharge Note: PAULINA CRISTINA [address] Discharge instructions and discharge home medications reviewed with Patient and a copy given. All questions have been answered and understanding verbalized. The following instructions and handouts were given: information about follow up appointments, medications, wound care, etc. Called in zyvox and cipro to [facility]. Discontinued lines and drains: IV line in left AC removed, catheter tip intact. Patient discharged to home with home health with family member, wheelchair used for mobility to discharge vehicle.
--- NOTE | 2019-12-09 13:26 | DS ---
DATE OF DISCHARGE: 12/07/2019 ADMISSION DIAGNOSIS: Left lower extremity wound infection. DISCHARGE DIAGNOSES: Postoperative incision and drainage and placement of wound VAC to the left lower extremity. HOSPITAL COURSE: The patient is a pleasant 54-year-old female who is morbidly obese. She basically has a chronic wound on the left lower leg. She was admitted. We gave her IV antibiotics. She was taken to the OR for debridement and placement of the wound VAC. Postoperatively, she did well. We discharged to home with close outpatient followup. DISPOSITION: Home. ACTIVITY: As tolerated. DIET: Low sodium. MEDICATIONS: Please see the MRAD. TOTAL TIME: 34 minutes. CONRADO SMITH DO DR: SONIA/js JOB#: [id number] / [id number]
[2019-12-10] MEDS ORDERED: ERGOCALCIFEROL (VITAMIN D2) 50,000 UNIT CAPSULE. PO SCH (09:00)
== END 2019-12-07 17:25 | disposition home health service (06) | DRG 853 ==
LOC: ER 07:27 → ED HOLD 09:18 → 5 NORTH 14:30 → 4 NORTH 12-06 19:48
PROVIDERS: ADMIT Internal Medicine; ATTEND Internal Medicine
PROC: 30233N1 Transfusion of Nonautologous Red Blood Cells into Peripheral Vein, Percutaneous Approach (ICD-10-PCS; 2019-12-03)
PROC: 0JBP0ZZ Excision of Left Lower Leg Subcutaneous Tissue and Fascia, Open Approach (ICD-10-PCS; principal; 2019-12-05 10:30)
DX: A41.9 Sepsis, unspecified organism (principal); E43 Unspecified severe protein-calorie malnutrition; E87.1 Hypo-osmolality and hyponatremia; Z68.45 Body mass index [BMI] 70 or greater, adult; L03.116 Cellulitis of left lower limb; D64.9 Anemia, unspecified; E03.9 Hypothyroidism, unspecified; E66.01 Morbid (severe) obesity due to excess calories; E78.00 Pure hypercholesterolemia, unspecified; E78.5 Hyperlipidemia, unspecified; I10 Essential (primary) hypertension; Y92.410 Unspecified street and highway as the place of occurrence of the external cause; Z82.49 Family history of ischemic heart disease and other diseases of the circulatory system; Z83.3 Family history of diabetes mellitus; Z86.14 Personal history of Methicillin resistant Staphylococcus aureus infection; Z87.442 Personal history of urinary calculi; E66.9 Obesity, unspecified; F32.9 Major depressive disorder, single episode, unspecified; F41.9 Anxiety disorder, unspecified; G89.29 Other chronic pain; K21.9 Gastro-esophageal reflux disease without esophagitis; Z20.828 Contact with and (suspected) exposure to other viral communicable diseases; Z88.8 Allergy status to other drugs, medicaments and biological substances
CPT/HCPCS: 36415; 80048; 80053; 83605; 85025; 86850; 86900; 86901; 86920; 87040; 87426; 96374; 96375; 99285; J0696; J1100; J1885; J2020; J2270; J2405; J2543; J2704; J3010; J7120; P9016; A4461; G0378; U0003-CS

== ENCOUNTER 2019-12-10 17:42 | Emergency (ER) | payer OTHER ==
[~2019-12-10] VITALS: Ht 152.4 cm; Wt 200.0 kg
[~2019-12-10 17:42] MED LIST changes: +ASCO500C PO; +CALC200T3 PO; +CAPS42.514 TP; +CLIN300C8 PO; +FERR325T14 PO; +LACT1CAP19 PO
[2019-12-10 18:41] VITALS: BP 134/62
[2019-12-10] MEDS ORDERED: HYDROcodone/APAP 5/325MG 1 TAB TABLET PO ONE (19:15)
[2019-12-10] MEDS ORDERED: MORPHINE SULFATE 10 MG/ML VIAL. IM ONE (20:00)
[2019-12-10] MEDS ORDERED: KETOROLAC 60 MG/2 ML VIAL. ONE (20:42)
[2019-12-10] MEDS ORDERED: KETOROLAC 60 MG/2 ML VIAL. IM ONE (20:45)
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
== END 2019-12-10 21:23 | disposition home or self-care (01) ==
LOC: ER 17:42
DX: S81.802A Unspecified open wound, left lower leg, initial encounter (principal); L02.416 Cutaneous abscess of left lower limb; L03.116 Cellulitis of left lower limb; K21.9 Gastro-esophageal reflux disease without esophagitis; E78.00 Pure hypercholesterolemia, unspecified; E03.9 Hypothyroidism, unspecified; G89.29 Other chronic pain; E66.01 Morbid (severe) obesity due to excess calories; Z87.442 Personal history of urinary calculi; Z68.45 Body mass index [BMI] 70 or greater, adult; Z88.8 Allergy status to other drugs, medicaments and biological substances; X58.XXXA Exposure to other specified factors, initial encounter; Y93.89 Activity, other specified; Y92.89 Other specified places as the place of occurrence of the external cause; Y99.8 Other external cause status
CPT/HCPCS: 96372; 99284; J1885

== ENCOUNTER → 2020-01-15 | Outpatient (CLI) | payer OTHER ==
[~2020-01-15] VITALS: Ht 170.2 cm; Wt 199.6 kg
[~2020-01-15] MED LIST changes: +ALPR0.5T6 PO; +BUPR150T15 PO; +CHOL500050 PO; +LACT1CAP29 PO; +SODI473S25 MC; +SULF1TAB24 PO
[2020-01-15 09:17] VITALS: BP 140/91
--- NOTE | 2020-01-17 11:22 | RAD ---
Limited ultrasound evaluation of distal left lower extremity for possible drain placement INDICATION: Ultrasound evaluation for possible subcutaneous fluid collection inferior to chronic left lower extremity wound Discussion: Ultrasound evaluation of the left lower extremity was performed. No significant subcutaneous fluid collection was identified inferior to the patient's left calf wound. Significant subcutaneous edema consistent with chronic lymphedema was seen throughout. Visualized venous structures were found to be patent. No drainable fluid collection was identified. IMPRESSION:. Limited ultrasound evaluation of the left lower extremity without evidence of drainable fluid collection.
== END ==
LOC: INTRAD 08:42
PROVIDERS: ATTEND Emergency Medicine Undersea and Hyperbaric Medicine
DX: I89.0 Lymphedema, not elsewhere classified (principal); I10 Essential (primary) hypertension; E03.9 Hypothyroidism, unspecified; E78.5 Hyperlipidemia, unspecified; K21.9 Gastro-esophageal reflux disease without esophagitis; F41.9 Anxiety disorder, unspecified; F32.9 Major depressive disorder, single episode, unspecified; E66.01 Morbid (severe) obesity due to excess calories; Z68.44 Body mass index [BMI] 60.0-69.9, adult; Z88.8 Allergy status to other drugs, medicaments and biological substances; Z79.899 Other long term (current) drug therapy; Z83.3 Family history of diabetes mellitus
CPT/HCPCS: 10030

== ENCOUNTER → 2020-02-07 | Outpatient (CLI) | payer OTHER ==
[2020-01-15 09:17] VITALS: BP 140/91
[2020-02-07 14:39] LABS: BILIRUBIN,URINE NEGATIVE (NEG); CLARITY,URINE CLEAR; COLOR,URINE YELLOW; NITRITE,URINE NEGATIVE (NEG); PH,URINE 5.5 (<5.0-8.0); PROTEIN,URINE NEGATIVE (NEG-TRACE); UROBILINOGEN,URINE 0.2 mg/dL (0.2 mg/dL)
[2020-02-07 14:50] LABS: BACTERIA,URINE FEW /HPF (0-FEW)
[2020-02-07 14:51] LABS: RBC,URINE 0 /HPF (0-2)
== END ==
LOC: SPEC 13:57
PROVIDERS: ATTEND Family Medicine
DX: R30.0 Dysuria (principal); N39.9 Disorder of urinary system, unspecified
CPT/HCPCS: 81001; 87086

== ENCOUNTER 2020-02-26 13:27 | Emergency (ER) | payer OTHER ==
[~2020-02-26] VITALS: Ht 167.6 cm; Wt 190.9 kg
[~2020-02-26 13:27] MED LIST changes: -CLIN300C8 PO; +CLIN300C9 PO
[2020-02-26] MEDS ORDERED: ONDANSETRON PF 4 MG/2 ML VIAL. IVP ONE (14:00)
[2020-02-26] MEDS ORDERED: IV NORMAL SALINE 1000ML BAG 1,000 ML IV SCH (14:00)
--- NOTE | 2020-02-26 14:03 | PHYS DOC ---
Past Medical History Past Medical History: Anxiety, Depression, GERD, High Cholesterol, Hypothyroid Additional Past Medical Histor: kidney stone chronic knee pain, MORBID OBESITY (JANINA HICKMAN APRN) Past Surgical History: Other Additional Past Surgical Histo: eye sx (JANINA HICKMAN APRN) Smoking Status: Never Smoker Alcohol Use: None Drug Use: None (JANINA HICKMAN APRN) General Adult EDM: Chief Complaint: ABDOMINAL PAIN HPI: HPI: Patient is a 54 year old female presents to the emergency room for evaluation of nausea, vomiting, and diarrhea that started around 11:00 this morning. She reports diffuse abdominal discomfort. She denies chest pain or shortness of air. No recent fever. (JANINA HICKMAN APRN) Review of Systems: Review of Systems: Constitutional: Denies fever or chills. [] Eyes: Denies change in visual acuity. [] HENT: Denies nasal congestion or sore throat. [] Respiratory: Denies cough or shortness of breath. [] Cardiovascular: Denies chest pain or edema. [] GI: REPORTS abdominal pain, nausea, vomiting, diarrhea. [] : Denies dysuria. [] Musculoskeletal: Denies back pain or joint pain. [] Integument: Denies rash. [] Neurologic: Denies headache, focal weakness or sensory changes. [] Endocrine: Denies polyuria or polydipsia. [] Lymphatic: Denies swollen glands. [] Psychiatric: Denies depression or anxiety. [] (JANINA HICKMAN APRN) Heart Score: Risk Factors: Risk Factors: DM, Current or recent (<one month) smoker, HTN, HLP, family history of CAD, obesity. Risk Scores: Score 0 - 3: 2.5% MACE over next 6 weeks - Discharge Home Score 4 - 6: 20.3% MACE over next 6 weeks - Admit for Clinical Observation Score 7 - 10: 72.7% MACE over next 6 weeks - Early Invasive Strategies (JANINA HICKMAN APRN) Current Medications: Current Medications Medications (Trade) Dose Ordered Sig/Madeline Start Time Stop Time Status Last Admin Dose Admin Morphine Sulfate (Morphine Sulfate) 4 mg PRN Q15MIN PRN 02/26/20 14:00 02/27/20 13:59 Ondansetron HCl (Zofran) 4 mg 1X ONCE 12/8/20 14:00 02/26/20 14:01 Sodium Chloride 1,000 ml @ 1,000 mls/hr Q1H 02/26/20 14:00 02/26/20 14:59 (JANINA HICKMAN APRN) Allergies: Allergies: Allergies Coded Allergies Type Severity Reaction Last Updated Verified I S O L A T I O N *CONTACT* Allergy Unknown 01/15/20 Yes amitriptyline HCl Adverse Reaction Intermediate 10/30/19 Yes Uncoded Allergies Type Severity Reaction Last Updated Verified red meat Adverse Reaction Mild GI upset 02/04/15 (JANINA HICKMAN APRN) Physical Exam: PE: Constitutional: Well developed, well nourished, no acute distress, non-toxic appearance. [] HENT: Normocephalic, atraumatic, bilateral external ears normal, oropharynx moist, no oral exudates, nose normal. [] Eyes: PERRLA, EOMI, conjunctiva normal, no discharge. [] Neck: Normal range of motion, no tenderness, supple, no stridor. [] Cardiovascular:Heart rate regular rhythm, no murmur [] Lungs & Thorax: Bilateral breath sounds clear to auscultation [] Abdomen: Bowel sounds normal, soft, no tenderness, no masses, no pulsatile masses. [] Skin: Warm, dry, no erythema, no rash. [] Back: No tenderness, no CVA tenderness. [] Extremities: No tenderness, no cyanosis, no clubbing, ROM intact, no edema. [] Neurologic: Alert and oriented X 3, normal motor function, normal sensory function, no focal deficits noted. [] Psychologic: Affect normal, judgement normal, mood normal. [] (JANINA HICKMAN APRN) Current Patient Data: Labs: Laboratory Tests Test 02/26/20 13:32 02/26/20 14:50 Urine Collection Type Unknown Urine Color Yellow Urine Clarity Clear Urine pH 5.5 Urine Specific Cumby 1.020 Urine Protein Negative mg/dL Urine Glucose (UA) Negative mg/dL Urine Ketones (Stick) Negative mg/dL Urine Blood Negative Urine Nitrite Negative Urine Bilirubin Negative Urine Urobilinogen Dipstick 0.2 mg/dL Urine Leukocyte Esterase Negative Urine RBC 0 /HPF Urine WBC Occ /HPF Urine Squamous Epithelial Cells Mod /LPF Urine Bacteria Few /HPF Urine Mucus Mod /LPF White Blood Count 11.8 x10^3/uL Red Blood Count 4.21 x10^6/uL Hemoglobin 11.3 g/dL Hematocrit 35.6 % Mean Corpuscular Volume 84 fL Mean Corpuscular Hemoglobin 27 pg Mean Corpuscular Hemoglobin Concent 32 g/dL Red Cell Distribution Width 17.6 % Platelet Count 289 x10^3/uL Neutrophils (%) (Auto) 88 % Lymphocytes (%) (Auto) 8 % Monocytes (%) (Auto) 3 % Eosinophils (%) (Auto) 1 % Basophils (%) (Auto) 0 % Neutrophils # (Auto) 10.4 x10^3/uL Lymphocytes # (Auto) 0.9 x10^3/uL Monocytes # (Auto) 0.4 x10^3/uL Eosinophils # (Auto) 0.1 x10^3/uL Basophils # (Auto) 0.0 x10^3/uL Segmented Neutrophils % 91 % Band Neutrophils % 1 % Lymphocytes % 7 % Monocytes % 1 % Platelet Estimate Adequate Anisocytosis Slight Sodium Level 136 mmol/L Potassium Level 4.3 mmol/L Chloride Level 104 mmol/L Carbon Dioxide Level 22 mmol/L Anion Gap 10 Blood Urea Nitrogen 13 mg/dL Creatinine 0.8 mg/dL Estimated GFR (Cockcroft-Gault) 75.3 BUN/Creatinine Ratio 16 Glucose Level 148 mg/dL Calcium Level 8.9 mg/dL Total Bilirubin 0.4 mg/dL Aspartate Amino Transf (AST/SGOT) 39 U/L Alanine Aminotransferase (ALT/SGPT) 21 U/L Alkaline Phosphatase 103 U/L Total Protein 7.6 g/dL Albumin 3.1 g/dL Albumin/Globulin Ratio 0.7 Lipase 92 U/L Current Medications Medications (Trade) Dose Ordered Sig/Madeline Route PRN Reason Start Time Stop Time Status Last Admin Dose Admin Morphine Sulfate (Morphine Sulfate) 4 mg PRN Q15MIN PRN IV/SQ PAIN GREATER THAN 3/10 02/26/20 14:00 02/27/20 13:59 02/26/20 15:40 Sodium Chloride 1,000 ml @ 1,000 mls/hr Q1H IV 02/26/20 14:00 02/26/20 14:59 DC 02/26/20 14:50 Ondansetron HCl (Zofran) 4 mg 1X ONCE IVP 02/26/20 14:00 02/26/20 14:01 DC 02/26/20 14:50 (JANINA HICKMAN APRN) EKG: EKG: [] (JANINA HICKMAN APRN) Radiology/Procedures: Radiology/Procedures: [] (JANINA HICKMAN APRN) Course & Med Decision Making: Course & Med Decision Making Pertinent Labs and Imaging studies reviewed. (See chart for details) []1610 reexamination of patient, she is sitting up in bed, no longer vomiting or nauseated. States she is feeling much better and is requesting something to drink. States no longer having any abdominal pain. P.o. challenge started. 1720 patient is tolerating p.o. fluids as well as eating crackers without vomiting. She is concerned to go home but states she feels okay if she has a prescription for antiemetic medication. She can call and follow-up with her primary care doctor in the next 1 to 2 days. Return to ER for new or worsening symptoms. Patient told the nurse that her elderly mother at home also has some similar symptoms, I discussed this with patient, likely viral etiology. Importance of staying hydrated. She verbalized understanding and agrees with plan of care. (JANINA HICKMAN APRN) Course & Med Decision Making I have reviewed the PA/REHAB SERVICES AIDE's note and Plan of Care. I was available for consultation as needed during the patient's visit in the emergency department. I agree with the clinical impression, plans and disposition. (NELSON MILLER MD) Dragon Disclaimer: Dragon Disclaimer: This electronic medical record was generated, in whole or in part, using a voice recognition dictation system. (JANINA HICKMAN APRN) Departure Departure Impression: Primary Impression: Vomiting and diarrhea Disposition: DC HOME SELF CARE/HOMELESS Referrals: MARITA JJ MD (PCP) Patient Instructions: Diarrhea, Nausea and Vomiting, [id number] Scripts Ondansetron Hcl (ZOFRAN) 4 Mg Tablet 1 TAB PO Q6HRS, #20 TAB Prov: JANINA HICKMAN APRN 02/26/20 JANINA HICKMAN APRN Feb 26, 2020 14:03 NELSON MILLER MD Feb 27, 2020 17:47
[2020-02-26] MEDS: MORPHINE SULFATE 4 MG/ML VIAL. IV/SQ PRN ×3 (14:50→16:56)
[2020-02-26 15:12] LABS: BASO % 0 % (0-3); EOS # 0.1 x10^3/uL (0.0-0.7); EOS % 1 % (0-3); HEMATOCRIT 35.6 % (36.0-47.0); HEMOGLOBIN 11.3 g/dL (12.0-15.5); LYMPH # 0.9 x10^3/uL (1.0-4.8); LYMPH % 8 % (24-48); MEAN CORPUSCULAR HEMOGLOBIN 27 pg (25-35); MEAN CORPUSCULAR HGB CONC 32 g/dL (31-37); MEAN CORPUSCULAR VOLUME 84 fL (79-100); MONO # 0.4 x10^3/uL (0.0-1.1); MONO % 3 % (0-9); NEUT # 10.4 x10^3/uL (1.8-7.7); NEUT % 88 % (31-73); PLATELET COUNT 289 x10^3/uL (140-400); RED BLOOD COUNT 4.21 x10^6/uL (3.50-5.40); RED CELL DISTRIBUTION WIDTH 17.6 % (11.5-14.5); WHITE BLOOD COUNT 11.8 x10^3/uL (4.0-11.0)
[2020-02-26 15:24] LABS: CALCIUM 8.9 mg/dL (8.5-10.1); CREATININE 0.8 mg/dL (0.6-1.0); GFR 75.3; POTASSIUM 4.3 mmol/L (3.5-5.1)
[2020-02-26 15:30] LABS: ALBUMIN 3.1 g/dL (3.4-5.0); ALBUMIN/GLOBULIN RATIO 0.7 (1.0-1.7); TOTAL BILIRUBIN 0.4 mg/dL (0.2-1.0); TOTAL PROTEIN 7.6 g/dL (6.4-8.2)
[2020-02-26 15:48] LABS: BILIRUBIN,URINE NEGATIVE (NEG); CLARITY,URINE CLEAR; COLOR,URINE YELLOW; NITRITE,URINE NEGATIVE (NEG); PH,URINE 5.5 (<5.0-8.0); PROTEIN,URINE NEGATIVE (NEG-TRACE); UROBILINOGEN,URINE 0.2 mg/dL (0.2 mg/dL)
[2020-02-26 15:50] LABS: % BANDS 1 % (0-9); % LYMPHS 7 % (24-48); % MONOS 1 % (0-10); % SEGS 91 % (35-66); ANISOCYTOSIS SLIGHT; PLT ESTIMATE ADEQUATE (ADEQUATE)
[2020-02-26 15:53] LABS: BACTERIA,URINE FEW /HPF (0-FEW); RBC,URINE 0 /HPF (0-2); WBC,URINE OCC /HPF (0-4)
[2020-02-26] MEDS ORDERED: ONDANSETRON PF 4 MG/2 ML VIAL. IV ONE (17:00)
[2020-02-26] MEDS ORDERED: ONDA4TAB7 PO (17:34)
[2020-02-26 18:45] VITALS: BP 147/81
== END 2020-02-26 18:52 | disposition home or self-care (01) ==
LOC: ER 13:27
DX: R11.2 Nausea with vomiting, unspecified (principal); R19.7 Diarrhea, unspecified; R10.84 Generalized abdominal pain; E78.00 Pure hypercholesterolemia, unspecified; I10 Essential (primary) hypertension; E03.9 Hypothyroidism, unspecified; G89.29 Other chronic pain; F32.9 Major depressive disorder, single episode, unspecified; F41.9 Anxiety disorder, unspecified; E66.01 Morbid (severe) obesity due to excess calories; Z68.44 Body mass index [BMI] 60.0-69.9, adult; Z91.041 Radiographic dye allergy status; Z88.8 Allergy status to other drugs, medicaments and biological substances
CPT/HCPCS: 36415; 80053; 81001; 83690; 85007; 85025; 96361; 96374; 96375; 96376; 99285; J2270; J2405; J7030

== ENCOUNTER 2020-04-06 13:38 | Inpatient (IN) | payer OTHER ==
[~2020-04-06] VITALS: Ht 167.6 cm; Wt 192.9 kg
[~2020-04-06 13:38] MED LIST changes: -ERGO500027 PO; +ERGO500089 PO; -LACT1CAP29 PO; +LACT1CAP37 PO; +ONDA4TAB7 PO
[2020-04-06] MEDS ORDERED: FAMOTIDINE 20 MG/2 ML VIAL IVP ONE (14:00)
[2020-04-06] MEDS ORDERED: IV NORMAL SALINE 1000ML BAG 1,000 ML IV ONE ×2 (14:00→16:30)
[2020-04-06] MEDS ORDERED: ONDANSETRON PF 4 MG/2 ML VIAL. IVP ONE (14:00)
--- NOTE | 2020-04-06 14:11 | PHYS DOC ---
Past Medical History Past Medical History: Anxiety, Depression, GERD, High Cholesterol, Hypothyroid Additional Past Medical Histor: kidney stone chronic knee pain, MORBID OBESITY Past Surgical History: Other Additional Past Surgical Histo: eye sx Smoking Status: Never Smoker Alcohol Use: None Drug Use: None General Adult EDM: Chief Complaint: DIARRHEA HPI: HPI: Patient is a 54 year old female with a history of morbidly obesity, depression, high cholesterol, anxiety, chronic wound to the left lower extremity that she follows up with the wound clinic who presents to the ED today complaining of moderate generalized upper abdominal pain with nausea vomiting and diarrhea that began an hour ago. Patient describes the pain as sharp and intermittent. Denies anything alleviating the pain. Denies any fever. Patient states she had similar pain a month ago and was told she has gallstones. She states they could not operate on her for the gallstones, they told her she needs to have bariatric surgery before they can do anything for her gallstones. She states she cannot afford bariatric surgery Review of Systems: Review of Systems: Constitutional: Denies fever or chills. [] Eyes: Denies change in visual acuity. [] HENT: Denies nasal congestion or sore throat. [] Respiratory: Denies cough or shortness of breath. [] Cardiovascular: Denies chest pain or edema. [] GI: Reports bilateral upper abdominal pain, nausea vomiting diarrhea : Denies dysuria. [] Musculoskeletal: Denies back pain or joint pain. [] Integument: Denies rash. [] Neurologic: Denies headache, focal weakness or sensory changes. [] Psychiatric: Denies depression or anxiety. [] Heart Score: Risk Factors: Risk Factors: DM, Current or recent (<one month) smoker, HTN, HLP, family history of CAD, obesity. Risk Scores: Score 0 - 3: 2.5% MACE over next 6 weeks - Discharge Home Score 4 - 6: 20.3% MACE over next 6 weeks - Admit for Clinical Observation Score 7 - 10: 72.7% MACE over next 6 weeks - Early Invasive Strategies Current Medications: Current Medications Medications (Trade) Dose Ordered Sig/Madeline Start Time Stop Time Status Last Admin Dose Admin Famotidine (Pepcid Vial) 20 mg 1X ONCE 04/06/20 14:00 04/06/20 14:01 UNV Morphine Sulfate (Morphine Sulfate) 4 mg PRN Q15MIN PRN 04/06/20 14:15 04/07/20 14:14 UNV Ondansetron HCl (Zofran) 4 mg 1X ONCE 04/06/20 14:00 04/06/20 14:01 UNV Sodium Chloride 1,000 ml @ 1,000 mls/hr 1X ONCE 04/06/20 14:00 04/06/20 14:59 UNV Allergies: Allergies: Allergies Coded Allergies Type Severity Reaction Last Updated Verified I S O L A T I O N *CONTACT* Allergy Unknown 01/15/20 Yes amitriptyline HCl Adverse Reaction Intermediate 10/30/19 Yes Uncoded Allergies Type Severity Reaction Last Updated Verified red meat Adverse Reaction Mild GI upset 02/04/15 Physical Exam: PE: Constitutional: Well developed, well nourished, no acute distress, non-toxic appearance. [] HENT: Normocephalic, atraumatic, bilateral external ears normal, oropharynx moist, no oral exudates, nose normal. [] Eyes: PERRLA, EOMI, conjunctiva normal, no discharge. [] Neck: Normal range of motion, no tenderness, supple, no stridor. [] Cardiovascular:Heart rate regular rhythm, no murmur [] Lungs & Thorax: bilateral breath sounds clear to auscultation [] Abdomen: Patient is actively vomiting on arrival to the ED. Clear emesis. Bowel sounds normal, soft, diffuse tenderness to the right upper quadrant, left upper quadrant, left lower quadrant, no pain or tenderness to the right lower quadrant, no masses, no pulsatile masses. [] Skin: Warm, dry, no erythema, no rash. [] Back: No tenderness, no CVA tenderness. [] Extremities: No tenderness, no cyanosis, no clubbing, ROM intact, chronic lymphedema noted to bilateral lower extremities. Left lower extremity is wrapped up. She reports chronic wound to the left lower extremity. Neurologic: Alert and oriented X 3, normal motor function, normal sensory function, no focal deficits noted. [] Psychologic: Affect normal, judgement normal, mood normal. [] EKG: EKG: [] Radiology/Procedures: Radiology/Procedures: []PROCEDURE: ABDOMEN LTD STUDY: Realtime grayscale and color Doppler ultrasonography of the right upper quadrant INDICATION: Right upper quadrant abdominal pain. History of gallstones. COMPARISON: 08/24/2019. Findings: Limited study on account of patient body habitus. The aorta and portions of the right kidney were not able to be evaluated. No appreciable pancreatic mass or ductal dilatation though assessment is limit ed. Redemonstration of generalized hepatic parenchymal hyperechogenicity. Several gallstones but the gallbladder wall is normal in thickness at 2 mm. Normal common bile duct diameter at 3.5 mm. Unremarkable IVC at the liver. Patent main portal vein with normal flow direction. The partially assessed right kidney exhibits normal cortical thickness and echotexture. 12.2 cm longitudinal. Impression: 1. Redemonstration of several gallstones but there is no wall thickening or other findings that suggest acute cholecystitis. As deemed necessary, a HIDA scan could be performed to assess cystic duct patency. 2. Hepatic steatosis. 3. No additional abnormality at the right upper quadrant though evaluation is limited due to patient body habitus. Electronically signed by: DAVID ZURITA MD (04/06/2020 4:02 PM) [facility] DICTATED and SIGNED BY: DAVID ZURITA MD DATE: 04/06/20 [id number] 0 Course & Med Decision Making: Course & Med Decision Making Pertinent Labs and Imaging studies reviewed. (See chart for details) This is a 54-year-old female patient morbidly obese presenting to the ED today complaining of bilateral upper abdominal pain, nausea vomiting and diarrhea that began an hour ago. Patient has history of gallstones and was informed that they cannot operate on her until she has bariatric surgery. She states she cannot afford bariatric surgery. CBC, CMP, lipase-no acute findings Right upper quadrant ultrasound noted for gallstones otherwise no cholecystitis Patient has been given a liter of fluid in the ED, she has been given Zofran Pepcid Compazine and Reglan. She states she still feels nauseated and would like to be admitted. Spoke with Dr. West who accepted patient for admission. Routine consult placed for general surgery. Dragon Disclaimer: Dre Disclaimer: This electronic medical record was generated, in whole or in part, using a voice recognition dictation system. Departure Departure Impression: Primary Impression: Gallstones Additional Impressions: Intractable nausea and vomiting Vomiting and diarrhea Disposition: ADMITTED INPT THIS HOSP Condition: STABLE Referrals: MARITA JJ MD (PCP) LIONEL STACK APRN Apr 06, 2020 14:11
[2020-04-06] MEDS: MORPHINE SULFATE 4 MG/ML VIAL. IV/SQ PRN ×2 (14:12→16:03)
[2020-04-06 14:13] LABS: BASO % 0 % (0-3); EOS # 0.2 x10^3/uL (0.0-0.7); EOS % 2 % (0-3); HEMOGLOBIN 11.9 g/dL (12.0-15.5); LYMPH # 1.7 x10^3/uL (1.0-4.8); LYMPH % 16 % (24-48); MEAN CORPUSCULAR HEMOGLOBIN 27 pg (25-35); MEAN CORPUSCULAR HGB CONC 32 g/dL (31-37); MEAN CORPUSCULAR VOLUME 83 fL (79-100); MONO # 0.7 x10^3/uL (0.0-1.1); MONO % 7 % (0-9); NEUT # 7.9 x10^3/uL (1.8-7.7); NEUT % 75 % (31-73); PLATELET COUNT 295 x10^3/uL (140-400); RED BLOOD COUNT 4.46 x10^6/uL (3.50-5.40); RED CELL DISTRIBUTION WIDTH 17.6 % (11.5-14.5); WHITE BLOOD COUNT 10.5 x10^3/uL (4.0-11.0)
[2020-04-06 14:23] LABS: CREATININE 0.9 mg/dL (0.6-1.0); GFR 65.8; POTASSIUM 3.9 mmol/L (3.5-5.1)
[2020-04-06 14:29] LABS: ALBUMIN 3.3 g/dL (3.4-5.0); ALBUMIN/GLOBULIN RATIO 0.7 (1.0-1.7); TOTAL BILIRUBIN 0.5 mg/dL (0.2-1.0); TOTAL PROTEIN 7.8 g/dL (6.4-8.2)
[2020-04-06] MEDS ORDERED: PROCHLORPERAZINE 10 MG/2 ML VIAL. IV ONE (15:00)
[2020-04-06] MEDS ORDERED: METOCLOPRAMIDE HCL 10 MG/2 ML VIAL. IVP ONE (16:00)
--- NOTE | 2020-04-06 16:04 | RAD ---
STUDY: Realtime grayscale and color Doppler ultrasonography of the right upper quadrant INDICATION: Right upper quadrant abdominal pain. History of gallstones. COMPARISON: 08/24/2019. Findings: Limited study on account of patient body habitus. The aorta and portions of the right kidney were not able to be evaluated. No appreciable pancreatic mass or ductal dilatation though assessment is limited. Redemonstration of generalized hepatic parenchymal hyperechogenicity. Several gallstones but the gallbladder wall is normal in thickness at 2 mm. Normal common bile duct d iameter at 3.5 mm. Unremarkable IVC at the liver. Patent main portal vein with normal flow direction. The partially assessed right kidney exhibits normal cortical thickness and echotexture. 12.2 cm longi tudinal. Impression: 1. Redemonstration of several gallstones but there is no wall thickening or other findings that sugg est acute cholecystitis. As deemed necessary, a HIDA scan could be performed to assess cystic duct pa tency. 2. Hepatic steatosis. 3. No additional abnormality at the right upper quadrant though evaluation is limited due to patient body habitus. Electronically signed by: DAVID ZURITA MD (04/06/2020 4:02 PM) [facility]
[2020-04-06] MEDS ORDERED: ONDANSETRON PF 4 MG/2 ML VIAL. IV PRN (16:30)
[2020-04-06] MEDS ORDERED: METOCLOPRAMIDE HCL 10 MG/2 ML VIAL. IVP PRN (16:30)
[2020-04-06] MEDS ORDERED: MORPHINE SULFATE 4 MG/ML VIAL. IV PRN (16:30)
[2020-04-06] MEDS ORDERED: ACETAMINOPHEN 325 MG TABLET. PO PRN (16:30)
--- NOTE | 2020-04-06 20:00 | NUR ---
ADMISSION NOTE Pt admitted to room 422 from ER via cart. Pt ambulatory from cart to bed independently with her 2 canes. Pt settled in bed, call light given to pt and explained use. POC discussed. Pt denies any further needs at this time. Instructed to call if she needs to get OOB and that a picture would need to be done of her LLE wound. Pt vu. Will monitor.
[2020-04-06 20:40] VITALS: BP 125/48
[2020-04-06] MEDS ORDERED: ZINC50TA39 PO (22:33)
[2020-04-06] MEDS ORDERED: ONDA4TAB12 PO (22:33)
[2020-04-06 23:00] VITALS: BP 107/48
[2020-04-07 03:00] VITALS: BP 122/54
[2020-04-07 03:08] LABS: BASO # 0.1 x10^3/uL (0.0-0.2); BASO % 1 % (0-3); EOS # 0.2 x10^3/uL (0.0-0.7); EOS % 2 % (0-3); HEMATOCRIT 29.8 % (36.0-47.0); HEMOGLOBIN 9.5 g/dL (12.0-15.5); LYMPH % 22 % (24-48); MEAN CORPUSCULAR HEMOGLOBIN 27 pg (25-35); MEAN CORPUSCULAR HGB CONC 32 g/dL (31-37); MEAN CORPUSCULAR VOLUME 83 fL (79-100); MONO # 0.6 x10^3/uL (0.0-1.1); MONO % 7 % (0-9); NEUT # 6.1 x10^3/uL (1.8-7.7); NEUT % 67 % (31-73); PLATELET COUNT 245 x10^3/uL (140-400); RED BLOOD COUNT 3.57 x10^6/uL (3.50-5.40); RED CELL DISTRIBUTION WIDTH 17.3 % (11.5-14.5)
[2020-04-07 03:24] LABS: ALBUMIN 2.7 g/dL (3.4-5.0); ALBUMIN/GLOBULIN RATIO 0.8 (1.0-1.7); CALCIUM 8.5 mg/dL (8.5-10.1); CREATININE 0.8 mg/dL (0.6-1.0); GFR 75.3; TOTAL BILIRUBIN 0.4 mg/dL (0.2-1.0); TOTAL PROTEIN 6.3 g/dL (6.4-8.2)
[2020-04-07 07:00] VITALS: BP 120/52
--- NOTE | 2020-04-07 07:31 | PDOC1 ---
History and Physical Date of Admission Date of Admission DATE: 04/07/20 TIME: 07:25 Identification/Chief Complaint Chief Complaint Abdominal pain Source Source: Patient History of Present Illness History of Present Illness Ms. Cuevas is a 53-year-old female with past medical history of chronic lower extremity lymphedema, morbid obesity, HTN, HLD, hypothyroidism, GERD who presents to ED c/o generalized upper abdominal pain with nausea vomiting and diarrhea that began at approximately 1300 on 03/27/20. She described the pain as sharp and intermittent. Denies anything alleviating the pain. Denies any fever. Patient states she had similar pain a month ago and was told she has gallstones. She states they could not operate on her for the gallstones, they told her she needs to have bariatric surgery before they can do anything for her gallstones. She states she cannot afford bariatric surgery and had previously been assessed but after changing insurance she notes she is not able to restart the process. Initially seen in mid September. Admitted October 22 for concern for cellulitis found with culture from 10/22 pseudomonas, enterobacter, Staph epidermidis, corynebacterium, and bacteroides. She was seen outpatient in wound clinic found with MRSA, placed on clindamycin, readmitted 3 weeks ago for further treatment and discharged. Denies any chest pain, shortness of breath, or fever or chills. The patient had been on clindamycin from the wound care for recent MRSA culture positive and her wound has nearly healed Labs with WBC 10.5, Hb 11.9, platelets 295, NA 143, K3.9, BUN 13, CR 0.9, albumin 2.7. Right upper quadrant ultrasound revealed several gallstones but there is no wall thickening or other findings that suggest acute cholecystitis, also with hepatic steatosis. Admitted for further care for nausea and vomiting control. After IV antiemetics overnight she is requesting PO today and pain has resolved. Past Medical History Cardiovascular: No pertinent hx Pulmonary: No pertinent hx Past Surgical History Past Surgical History: Other Family History Family History: High Cholestrol, Hypertension Social History Smoke: No ALCOHOL: none Drugs: None Current Problem List Problem List Problems Medical Problems: (1) Gallstones Status: Acute (2) Intractable nausea and vomiting Status: Acute (3) Vomiting and diarrhea Status: Acute Current Medications Current Medications Current Medications Famotidine (Pepcid Vial) 20 mg 1X ONCE IVP Last administered on 04/06/20at 14:12; Start 04/06/20 at 14:00; Stop 04/06/20 at 14:05; Status DC Sodium Chloride 1,000 ml @ 1,000 mls/hr 1X ONCE IV Last administered on 04/06/20at 14:11; Start 04/06/20 at 14:00; Stop 04/06/20 at 14:59; Status DC Ondansetron HCl (Zofran) 4 mg 1X ONCE IVP Last administered on 04/06/20at 14:12; Start 04/06/20 at 14:00; Stop 04/06/20 at 14:05; Status DC Morphine Sulfate (Morphine Sulfate) 4 mg PRN Q15MIN PRN IV/SQ PAIN GREATER THAN 3/10 Last administered on 04/06/20at 16:03; Start 04/06/20 at 14:15; Stop 04/07/20 at 14:14 Prochlorperazine Edisylate (Compazine) 10 mg 1X ONCE IV Last administered on 04/06/20at 14:59; Start 04/06/20 at 15:00; Stop 04/06/20 at 15:01; Status DC Metoclopramide HCl (Reglan Vial) 10 mg 1X ONCE IVP Last administered on 04/06/20at 16:03; Start 04/06/20 at 16:00; Stop 04/06/20 at 16:01; Status DC Ondansetron HCl (Zofran) 4 mg PRN Q8HRS PRN IV NAUSEA/VOMITING; Start 04/06/20 at 16:30; Stop 04/07/20 at 16:29 Morphine Sulfate (Morphine Sulfate) 4 mg PRN Q2HR PRN IV PAIN Last administered on 04/06/20at 21:42; Start 04/06/20 at 16:30; Stop 04/07/20 at 16:29 Acetaminophen (Tylenol) 650 mg PRN Q4HRS PRN PO FEVER > 100.3'F; Start 04/06/20 at 16:30; Stop 04/07/20 at 16:29 Sodium Chloride 1,000 ml @ 75 mls/hr 1X ONCE IV Last administered on 04/06/20at 21:43; Start 04/06/20 at 16:30; Stop 04/07/20 at 05:49; Status DC Metoclopramide HCl (Reglan Vial) 10 mg PRN Q8HRS PRN IVP NAUSEA; Start 04/06/20 at 16:30 Active Scripts Active Hydrocodone-Apap 7.5-325 (Hydrocodone Bit/Acetaminophen) 1 Tab Tablet 1 Tab PO PRN Q4HRS PRN Reported Zinc 50 Mg Tablet 50 Mg PO DAILY Ondansetron Odt (Ondansetron) 4 Mg Tab.rapdis 4 Mg PO PRN Q6HRS PRN Dakin's (Sodium Hypochlorite) 473 Ml Solution 473 Ml MC DAILY Probiotic (Lactobacillus Combo No.10) 1 Each Capsule 1 Tab PO PRN DAILY PRN 30 Days Vitamin D3 (Cholecalciferol (Vitamin D3)) 1,250 Mcg Capsule 1,250 Mcg PO DAILY Vitamin C (Ascorbic Acid) 500 Mg Capsule.er 1 Cap PO BID 30 Days Crestor (Rosuvastatin Calcium) 40 Mg Tablet 20 Mg PO HS Levothyroxine Sodium 25 Mcg Tablet 1 Tab PO DAILY Allergies Allergies: Coded Allergies: I S O L A T I O N *CONTACT* (Verified Allergy, Unknown, 01/15/20) [id number]/[id number]- LLE wound amitriptyline HCl (Verified Adverse Reaction, Intermediate, 10/30/19) FEELS SPACY WHEN TAKES Uncoded Allergies: red meat (Adverse Reaction, Mild, GI upset, 02/04/15) ROS General: No: Chills, Night Sweats, Fatigue, Malaise, Appetite, Other PSYCHOLOGICAL ROS: No: Anxiety, Behavioral Disorder, Concentration difficultie, Decreased libido, Depression, Disorientation, Hallucinations, Hostility, Irritablity, Memory difficulties, Mood Swings, Obsessive thoughts, Physical abuse, Sexual abuse, Sleep disturbances, Suicidal ideation, Other Eyes: No Blurry vision, No Decreased vision, No Double vision, No Dry eyes, No Excessive tearing, No Eye Pain, No Itchy Eyes, No Loss of vision, No Photophobia, No Scotomata, No Uses contacts, No Uses glasses, No Other HEENT: No: Heacaches, Visual Changes, Hearing change, Nasal congestion, Nasal discharge, Oral lesions, Sinus pain, Sore Throat, Epistaxis, Sneezing, Snoring, Tinnitus, Vertigo, Vocal changes, Other ALLERGY AND IMMUNOLOGY: No: Hives, Insect Bite Sensitivity, Itchy/Watery Eyes, Nasal Congestion, Post Nasal Drip, Seasonal Allergies, Other Hematological and Lymphatic: No: Bleeding Problems, Blood Clots, Blood Transfusions, Brusing, Night Sweats, Pallor, Swollen Lymph Nodes, Other ENDOCRINE: No: Breast Changes, Galactorrhea, Hair Pattern Changes, Hot Flashes, Malaise/lethargy, Mood Swings, Palpitations, Polydipsia/polyuria, Skin Changes, Temperature Intolerance, Unexpected Weight Changes, Other Breast: No New/Changing Breast Lumps, No Nipple changes, No Nipple discharge, No Other Respiratory: No: Cough, Hemoptysis, Orthopnea, Pleuritic Pain, Shortness of breath, SOB with excertion, Sputum Changes, Stridor, Tachypnea, Wheezing, Other Cardiovascular: No Chest Pain, No Palpitations, No Orthopnea, No Paroxysmal Noc. Dyspnea, No Edema, No Lt Headedness, No Other Gastrointestinal: Yes Nausea, Yes Vomiting, Yes Abdominal Pain, Yes Diarrhea; No Constipation, No Melena, No Hematochezia, No Other Genitourinary: No Dysuria, No Frequency, No Incontinence, No Hematuria, No Retention, No Discharge, No Urgency, No Pain, No Flank Pain, No Other, No , No , No , No , No , No , No Musculoskeletal: No Gait Disturbance, No Joint Pain, No Joint Stiffness, No Joint Swelling, No Muscle Pain, No Muscular Weakness, No Pain In:, No Swelling In:, No Other Neurological: No Behavorial Changes, No Bowel/Bladder ControlChng, No Confusion, No Dizziness, No Gait Disturbance, No Headaches, No Impaired Coord/balance, No Memory Loss, No Numbness/Tingling, No Seizures, No Speech Problems, No Tremors, No Visual Changes, No Weakness, No Other Skin: No Dry Skin, No Eczema, No Hair Changes, No Lumps, No Mole Changes, No Mottling, No Nail Changes, No Pruritus, No Rash, No Skin Lesion Changes, No Other, No Acne Physical Exam General: Alert, Oriented X3, Cooperative, No acute distress HEENT: Atraumatic, PERRLA, EOMI, Mucous membr. moist/pink Lungs: Clear to auscultation, Normal air movement Heart: S1S2, RRR, no thrills, no rubs, no gallops, no murmurs Abdomen: Normal bowel sounds, Soft, No tenderness, No hepatosplenomegaly, No masses Extremities: No clubbing, No cyanosis, No edema, Normal pulses, No tenderness/swelling Skin: No rashes, No breakdown, No significant lesion Neuro: Normal gait, Normal speech, Strength at 5/5 X4 ext, Normal tone, Sensation intact, Cranial nerves 3-12 NL, Reflexes 2+ Psych/Mental Status: Mental status NL, Mood NL Vitals Vitals Vital Signs Date Time Temp Pulse Resp B/P (MAP) Pulse Ox O2 Delivery O2 Flow Rate FiO2 04/07/20 03:00 98.0 78 18 122/54 (76) 92 Room Air 98.0 Labs Labs Laboratory Tests Test 04/06/20 14:05 04/07/20 03:04 White Blood Count 10.5 x10^3/uL (4.0-11.0) 9.0 x10^3/uL (4.0-11.0) Red Blood Count 4.46 x10^6/uL (3.50-5.40) 3.57 x10^6/uL (3.50-5.40) Hemoglobin 11.9 g/dL (12.0-15.5) 9.5 g/dL (12.0-15.5) Hematocrit 37.0 % (36.0-47.0) 29.8 % (36.0-47.0) Mean Corpuscular Volume 83 fL (79-100) 83 fL (79-100) Mean Corpuscular Hemoglobin 27 pg (25-35) 27 pg (25-35) Mean Corpuscular Hemoglobin Concent 32 g/dL (31-37) 32 g/dL (31-37) Red Cell Distribution Width 17.6 % (11.5-14.5) 17.3 % (11.5-14.5) Platelet Count 295 x10^3/uL (140-400) 245 x10^3/uL (140-400) Neutrophils (%) (Auto) 75 % (31-73) 67 % (31-73) Lymphocytes (%) (Auto) 16 % (24-48) 22 % (24-48) Monocytes (%) (Auto) 7 % (0-9) 7 % (0-9) Eosinophils (%) (Auto) 2 % (0-3) 2 % (0-3) Basophils (%) (Auto) 0 % (0-3) 1 % (0-3) Neutrophils # (Auto) 7.9 x10^3/uL (1.8-7.7) 6.1 x10^3/uL (1.8-7.7) Lymphocytes # (Auto) 1.7 x10^3/uL (1.0-4.8) 2.0 x10^3/uL (1.0-4.8) Monocytes # (Auto) 0.7 x10^3/uL (0.0-1.1) 0.6 x10^3/uL (0.0-1.1) Eosinophils # (Auto) 0.2 x10^3/uL (0.0-0.7) 0.2 x10^3/uL (0.0-0.7) Basophils # (Auto) 0.0 x10^3/uL (0.0-0.2) 0.1 x10^3/uL (0.0-0.2) Sodium Level 143 mmol/L (136-145) 143 mmol/L (136-145) Potassium Level 3.9 mmol/L (3.5-5.1) 4.0 mmol/L (3.5-5.1) Chloride Level 106 mmol/L (98-107) 109 mmol/L (98-107) Carbon Dioxide Level 24 mmol/L (21-32) 27 mmol/L (21-32) Anion Gap 13 (6-14) 7 (6-14) Blood Urea Nitrogen 13 mg/dL (7-20) 12 mg/dL (7-20) Creatinine 0.9 mg/dL (0.6-1.0) 0.8 mg/dL (0.6-1.0) Estimated GFR (Cockcroft-Gault) 65.8 75.3 BUN/Creatinine Ratio 14 (6-20) 15 (6-20) Glucose Level 139 mg/dL (70-99) 97 mg/dL (70-99) Calcium Level 9.0 mg/dL (8.5-10.1) 8.5 mg/dL (8.5-10.1) Total Bilirubin 0.5 mg/dL (0.2-1.0) 0.4 mg/dL (0.2-1.0) Aspartate Amino Transf (AST/SGOT) 26 U/L (15-37) 20 U/L (15-37) Alanine Aminotransferase (ALT/SGPT) 21 U/L (14-59) 18 U/L (14-59) Alkaline Phosphatase 99 U/L (46-116) 74 U/L (46-116) Total Protein 7.8 g/dL (6.4-8.2) 6.3 g/dL (6.4-8.2) Albumin 3.3 g/dL (3.4-5.0) 2.7 g/dL (3.4-5.0) Albumin/Globulin Ratio 0.7 (1.0-1.7) 0.8 (1.0-1.7) Lipase 98 U/L (73-393) Ethyl Alcohol Level < 10 mg/dL (0-10) Laboratory Tests Test 04/06/20 14:05 04/07/20 03:04 White Blood Count 10.5 x10^3/uL (4.0-11.0) 9.0 x10^3/uL (4.0-11.0) Red Blood Count 4.46 x10^6/uL (3.50-5.40) 3.57 x10^6/uL (3.50-5.40) Hemoglobin 11.9 g/dL (12.0-15.5) 9.5 g/dL (12.0-15.5) Hematocrit 37.0 % (36.0-47.0) 29.8 % (36.0-47.0) Mean Corpuscular Volume 83 fL (79-100) 83 fL (79-100) Mean Corpuscular Hemoglobin 27 pg (25-35) 27 pg (25-35) Mean Corpuscular Hemoglobin Concent 32 g/dL (31-37) 32 g/dL (31-37) Red Cell Distribution Width 17.6 % (11.5-14.5) 17.3 % (11.5-14.5) Platelet Count 295 x10^3/uL (140-400) 245 x10^3/uL (140-400) Neutrophils (%) (Auto) 75 % (31-73) 67 % (31-73) Lymphocytes (%) (Auto) 16 % (24-48) 22 % (24-48) Monocytes (%) (Auto) 7 % (0-9) 7 % (0-9) Eosinophils (%) (Auto) 2 % (0-3) 2 % (0-3) Basophils (%) (Auto) 0 % (0-3) 1 % (0-3) Neutrophils # (Auto) 7.9 x10^3/uL (1.8-7.7) 6.1 x10^3/uL (1.8-7.7) Lymphocytes # (Auto) 1.7 x10^3/uL (1.0-4.8) 2.0 x10^3/uL (1.0-4.8) Monocytes # (Auto) 0.7 x10^3/uL (0.0-1.1) 0.6 x10^3/uL (0.0-1.1) Eosinophils # (Auto) 0.2 x10^3/uL (0.0-0.7) 0.2 x10^3/uL (0.0-0.7) Basophils # (Auto) 0.0 x10^3/uL (0.0-0.2) 0.1 x10^3/uL (0.0-0.2) Sodium Level 143 mmol/L (136-145) 143 mmol/L (136-145) Potassium Level 3.9 mmol/L (3.5-5.1) 4.0 mmol/L (3.5-5.1) Chloride Level 106 mmol/L (98-107) 109 mmol/L (98-107) Carbon Dioxide Level 24 mmol/L (21-32) 27 mmol/L (21-32) Anion Gap 13 (6-14) 7 (6-14) Blood Urea Nitrogen 13 mg/dL (7-20) 12 mg/dL (7-20) Creatinine 0.9 mg/dL (0.6-1.0) 0.8 mg/dL (0.6-1.0) Estimated GFR (Cockcroft-Gault) 65.8 75.3 BUN/Creatinine Ratio 14 (6-20) 15 (6-20) Glucose Level 139 mg/dL (70-99) 97 mg/dL (70-99) Calcium Level 9.0 mg/dL (8.5-10.1) 8.5 mg/dL (8.5-10.1) Total Bilirubin 0.5 mg/dL (0.2-1.0) 0.4 mg/dL (0.2-1.0) Aspartate Amino Transf (AST/SGOT) 26 U/L (15-37) 20 U/L (15-37) Alanine Aminotransferase (ALT/SGPT) 21 U/L (14-59) 18 U/L (14-59) Alkaline Phosphatase 99 U/L (46-116) 74 U/L (46-116) Total Protein 7.8 g/dL (6.4-8.2) 6.3 g/dL (6.4-8.2) Albumin 3.3 g/dL (3.4-5.0) 2.7 g/dL (3.4-5.0) Albumin/Globulin Ratio 0.7 (1.0-1.7) 0.8 (1.0-1.7) Lipase 98 U/L (73-393) Ethyl Alcohol Level < 10 mg/dL (0-10) Images Images RUQ US: Limited study on account of patient body habitus. The aorta and portions of the right kidney were not able to be evaluated. No appreciable pancreatic mass or ductal dilatation though assessment is limited. Redemonstration of generalized hepatic parenchymal hyperechogenicity. Several gallstones but the gallbladder wall is normal in thickness at 2 mm. Normal common bile duct diameter at 3.5 mm. Unremarkable IVC at the liver. Patent main portal vein with normal flow direction. The partially assessed right kidney exhibits normal cortical thickness and echotexture. 12.2 cm longitudinal. Impression: 1. Redemonstration of several gallstones but there is no wall thickening or other findings that suggest acute cholecystitis. As deemed necessary, a HIDA scan could be performed to assess cystic duct patency. 2. Hepatic steatosis. 3. No additional abnormality at the right upper quadrant though evaluation is limited due to patient body habitus. VTE Prophylaxis Ordered VTE Prophylaxis Devices: Yes VTE Pharmacological Prophylaxi: Yes Assessment/Plan Assessment/Plan A/P: Intractable abdominal pain - resolved after IV antiemetics Nausea, vomiting, and diarrhea - resolved Left leg chronic wound - healing well Lymphedema - will consult OT for potential renewal of Lymphapress, but more appropriately needs referral to plastic surgery for likely lipectomy excision and debulking +/- lymphatic or lymphovenous bypass Morbid obesity - counseled on diet exercise and weight loss techniques. h/o Right arm fracture - s/p ORIF, healing very well Intertrigo - multiple skin folds with redness, will apply nystatin powder Anemia - will check iron levels, likely of chronic blood loss anemia Hypertension - cont meds Hyperlipidemia - cont statin Severe protein calorie malnutrition - account specialist to see, supplements with meals FEN - General diet PPX - lovenox FULL CODE Dispo - inpatient likely can d/c Justifications for Admission Other Justification ROSLYN CARLOS MD Apr 07, 2020 07:31
[2020-04-07] MEDS ORDERED: ONDANSETRON ODT 4 MG TAB.RAPDIS. PO PRN (07:45)
--- NOTE | 2020-04-07 08:49 | PDOC2 ---
OG ART ARCHITECTURAL INSPECTOR 04/07/20 0849: CONSULT Date of Consult Date of Consult DATE: 04/07/20 TIME: 08:42 Reason for Consult Reason for Consult: cholelithiasis Referring Physician Referring Physician: ER Identification/Chief Complaint Chief Complaint abdominal pain Source Source: Chart review, Patient History of Present Illness Reason for Visit: Abdominal pain, similar to last time, thought was food poisoning. Can not afford outpt FU for bariatrics Feels much better, would like to eat and go home Past Medical History Cardiovascular: No pertinent hx Pulmonary: No pertinent hx Past Surgical History Past Surgical History: Other Family History Family History: High Cholestrol, Hypertension Social History ALCOHOL: none Drugs: None Current Problem List Problem List Problems Medical Problems: (1) Gallstones Status: Acute (2) Intractable nausea and vomiting Status: Acute (3) Vomiting and diarrhea Status: Acute Current Medications Current Medications Current Medications Famotidine (Pepcid Vial) 20 mg 1X ONCE IVP Last administered on 04/06/20at 14:12; Start 04/06/20 at 14:00; Stop 04/06/20 at 14:05; Status DC Sodium Chloride 1,000 ml @ 1,000 mls/hr 1X ONCE IV Last administered on 04/06/20at 14:11; Start 04/06/20 at 14:00; Stop 04/06/20 at 14:59; Status DC Ondansetron HCl (Zofran) 4 mg 1X ONCE IVP Last administered on 04/06/20at 14:12; Start 04/06/20 at 14:00; Stop 04/06/20 at 14:05; Status DC Morphine Sulfate (Morphine Sulfate) 4 mg PRN Q15MIN PRN IV/SQ PAIN GREATER THAN 3/10 Last administered on 04/06/20at 16:03; Start 04/06/20 at 14:15; Stop 04/07/20 at 14:14 Prochlorperazine Edisylate (Compazine) 10 mg 1X ONCE IV Last administered on 04/06/20at 14:59; Start 04/06/20 at 15:00; Stop 04/06/20 at 15:01; Status DC Metoclopramide HCl (Reglan Vial) 10 mg 1X ONCE IVP Last administered on 04/06/20at 16:03; Start 04/06/20 at 16:00; Stop 04/06/20 at 16:01; Status DC Ondansetron HCl (Zofran) 4 mg PRN Q8HRS PRN IV NAUSEA/VOMITING; Start 04/06/20 at 16:30; Stop 04/08/20 at 16:29 Morphine Sulfate (Morphine Sulfate) 4 mg PRN Q2HR PRN IV PAIN Last administered on 04/06/20at 21:42; Start 04/06/20 at 16:30; Stop 04/07/20 at 16:29 Acetaminophen (Tylenol) 650 mg PRN Q4HRS PRN PO FEVER > 100.3'F; Start 04/06/20 at 16:30; Stop 04/08/20 at 16:29 Sodium Chloride 1,000 ml @ 75 mls/hr 1X ONCE IV Last administered on 04/06/20at 21:43; Start 04/06/20 at 16:30; Stop 04/07/20 at 05:49; Status DC Metoclopramide HCl (Reglan Vial) 10 mg PRN Q8HRS PRN IVP NAUSEA; Start 04/06/20 at 16:30 Levothyroxine Sodium (Synthroid) 25 mcg DAILY06 PO ; Start 04/07/20 at 09:00 Ondansetron HCl (Zofran Odt) 4 mg PRN Q6HRS PRN PO NAUSEA/VOMITING; Start 04/07/20 at 07:45 Atorvastatin Calcium (Lipitor) 80 mg QHS PO ; Start 04/07/20 at 21:00 Active Scripts Active Hydrocodone-Apap 7.5-325 (Hydrocodone Bit/Acetaminophen) 1 Tab Tablet 1 Tab PO PRN Q4HRS PRN Reported Zinc 50 Mg Tablet 50 Mg PO DAILY Ondansetron Odt (Ondansetron) 4 Mg Tab.rapdis 4 Mg PO PRN Q6HRS PRN Dakin's (Sodium Hypochlorite) 473 Ml Solution 473 Ml MC DAILY Probiotic (Lactobacillus Combo No.10) 1 Each Capsule 1 Tab PO PRN DAILY PRN 30 Days Vitamin D3 (Cholecalciferol (Vitamin D3)) 1,250 Mcg Capsule 1,250 Mcg PO DAILY Vitamin C (Ascorbic Acid) 500 Mg Capsule.er 1 Cap PO BID 30 Days Crestor (Rosuvastatin Calcium) 40 Mg Tablet 20 Mg PO HS Levothyroxine Sodium 25 Mcg Tablet 1 Tab PO DAILY Allergies Allergies: Coded Allergies: I S O L A T I O N *CONTACT* (Verified Allergy, Unknown, 01/15/20) mrsa/vre/CR-PSA- LLE wound amitriptyline HCl (Verified Adverse Reaction, Intermediate, 10/30/19) FEELS SPACY WHEN TAKES Uncoded Allergies: red meat (Adverse Reaction, Mild, GI upset, 02/04/15) ROS General: No: Chills, Other (fevers ) PSYCHOLOGICAL ROS: No: Anxiety, Depression Eyes: No Blurry vision, No Double vision HEENT: No: Heacaches, Sore Throat Hematological and Lymphatic: No: Bleeding Problems, Blood Clots Respiratory: No: Cough, Shortness of breath Cardiovascular: No Chest Pain, No Palpitations Gastrointestinal: Yes Other (see hpi) Genitourinary: No Dysuria, No Hematuria Musculoskeletal: Yes Joint Pain, Yes Muscle Pain Neurological: No Impaired Coord/balance, No Numbness/Tingling Skin: No Pruritus, No Rash Physical Exam General: Alert, Oriented X3, Cooperative HEENT: Atraumatic, PERRLA Lungs: Clear to auscultation, Normal air movement Heart: Regular rate, Normal S1, Normal S2 Abdomen: Soft, No tenderness, No hepatosplenomegaly Extremities: No clubbing, No cyanosis Skin: Other (leg wound wrapped ) Neuro: Normal gait, Normal speech Psych/Mental Status: Mental status NL, Mood NL Vitals VITALS Vital Signs Date Time Temp Pulse Resp B/P (MAP) Pulse Ox O2 Delivery O2 Flow Rate FiO2 04/07/20 07:00 98.1 72 16 120/52 (74) 89 Room Air 98.1 04/07/20 03:00 Labs Labs Laboratory Tests Test 04/06/20 14:05 04/07/20 03:04 White Blood Count 10.5 x10^3/uL (4.0-11.0) 9.0 x10^3/uL (4.0-11.0) Red Blood Count 4.46 x10^6/uL (3.50-5.40) 3.57 x10^6/uL (3.50-5.40) Hemoglobin 11.9 g/dL (12.0-15.5) 9.5 g/dL (12.0-15.5) Hematocrit 37.0 % (36.0-47.0) 29.8 % (36.0-47.0) Mean Corpuscular Volume 83 fL (79-100) 83 fL (79-100) Mean Corpuscular Hemoglobin 27 pg (25-35) 27 pg (25-35) Mean Corpuscular Hemoglobin Concent 32 g/dL (31-37) 32 g/dL (31-37) Red Cell Distribution Width 17.6 % (11.5-14.5) 17.3 % (11.5-14.5) Platelet Count 295 x10^3/uL (140-400) 245 x10^3/uL (140-400) Neutrophils (%) (Auto) 75 % (31-73) 67 % (31-73) Lymphocytes (%) (Auto) 16 % (24-48) 22 % (24-48) Monocytes (%) (Auto) 7 % (0-9) 7 % (0-9) Eosinophils (%) (Auto) 2 % (0-3) 2 % (0-3) Basophils (%) (Auto) 0 % (0-3) 1 % (0-3) Neutrophils # (Auto) 7.9 x10^3/uL (1.8-7.7) 6.1 x10^3/uL (1.8-7.7) Lymphocytes # (Auto) 1.7 x10^3/uL (1.0-4.8) 2.0 x10^3/uL (1.0-4.8) Monocytes # (Auto) 0.7 x10^3/uL (0.0-1.1) 0.6 x10^3/uL (0.0-1.1) Eosinophils # (Auto) 0.2 x10^3/uL (0.0-0.7) 0.2 x10^3/uL (0.0-0.7) Basophils # (Auto) 0.0 x10^3/uL (0.0-0.2) 0.1 x10^3/uL (0.0-0.2) Sodium Level 143 mmol/L (136-145) 143 mmol/L (136-145) Potassium Level 3.9 mmol/L (3.5-5.1) 4.0 mmol/L (3.5-5.1) Chloride Level 106 mmol/L (98-107) 109 mmol/L (98-107) Carbon Dioxide Level 24 mmol/L (21-32) 27 mmol/L (21-32) Anion Gap 13 (6-14) 7 (6-14) Blood Urea Nitrogen 13 mg/dL (7-20) 12 mg/dL (7-20) Creatinine 0.9 mg/dL (0.6-1.0) 0.8 mg/dL (0.6-1.0) Estimated GFR (Cockcroft-Gault) 65.8 75.3 BUN/Creatinine Ratio 14 (6-20) 15 (6-20) Glucose Level 139 mg/dL (70-99) 97 mg/dL (70-99) Calcium Level 9.0 mg/dL (8.5-10.1) 8.5 mg/dL (8.5-10.1) Total Bilirubin 0.5 mg/dL (0.2-1.0) 0.4 mg/dL (0.2-1.0) Aspartate Amino Transf (AST/SGOT) 26 U/L (15-37) 20 U/L (15-37) Alanine Aminotransferase (ALT/SGPT) 21 U/L (14-59) 18 U/L (14-59) Alkaline Phosphatase 99 U/L (46-116) 74 U/L (46-116) Total Protein 7.8 g/dL (6.4-8.2) 6.3 g/dL (6.4-8.2) Albumin 3.3 g/dL (3.4-5.0) 2.7 g/dL (3.4-5.0) Albumin/Globulin Ratio 0.7 (1.0-1.7) 0.8 (1.0-1.7) Lipase 98 U/L (73-393) Ethyl Alcohol Level < 10 mg/dL (0-10) Laboratory Tests Test 04/06/20 14:05 04/07/20 03:04 White Blood Count 10.5 x10^3/uL (4.0-11.0) 9.0 x10^3/uL (4.0-11.0) Red Blood Count 4.46 x10^6/uL (3.50-5.40) 3.57 x10^6/uL (3.50-5.40) Hemoglobin 11.9 g/dL (12.0-15.5) 9.5 g/dL (12.0-15.5) Hematocrit 37.0 % (36.0-47.0) 29.8 % (36.0-47.0) Mean Corpuscular Volume 83 fL (79-100) 83 fL (79-100) Mean Corpuscular Hemoglobin 27 pg (25-35) 27 pg (25-35) Mean Corpuscular Hemoglobin Concent 32 g/dL (31-37) 32 g/dL (31-37) Red Cell Distribution Width 17.6 % (11.5-14.5) 17.3 % (11.5-14.5) Platelet Count 295 x10^3/uL (140-400) 245 x10^3/uL (140-400) Neutrophils (%) (Auto) 75 % (31-73) 67 % (31-73) Lymphocytes (%) (Auto) 16 % (24-48) 22 % (24-48) Monocytes (%) (Auto) 7 % (0-9) 7 % (0-9) Eosinophils (%) (Auto) 2 % (0-3) 2 % (0-3) Basophils (%) (Auto) 0 % (0-3) 1 % (0-3) Neutrophils # (Auto) 7.9 x10^3/uL (1.8-7.7) 6.1 x10^3/uL (1.8-7.7) Lymphocytes # (Auto) 1.7 x10^3/uL (1.0-4.8) 2.0 x10^3/uL (1.0-4.8) Monocytes # (Auto) 0.7 x10^3/uL (0.0-1.1) 0.6 x10^3/uL (0.0-1.1) Eosinophils # (Auto) 0.2 x10^3/uL (0.0-0.7) 0.2 x10^3/uL (0.0-0.7) Basophils # (Auto) 0.0 x10^3/uL (0.0-0.2) 0.1 x10^3/uL (0.0-0.2) Sodium Level 143 mmol/L (136-145) 143 mmol/L (136-145) Potassium Level 3.9 mmol/L (3.5-5.1) 4.0 mmol/L (3.5-5.1) Chloride Level 106 mmol/L (98-107) 109 mmol/L (98-107) Carbon Dioxide Level 24 mmol/L (21-32) 27 mmol/L (21-32) Anion Gap 13 (6-14) 7 (6-14) Blood Urea Nitrogen 13 mg/dL (7-20) 12 mg/dL (7-20) Creatinine 0.9 mg/dL (0.6-1.0) 0.8 mg/dL (0.6-1.0) Estimated GFR (Cockcroft-Gault) 65.8 75.3 BUN/Creatinine Ratio 14 (6-20) 15 (6-20) Glucose Level 139 mg/dL (70-99) 97 mg/dL (70-99) Calcium Level 9.0 mg/dL (8.5-10.1) 8.5 mg/dL (8.5-10.1) Total Bilirubin 0.5 mg/dL (0.2-1.0) 0.4 mg/dL (0.2-1.0) Aspartate Amino Transf (AST/SGOT) 26 U/L (15-37) 20 U/L (15-37) Alanine Aminotransferase (ALT/SGPT) 21 U/L (14-59) 18 U/L (14-59) Alkaline Phosphatase 99 U/L (46-116) 74 U/L (46-116) Total Protein 7.8 g/dL (6.4-8.2) 6.3 g/dL (6.4-8.2) Albumin 3.3 g/dL (3.4-5.0) 2.7 g/dL (3.4-5.0) Albumin/Globulin Ratio 0.7 (1.0-1.7) 0.8 (1.0-1.7) Lipase 98 U/L (73-393) Ethyl Alcohol Level < 10 mg/dL (0-10) Assessment/Plan Assessment/Plan cholelithiasis morbid obesity with BMI 68.6 would require evaluation by a bariatric surgeon, not available here--rec outpt fu low fat diet MONTIEL,BLAINE W MD 04/07/20 0953: CONSULT Assessment/Plan Assessment/Plan Asymptomatic now with normal labs. Recommend bariatric evaluation. Agree with Ila's assessment and plan. OG ART APRN Apr 07, 2020 08:49 BLAINE MONTIEL MD Apr 07, 2020 09:53
[2020-04-07] MEDS ORDERED: LEVOTHYROXINE 25 MCG TABLET. PO SCH (09:00)
--- NOTE | 2020-04-07 09:36 | PDOC3 ---
Discharge Summary Visit Information Date of Admission: Apr 06, 2020 Date of Discharge: Apr 07, 2020 Admitting Diagnosis: Intractable nausea and vomiting Final Diagnosis Problems Medical Problems: (1) Gallstones Status: Acute (2) Intractable nausea and vomiting Status: Acute (3) Vomiting and diarrhea Status: Acute Brief Hospital Course Allergies Allergies Coded Allergies Type Severity Reaction Last Updated Verified I S O L A T I O N *CONTACT* Allergy Unknown 01/15/20 Yes amitriptyline HCl Adverse Reaction Intermediate 10/30/19 Yes Uncoded Allergies Type Severity Reaction Last Updated Verified red meat Adverse Reaction Mild GI upset 02/04/15 Vital Signs Vital Signs Date Time Temp Pulse Resp B/P (MAP) Pulse Ox O2 Delivery O2 Flow Rate FiO2 04/07/20 07:00 98.1 72 16 120/52 (74) 89 Room Air 98.1 04/07/20 03:00 Lab Results Laboratory Tests Test 04/06/20 14:05 04/07/20 03:04 White Blood Count 10.5 x10^3/uL (4.0-11.0) 9.0 x10^3/uL (4.0-11.0) Red Blood Count 4.46 x10^6/uL (3.50-5.40) 3.57 x10^6/uL (3.50-5.40) Hemoglobin 11.9 g/dL (12.0-15.5) 9.5 g/dL (12.0-15.5) Hematocrit 37.0 % (36.0-47.0) 29.8 % (36.0-47.0) Mean Corpuscular Volume 83 fL (79-100) 83 fL (79-100) Mean Corpuscular Hemoglobin 27 pg (25-35) 27 pg (25-35) Mean Corpuscular Hemoglobin Concent 32 g/dL (31-37) 32 g/dL (31-37) Red Cell Distribution Width 17.6 % (11.5-14.5) 17.3 % (11.5-14.5) Platelet Count 295 x10^3/uL (140-400) 245 x10^3/uL (140-400) Neutrophils (%) (Auto) 75 % (31-73) 67 % (31-73) Lymphocytes (%) (Auto) 16 % (24-48) 22 % (24-48) Monocytes (%) (Auto) 7 % (0-9) 7 % (0-9) Eosinophils (%) (Auto) 2 % (0-3) 2 % (0-3) Basophils (%) (Auto) 0 % (0-3) 1 % (0-3) Neutrophils # (Auto) 7.9 x10^3/uL (1.8-7.7) 6.1 x10^3/uL (1.8-7.7) Lymphocytes # (Auto) 1.7 x10^3/uL (1.0-4.8) 2.0 x10^3/uL (1.0-4.8) Monocytes # (Auto) 0.7 x10^3/uL (0.0-1.1) 0.6 x10^3/uL (0.0-1.1) Eosinophils # (Auto) 0.2 x10^3/uL (0.0-0.7) 0.2 x10^3/uL (0.0-0.7) Basophils # (Auto) 0.0 x10^3/uL (0.0-0.2) 0.1 x10^3/uL (0.0-0.2) Sodium Level 143 mmol/L (136-145) 143 mmol/L (136-145) Potassium Level 3.9 mmol/L (3.5-5.1) 4.0 mmol/L (3.5-5.1) Chloride Level 106 mmol/L (98-107) 109 mmol/L (98-107) Carbon Dioxide Level 24 mmol/L (21-32) 27 mmol/L (21-32) Anion Gap 13 (6-14) 7 (6-14) Blood Urea Nitrogen 13 mg/dL (7-20) 12 mg/dL (7-20) Creatinine 0.9 mg/dL (0.6-1.0) 0.8 mg/dL (0.6-1.0) Estimated GFR (Cockcroft-Gault) 65.8 75.3 BUN/Creatinine Ratio 14 (6-20) 15 (6-20) Glucose Level 139 mg/dL (70-99) 97 mg/dL (70-99) Calcium Level 9.0 mg/dL (8.5-10.1) 8.5 mg/dL (8.5-10.1) Total Bilirubin 0.5 mg/dL (0.2-1.0) 0.4 mg/dL (0.2-1.0) Aspartate Amino Transf (AST/SGOT) 26 U/L (15-37) 20 U/L (15-37) Alanine Aminotransferase (ALT/SGPT) 21 U/L (14-59) 18 U/L (14-59) Alkaline Phosphatase 99 U/L (46-116) 74 U/L (46-116) Total Protein 7.8 g/dL (6.4-8.2) 6.3 g/dL (6.4-8.2) Albumin 3.3 g/dL (3.4-5.0) 2.7 g/dL (3.4-5.0) Albumin/Globulin Ratio 0.7 (1.0-1.7) 0.8 (1.0-1.7) Lipase 98 U/L (73-393) Ethyl Alcohol Level < 10 mg/dL (0-10) Laboratory Tests Test 04/06/20 14:05 04/07/20 03:04 White Blood Count 10.5 x10^3/uL (4.0-11.0) 9.0 x10^3/uL (4.0-11.0) Red Blood Count 4.46 x10^6/uL (3.50-5.40) 3.57 x10^6/uL (3.50-5.40) Hemoglobin 11.9 g/dL (12.0-15.5) 9.5 g/dL (12.0-15.5) Hematocrit 37.0 % (36.0-47.0) 29.8 % (36.0-47.0) Mean Corpuscular Volume 83 fL (79-100) 83 fL (79-100) Mean Corpuscular Hemoglobin 27 pg (25-35) 27 pg (25-35) Mean Corpuscular Hemoglobin Concent 32 g/dL (31-37) 32 g/dL (31-37) Red Cell Distribution Width 17.6 % (11.5-14.5) 17.3 % (11.5-14.5) Platelet Count 295 x10^3/uL (140-400) 245 x10^3/uL (140-400) Neutrophils (%) (Auto) 75 % (31-73) 67 % (31-73) Lymphocytes (%) (Auto) 16 % (24-48) 22 % (24-48) Monocytes (%) (Auto) 7 % (0-9) 7 % (0-9) Eosinophils (%) (Auto) 2 % (0-3) 2 % (0-3) Basophils (%) (Auto) 0 % (0-3) 1 % (0-3) Neutrophils # (Auto) 7.9 x10^3/uL (1.8-7.7) 6.1 x10^3/uL (1.8-7.7) Lymphocytes # (Auto) 1.7 x10^3/uL (1.0-4.8) 2.0 x10^3/uL (1.0-4.8) Monocytes # (Auto) 0.7 x10^3/uL (0.0-1.1) 0.6 x10^3/uL (0.0-1.1) Eosinophils # (Auto) 0.2 x10^3/uL (0.0-0.7) 0.2 x10^3/uL (0.0-0.7) Basophils # (Auto) 0.0 x10^3/uL (0.0-0.2) 0.1 x10^3/uL (0.0-0.2) Sodium Level 143 mmol/L (136-145) 143 mmol/L (136-145) Potassium Level 3.9 mmol/L (3.5-5.1) 4.0 mmol/L (3.5-5.1) Chloride Level 106 mmol/L (98-107) 109 mmol/L (98-107) Carbon Dioxide Level 24 mmol/L (21-32) 27 mmol/L (21-32) Anion Gap 13 (6-14) 7 (6-14) Blood Urea Nitrogen 13 mg/dL (7-20) 12 mg/dL (7-20) Creatinine 0.9 mg/dL (0.6-1.0) 0.8 mg/dL (0.6-1.0) Estimated GFR (Cockcroft-Gault) 65.8 75.3 BUN/Creatinine Ratio 14 (6-20) 15 (6-20) Glucose Level 139 mg/dL (70-99) 97 mg/dL (70-99) Calcium Level 9.0 mg/dL (8.5-10.1) 8.5 mg/dL (8.5-10.1) Total Bilirubin 0.5 mg/dL (0.2-1.0) 0.4 mg/dL (0.2-1.0) Aspartate Amino Transf (AST/SGOT) 26 U/L (15-37) 20 U/L (15-37) Alanine Aminotransferase (ALT/SGPT) 21 U/L (14-59) 18 U/L (14-59) Alkaline Phosphatase 99 U/L (46-116) 74 U/L (46-116) Total Protein 7.8 g/dL (6.4-8.2) 6.3 g/dL (6.4-8.2) Albumin 3.3 g/dL (3.4-5.0) 2.7 g/dL (3.4-5.0) Albumin/Globulin Ratio 0.7 (1.0-1.7) 0.8 (1.0-1.7) Lipase 98 U/L (73-393) Ethyl Alcohol Level < 10 mg/dL (0-10) Brief Hospital Course Ms. Cuevas is a 53-year-old female with past medical history of chronic lower extremity lymphedema, morbid obesity, HTN, HLD, hypothyroidism, GERD who presents to ED c/o generalized upper abdominal pain with nausea vomiting and diarrhea that began at approximately 1300 on 03/27/20. She described the pain as sharp and intermittent. Denies anything alleviating the pain. Denies any fever. Patient states she had similar pain a month ago and was told she has gallstones. She states they could not operate on her for the gallstones, they told her she needs to have bariatric surgery before they can do anything for her gallstones. She states she cannot afford bariatric surgery and had previously been assessed but after changing insurance she notes she is not able to restart the process. Initially seen in mid September. Admitted October 22- for concern for cellulitis found with culture from 10/22 pseudomonas, enterobacter, Staph epidermidis, corynebacterium, and bacteroides. She was seen outpatient in wound clinic found with MRSA, placed on clindamycin, readmitted 3 weeks ago for further treatment and discharged. Denies any chest pain, shortness of breath, or fever or chills. The patient had been on clindamycin from the wound care for recent MRSA culture positive and her wound has nearly healed Labs with WBC 10.5, Hb 11.9, platelets 295, NA 143, K3.9, BUN 13, CR 0.9, albumin 2.7. Right upper quadrant ultrasound revealed several gallstones but there is no wall thickening or other findings that suggest acute cholecystitis, also with hepatic steatosis. Admitted for further care for nausea and vomiting control. After IV antiemetics overnight she is requesting PO today and pain has resolved. Seen by general surgery recommended referral to bariatric surgery for consideration of lap breanna and also bariatric surgery considerations. She tolerated p.o. well and will go home with self care Consults: General surgery Problem list: Intractable abdominal pain - resolved after IV antiemetics Nausea, vomiting, and diarrhea - resolved Left leg chronic wound - healing well Lymphedema - will consult OT for potential renewal of Lymphapress, but more appropriately needs referral to plastic surgery for likely lipectomy excision and debulking +/- lymphatic or lymphovenous bypass Morbid obesity - counseled on diet exercise and weight loss techniques. h/o Right arm fracture - s/p ORIF, healing very well Intertrigo - multiple skin folds with redness, will apply nystatin powder Anemia - will check iron levels, likely of chronic blood loss anemia Hypertension - cont meds Hyperlipidemia - cont statin Severe protein calorie malnutrition - rn care manager to see, supplements with meals Greater than 90 minutes on care same day admit and d/c Discharge Information Follow Up: Weeks Disposition/Orders: D/C to Home Scheduled Ascorbic Acid (Vitamin C) 500 Mg Capsule.er, 1 CAP PO BID for supplement for 30 Days, #60 Ref 0 (Reported) Entered as Reported by: CHAITANYA PANG on 12/03/19 1609 Last Action: Reviewed on 04/06/202232 by KISHA COBURN Cholecalciferol (Vitamin D3) (Vitamin D3) 1,250 Mcg Capsule, 1,250 MCG PO DAILY for , (Reported) Entered as Reported by: RODRIGUE MORSE on 01/15/20 0935 Last Action: Reviewed on 04/06/202232 by KISHA COBURN Levothyroxine Sodium (Levothyroxine Sodium) 25 Mcg Tablet, 1 TAB PO DAILY for thyroid, (Reported) Entered as Reported by: ION SKY on 10/24/191105 Last Action: Continued on 04/07/20732 by ROSLYN CARLOS MD Rosuvastatin Calcium (Crestor) 40 Mg Tablet, 20 MG PO HS for FOR CHOLESTEROL, #30 Ref 0 (Reported) Entered as Reported by: ION SKY on 10/24/191105 Last Action: Converted on 04/07/20732 by ROSLYN CARLOS MD Sodium Hypochlorite (Dakin's) 473 Ml Solution, 473 ML MC DAILY for , (Reported) Entered as Reported by: RODRIGUE MORSE on 01/15/20934 Zinc (Zinc) 50 Mg Tablet, 50 MG PO DAILY for wound, (Reported) Entered as Reported by: KISHA COBURN on 04/06/202232 Last Action: New Order on 04/06/202232 by KISHA COBURN Scheduled PRN Hydrocodone Bit/Acetaminophen (Hydrocodone-Apap 7.5-325 ) 1 Tab Tablet, 1 TAB PO PRN Q4HRS PRN for PAIN, #45 Prescribed by: MIREILLE HOPE on 11/02/19 1503 Last Action: Reviewed on 04/06/202232 by KISHA COBURN Lactobacillus Combo No.10 (Probiotic) 1 Each Capsule, 1 TAB PO PRN DAILY PRN for NAUSEA/VOMITING for 30 Days, Ref 0 (Reported) Entered as Reported by: RODRIGUE MORSE on 01/15/20934 Last Action: Edited on 04/06/202232 by KISHA COBURN Ondansetron (Ondansetron Odt) 4 Mg Tab.rapdis, 4 MG PO PRN Q6HRS PRN for NAUSEA/VOMITING, (Reported) Entered as Reported by: KISHA COBURN on 04/06/202232 Last Action: Continued on 04/07/20732 by ROSLYN CARLOS MD Justicifation of Admission Dx: Justifications for Admission: Justification of Admission Dx: N/A Cellulitis: Cellulitis ROSLYN CARLOS MD Apr 07, 2020 09:36
--- NOTE | 2020-04-07 09:38 | NUR ---
SW following. Discussed with RN, pt from home, room air. Discharge order for home with self care. Pt is needing a bariatric surgeon. RN advised no SW needs at this time. SW will continue to follow.
--- NOTE | 2020-04-07 14:00 | NUR ---
Wound/Ostomy Care Wound Type/Assessment: VLU to left lower lateral leg. Pt is currently seen twice a week in [facility]. Wound is red granulation and slough. Treatment Recommendations/Plan: Dressed with HFB, drawtex and foam, Change 2x weekly Education provided: POC, PU prevention Offloading surface/device: na Recommended Referrals/Tests: na Discharge Recommendations for dressings: F\U in [facility] on 04/08/20
[2020-04-07] MEDS ORDERED: ATORVASTATIN CALCIUM 40 MG TABLET. PO SCH (21:00)
== END 2020-04-07 11:27 | disposition home or self-care (01) | DRG 444 ==
LOC: ER 13:38 → ED HOLD 16:17 → 4 NORTH 19:50
PROVIDERS: ADMIT Family Medicine; ATTEND Family Medicine
DX: K80.20 Calculus of gallbladder without cholecystitis without obstruction (principal); E43 Unspecified severe protein-calorie malnutrition; Z68.44 Body mass index [BMI] 60.0-69.9, adult; E03.9 Hypothyroidism, unspecified; E66.01 Morbid (severe) obesity due to excess calories; E78.00 Pure hypercholesterolemia, unspecified; E78.5 Hyperlipidemia, unspecified; I10 Essential (primary) hypertension; I89.0 Lymphedema, not elsewhere classified; K76.0 Fatty (change of) liver, not elsewhere classified; L30.4 Erythema intertrigo; Z82.49 Family history of ischemic heart disease and other diseases of the circulatory system; Z86.14 Personal history of Methicillin resistant Staphylococcus aureus infection; Z87.442 Personal history of urinary calculi; F32.9 Major depressive disorder, single episode, unspecified; F41.9 Anxiety disorder, unspecified; G89.29 Other chronic pain; K21.9 Gastro-esophageal reflux disease without esophagitis; Z88.8 Allergy status to other drugs, medicaments and biological substances; D50.0 Iron deficiency anemia secondary to blood loss (chronic)
CPT/HCPCS: 36415; 76705; 80053; 83690; 85025; 96361; 96374; 96375; 96376; G0480; J0780; J2270; J2405; J2765; J3490; J7030; 99285-25; G0378

== ENCOUNTER → 2020-05-22 | Outpatient (CLI) | payer OTHER ==
[~2020-05-22] MED LIST changes: +ERGO500027 PO; -ERGO500089 PO; +LACT1CAP29 PO; -LACT1CAP37 PO; +ONDA4TAB12 PO; +PERFLUTREN PROTEIN-A MICROSPHR 0.22 MG/ML 3 ML VIAL. IV ONE; +ZINC50TA39 PO
--- NOTE | 2020-05-22 09:56 | CARD ---
MR#: [id number] Date of Study: 05/22/2020 Ordering Physician: THEE PICKETT, Referring Physician: THEE PICKETT, Tech: Cherry Quach RDCS APPROVED REPORT EXAM: Two-dimensional and M-mode echocardiogram with Doppler and color Doppler. Other Information Quality : Technically Limited Technically limited study due to morbid obesity INDICATION Pre-Op Echo Enhancing Agent Agent/Amount Used: Optison 1mL 2D DIMENSIONS RVDd2.5 (2.9-3.5cm)Left Atrium(2D)3.0 (1.6-4.0cm) IVSd1.3 (0.7-1.1cm)Aortic Root(2D)3.2 (2.0-3.7cm) LVDd5.8 (3.9-5.9cm)LVOT Diameter2.2 (1.8-2.4cm) PWd0.8 (0.7-1.1cm)LVDs3.7 (2.5-4.0cm) FS (%) 36.5 %SV108.2 ml LVEF(%)65.5 (>50%) Aortic Valve AoV Peak Rizwan.143.4cm/sAoV VTI30.8cm AO Peak GR.8.2mmHgLVOT Peak Rizwan.131.5cm/s LVOT VTI 32.68cmAO Mean GR.5mmHg SUMA (VMAX)3.97qf2KNB (VTI)4.20cm2 Mitral Valve MV E Ncilklrj498.8cm/sMV DECEL MPAT892ct MV A Cbtffuje173.5cm/sMV WSC83zu E/A Ratio1.1MVA (PHT)3.37cm2 TDI E/Lateral E'13.3E/Medial E'16.4 Tricuspid Valve TR P. Etxigwnb004zx/sRAP MAHAHDLL76sjXq TR Peak Gr.22moChBISU42uiNj Pulmonary Vein S1 Abqquqhg39.9cm/sD2 Xykzdchd75.5cm/s LEFT VENTRICLE The left ventricle is normal size. There is mild concentric left ventricular hypertrophy. The left ve ntricular systolic function is normal. The Ejection Fraction is 55-60%. There is normal LV segmental wall motion. RIGHT VENTRICLE The right ventricle is normal size. The right ventricular systolic function is normal. ATRIA The left atrium size is normal. The right atrium size is normal. The interatrial septum is intact wit h no evidence for an atrial septal defect or patent foramen ovale as noted on 2-D or Doppler imaging. AORTIC VALVE The aortic valve is calcified but opens well. Doppler and Color Flow revealed no significant aortic r egurgitation. There is no significant aortic valvular stenosis. MITRAL VALVE Mitral annular calcification is mild. There is no evidence of mitral valve prolapse. There is no mitr al valve stenosis. Doppler and Color-flow revealed trace mitral regurgitation. TRICUSPID VALVE The tricuspid valve is normal in structure and function. Doppler and Color Flow revealed trace tricus pid regurgitation. There is moderate pulmonary hypertension. The PA pressure was estimated at 47 mmHg . There is no tricuspid valve stenosis. PULMONIC VALVE The pulmonic valve is not well visualized. Doppler and Color Flow revealed no pulmonic valvular regur gitation. There is no pulmonic valvular stenosis. GREAT VESSELS The aortic root is normal in size. The ascending aorta is mildly dilated at 3.6 cm. The IVC is dilate d and collapses <50% with inspiration. PERICARDIAL EFFUSION There is no evidence of significant pericardial effusion. Critical Notification Critical Value: No <Conclusion> The left ventricular systolic function is normal. The Ejection Fraction is 55-60%. There is normal LV segmental wall motion. Trace mitral regurgitation. Trace tricuspid regurgitation. The PA pressure was estimated at 47 mmHg. There is no evidence of significant pericardial effusion. Signed by : Thee Pickett, Electronically Approved : 05/22/2020 09:56:17
== END ==
LOC: ECHO 07:55
PROVIDERS: ATTEND Internal Medicine Cardiovascular Disease
DX: Z01.810 Encounter for preprocedural cardiovascular examination (principal); I08.0 Rheumatic disorders of both mitral and aortic valves; I27.20 Pulmonary hypertension, unspecified
CPT/HCPCS: C8929; Q9956

== ENCOUNTER → 2021-07-03 | Day surgery (SDC) | payer OTHER ==
[~2021-07-03] VITALS: Ht 167.6 cm; Wt 198.0 kg
[~2021-07-03] MED LIST changes: +ACET500T68 PO; +CINN500C2 PO; -CITA40TA5 PO; +CITA40TA6 PO; +CLIN-94 PO; -CLIN300C9 PO; +COLE1TAB2 PO; -ERGO500027 PO; +ERGO500089 PO; -FLUC150T2 NS; +FLUC150T6 NS; +IV RINGERS,LACTATED 1000ML 1,000 ML IV SCH; -LACT1CAP29 PO; +LACT1CAP37 PO; +LIDOCAINE 2% PF 5 ML VIAL. ONE; +PANT20TA2 PO; -PERFLUTREN PROTEIN-A MICROSPHR 0.22 MG/ML 3 ML VIAL. IV ONE; +PROPOFOL 10 MG/ML (20ML) VIAL. IV ONE; +ROPI1TAB4 PO; +VIT1TABL32 PO
[2021-07-03 06:08] VITALS: BP 135/65
--- NOTE | 2021-07-03 07:13 | PDOC2 ---
CONSULT Date of Consult Date of Consult DATE: 07/03/21 TIME: 07:08 Reason for Consult Reason for Consult: Diarrhea History of Present Illness Reason for Visit: 55 year old Female presents with diarrhea. 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 No weight loss or bleeding is noted. No family history of IBD, celiac disease, and/or colon cancer is present. With the continued issues, she requests further evaluatoin. Past Medical History Cardiovascular: No pertinent hx Pulmonary: No pertinent hx Endocrine: Hypothyroidism Past Surgical History Past Surgical History: Cholecystectomy, Other Family History Family History: Diabetes, High Cholestrol, Hypertension Social History No ALCOHOL: none Drugs: None Current Medications Current Medications Current Medications Ringer's Solution 1,000 ml @ 50 mls/hr Q20H IV Last administered on 07/03/21at 06:39; Start 07/03/21 at 07:00; Stop 07/03/21 at 18:59 Propofol (Diprivan) 200 mg STK-MED ONCE IV ; Start 07/03/21 at 06:52; Stop 07/03/21 at 06:53; Status DC Lidocaine HCl (Lidocaine Pf 2% Vial) 5 ml STK-MED ONCE .ROUTE ; Start 07/03/21 at 06:52; Stop 07/03/21 at 06:53; Status DC Active Scripts Active Hydrocodone-Apap 7.5-325 (Hydrocodone Bit/Acetaminophen) 1 Tab Tablet 1 Tab PO PRN Q4HRS PRN Reported Ocuvite Tablet (Vit A,C & E/Lutein/Minerals) 1 Each Tablet 1 Tab PO DAILY 30 Days Colestipol Hcl 1 Gm Tablet 1 Gm PO DAILY Protonix (Pantoprazole Sodium) 20 Mg Tablet.dr 1 Tab PO DAILY Cinnamon (Cinnamon Bark) 500 Mg Capsule 1,000 Mg PO DAILY Acetaminophen 500 Mg Tablet 1 Tab PO PRN Q6HRS PRN 15 Days Ropinirole Hcl 1 Mg Tablet 1 Mg PO DAILY Citalopram Hbr (Citalopram Hydrobromide) 40 Mg Tablet 1 Tab PO DAILY Zinc 50 Mg Tablet 50 Mg PO DAILY Dakin's (Sodium Hypochlorite) 473 Ml Solution 473 Ml MC DAILY Vitamin D3 (Cholecalciferol (Vitamin D3)) 1,250 Mcg Capsule 1,250 Mcg PO DAILY Vitamin C (Ascorbic Acid) 500 Mg Capsule.er 1 Cap PO BID 30 Days Crestor (Rosuvastatin Calcium) 40 Mg Tablet 20 Mg PO HS Levothyroxine Sodium 25 Mcg Tablet 1 Tab PO DAILY Allergies Allergies: Coded Allergies: I S O L A T I O N *CONTACT* (Verified Allergy, Unknown, 07/03/21) mrsa/vre/CR-PSA- LLE wound amitriptyline HCl (Verified Adverse Reaction, Intermediate, 07/03/21) FEELS SPACY WHEN TAKES Uncoded Allergies: red meat (Adverse Reaction, Mild, GI upset, 02/04/15) ROS PSYCHOLOGICAL ROS: YES: Anxiety Physical Exam General: Alert, Oriented X3 Lungs: Clear to auscultation Heart: Normal S1, Normal S2 Abdomen: Normal bowel sounds, Soft, No tenderness Vitals VITALS Vital Signs Date Time Temp Pulse Resp B/P (MAP) Pulse Ox O2 Delivery O2 Flow Rate FiO2 07/03/21 06:08 97.2 70 22 97 97.2 Assessment/Plan Assessment/Plan Diarrhea- etiology to be determined. Differential includes: IBS, IBD, colon cancer, celiac disease, and/or collagenous colitis. R/B discussed with patient who is willing to proceed with EGD and colonoscopy. NELSON BAE MD Jul 03, 2021 07:13
[2021-07-03 08:22] VITALS: BP 156/68
--- NOTE | 2021-07-06 15:11 | PATHOLOGY ---
[facility] Accession Number: [id number] . 01 Material submitted: . PART A: duodenum - DUODENAL BIOPSIES PART B: colon - RANDOM COLON BIOPSIES . 01 Clinical history: . ABD PAIN/GERD/DIARRHEA R/O CELIAC/INTERNAL HEMORRHOIDS/INFLAMMATION . 02 Diagnosis: A. Duodenal biopsies: - No diagnostic abnormalities. . B. Random colon biopsies: - No diagnostic abnormalities. LBQ 07/06/2021 1041 Local . 02 Comment: Sections of the duodenal biopsy reveal multiple segments of duodenal and small intestine mucosa. Where best oriented, the mucosal villi show no sprue-like changes or significant inflammatory changes. . Sections of the random colon biopsy reveal multiple segments of colonic mucosa containing multiple small mucosal associated lymphoid aggregates. There is no evidence of a chronic destructive colitis, lymphocytic colitis, or collagenous colitis. (JPM/db; 07/06/2021) . 02 Electronically signed: . Ricardo Tabor MD, Pathologist NPI- [id number] . 01 Gross description: . A. The specimen is received in formalin, labeled "Fullerton, Latoya, duodenal BX" and the requisition designates the specimen as "duodenal bxs". The specimen consists of multiple roldan irregular tissues aggregating 1.5 x 0.8 x 0.2 cm which are filtered and submitted in toto in A1. . B. The specimen is received in formalin, labeled "Mason, Latoya, random colon bx's" and consists of multiple roldan irregular tissues aggregating 1.5 x 0.9 x 0.2 cm which are filtered and submitted in toto in B1. ([place]ASS; 07/03/2021) DKA/DKA 07/03/2021 1806 Local . 02 Pathologist provided ICD-10: R10.9, K21.9, R19.7 . 02 CPT . 962650, 903567 Specimen Comment: A courtesy copy of this report has been sent to [phone], [phone] Specimen Comment: [id number] Specimen Comment: Report sent to / DR JJ Specimen Comment: A duplicate report has been generated due to demographic updates. Performed at: 01 [facility] [address], [place] [id number] MD Shree Yusuf MD Phone: [phone] Performed at: [facility] [address], [place] [id number] MD Ricardo Tabor MD Phone: [phone]
== END | disposition home or self-care (01) ==
LOC: ENDOS 05:55
PROVIDERS: ATTEND Internal Medicine Gastroenterology
DX: R19.7 Diarrhea, unspecified (principal); K64.0 First degree hemorrhoids; K21.9 Gastro-esophageal reflux disease without esophagitis; K63.89 Other specified diseases of intestine; K31.89 Other diseases of stomach and duodenum; E78.00 Pure hypercholesterolemia, unspecified; E66.9 Obesity, unspecified; M19.90 Unspecified osteoarthritis, unspecified site; E03.9 Hypothyroidism, unspecified; F41.9 Anxiety disorder, unspecified; F32.9 Major depressive disorder, single episode, unspecified; Z87.440 Personal history of urinary (tract) infections; Z90.49 Acquired absence of other specified parts of digestive tract; Z98.890 Other specified postprocedural states; Z79.899 Other long term (current) drug therapy; Z88.8 Allergy status to other drugs, medicaments and biological substances
CPT/HCPCS: 43239; 45380; J2704; 88305

== ENCOUNTER → 2021-07-10 | Outpatient (CLI) | payer OTHER ==
[2021-07-03 08:22] VITALS: BP 156/68
[~2021-07-10] MED LIST changes: -IV RINGERS,LACTATED 1000ML 1,000 ML IV SCH; -LIDOCAINE 2% PF 5 ML VIAL. ONE; -PROPOFOL 10 MG/ML (20ML) VIAL. IV ONE
--- NOTE | 2021-07-12 15:59 | RAD ---
EXAM: ULTRASOUND PELVIS 07/10/2021 INDICATION: Reason: Post Menopausal Bleeding / Spl. Instructions: / History: . COMPARISON: None available. TECHNIQUE: Transabdominal sonography was performed. FINDINGS: Study is limited due to body habitus. The uterus and ovaries are not clearly visualized. No apparent adnexal mass or free fluid. The patient refused transvaginal imaging. Urinary bladder is nondistended and not well evaluated. IMPRESSION: Limited exam. No apparent acute abnormality. Electronically signed by: Skyler Ponce MD (07/12/2021 3:57 PM) [id number]
== END ==
LOC: US 15:48
PROVIDERS: ATTEND Family Medicine
DX: N95.0 Postmenopausal bleeding (principal)
CPT/HCPCS: 76856